=== PATIENT | male | born 1955 | race Caucasian/White ===

== ENCOUNTER → 2016-07-01 | Outpatient (CLI) | payer OTHER ==
[2016-07-01 17:43] LABS: BASO % 0.4 %; BASO ABS # 0.02 K/uL (0-0.2); COMPLETE YES; EOS % 0.9 %; HEMATOCRIT 44.4 % (42-52); IG% 0.2 %; LYMPH % 26.7 %; LYMPH ABS # 1.43 K/uL (1.2-3.4); MEAN CELL VOLUME 94.7 fL (80-100); MEAN CORPUSCULAR HEMOGLOBIN 32.4 pg (25-34); MEAN CORPUSCULAR HGB CONC 34.2 g/dl (32-36); MEAN PLATELET VOLUME 9.9 fL (7.4-10.4); MONO % 7.1 %; NEUT % 64.7 %; PLATELET COUNT 173 K/uL (130-400); RED BLOOD COUNT 4.69 M/uL (4.7-6.1); WHITE BLOOD COUNT 5.35 K/uL (4.8-10.8)
[2016-07-01 18:24] LABS: ALT/SGPT 20 U/L (12-78); AST/SGOT 12 U/L (15-37); BLOOD UREA NITROGEN 13 mg/dl (7-18); BUN/CREATININE RATIO 17.7 (10-20); CALCIUM 8.8 mg/dl (8.5-10.1); CARBON DIOXIDE 30 mmol/L (21-32); CHLORIDE 108 mmol/L (98-107); CHOLESTEROL 150 mg/dl (0-200); CREATININE 0.75 mg/dl (0.60-1.40); GLUCOSE 89 mg/dl (70-99); POTASSIUM 4.1 mmol/L (3.5-5.1); SODIUM 143 mmol/L (136-145)
[2016-07-01 18:36] LABS: ALB/GLOB RATIO 1.5 (0.9-2); ALKALINE PHOSPHATASE 110 U/L (45-117); CHOLESTEROL/HDL RATIO 3.2; HDL CHOLESTEROL 47 mg/dl; LDL CHOLESTEROL CALCULATED 87 mg/dl; TRIGLYCERIDES 82 mg/dl (0-150); VERY LOW DENSITY LIPOPROT CALC 16 mg/dl
[2016-07-02 06:13] LABS: ESTIMATED AVERAGE GLUCOSE 114 mg/dl; HA1C FLAG Normal (Normal)
== END | disposition home or self-care (01) ==
LOC: C.LABPVFM 11:18
PROVIDERS: ATTEND Neuromusculoskeletal Medicine & OMM
DX: Z00.00 Encounter for general adult medical examination without abnormal findings (principal); R53.83 Other fatigue

== ENCOUNTER → 2016-09-17 | Outpatient (CLI) | payer OTHER ==
[2016-09-17 12:44] LABS: BASO % 0.4 %; BASO ABS # 0.02 K/uL (0-0.2); COMPLETE YES; EOS % 1.9 %; HEMATOCRIT 42.6 % (42-52); IG% 0.2 %; LYMPH % 31.8 %; LYMPH ABS # 1.81 K/uL (1.2-3.4); MEAN CELL VOLUME 93.6 fL (80-100); MEAN CORPUSCULAR HEMOGLOBIN 32.5 pg (25-34); MEAN CORPUSCULAR HGB CONC 34.7 g/dl (32-36); MEAN PLATELET VOLUME 9.4 fL (7.4-10.4); NEUT % 59.7 %; PLATELET COUNT 189 K/uL (130-400); RED BLOOD COUNT 4.55 M/uL (4.7-6.1); WHITE BLOOD COUNT 5.69 K/uL (4.8-10.8)
[2016-09-17 13:10] LABS: BLOOD UREA NITROGEN 19 mg/dl (7-18); BUN/CREATININE RATIO 27.1 (10-20); CALCIUM 9.1 mg/dl (8.5-10.1); CARBON DIOXIDE 28 mmol/L (21-32); CHLORIDE 108 mmol/L (98-107); CREATININE 0.69 mg/dl (0.60-1.40); GLUCOSE 82 mg/dl (70-99); SODIUM 141 mmol/L (136-145)
== END | disposition home or self-care (01) ==
LOC: C.LAB 11:04
PROVIDERS: ATTEND Surgery
DX: Z01.812 Encounter for preprocedural laboratory examination (principal); K40.90 Unilateral inguinal hernia, without obstruction or gangrene, not specified as recurrent

== ENCOUNTER 2016-09-22 05:26 | Day surgery (SDC) | payer OTHER ==
[2016-09-19 14:42] VITALS: BMI 23.0
[~2016-09-22] VITALS: Ht 190.5 cm; Wt 84.1 kg
[2016-09-22 05:49] VITALS: BP 115/72; PULSE 65; TEMP 36.4; O2SAT 96; Ht 190.5 cm; Wt 84.1 kg
[2016-09-22] MEDS ORDERED: CEFAZOLIN 2000 MG/60 ML D5W IV SCH (06:00)
[2016-09-22] MEDS ORDERED: LACTATED RINGER'S 1000ML 1,000 ML IV SCH ×2 (06:00)
[2016-09-22] MEDS ORDERED: ROCURONIUM BROMIDE 10 MG/ML 5 ML VIAL ONE (06:16)
[2016-09-22] MEDS ORDERED: LIDOCAINE HCL 2% 2 ML VIAL (20MG/ML) ONE (06:16)
[2016-09-22] MEDS ORDERED: DEXAMETHASONE SOD INJ 4 MG/ML VIAL ONE (06:16)
[2016-09-22] MEDS ORDERED: MIDAZOLAM HCL 1 MG/ML 2ML VIAL ONE (06:16)
[2016-09-22] MEDS ORDERED: ONDANSETRON INJ 2 MG/ML 2 ML VIAL ONE (06:16)
[2016-09-22] MEDS ORDERED: PROPOFOL IV EMULSION 10 MG/ML 20 ML VIAL IV ONE ×2 (06:16→07:47)
[2016-09-22] MEDS ORDERED: FENTANYL CITRATE INJ 50 MCG/1 ML 2 ML VIAL ONE (06:17)
--- NOTE | 2016-09-22 07:02 | History & Physical Bridge Note ---
H&P Re-Evaluation Bridge Note: I have examined the patient, reviewed the History & Physical and in the interval since the performance of the History & Physical I have noted the following changes of clinical significance: No changes noted
[2016-09-22] MEDS ORDERED: SODIUM CHLORIDE 0.9% INJ 10 ML VIAL ONE (07:29)
[2016-09-22] MEDS ORDERED: EpHEDrine SULFATE INJ 50 MG/ML AMP ONE (07:29)
[2016-09-22] MEDS ORDERED: ATROPINE SULFATE 0.1 MG/ML 5ML SYR IV PRN (08:15)
[2016-09-22] MEDS ORDERED: FENTANYL CITRATE INJ 50 MCG/1 ML 2 ML VIAL IV PRN (08:15)
[2016-09-22] MEDS ORDERED: LABETALOL HCL IV 5 MG/ML 20ML IV PRN (08:15)
[2016-09-22] MEDS ORDERED: ONDANSETRON INJ 2 MG/ML 2 ML VIAL IV PRN ×2 (08:15→08:30)
[2016-09-22] MEDS ORDERED: KETOROLAC TROMETHAMINE 30 MG/ML VIAL IV. PRN (08:15)
[2016-09-22] MEDS: BUPIVACAINE/EPINEPHRINE 0.5% MPF 1:200,000 10 ML VIAL ONE (08:20)
[2016-09-22] MEDS ORDERED: HYDROCODONE/ACETAMOPHEN 5/325MG TAB PO PRN ×2 (08:30)
--- NOTE | 2016-09-22 08:34 | Discharge Instructions ---
Discharge Instructions Date of Service Sep 22, 2016. Admission Reason for Admission: Right Inguinal Hernia Discharge Discharge Diagnosis / Problem: Right Inguinal Hernia Discharge Goals Goal(s): Decrease discomfort, Improve function Activity Recommendations Activity Limitations: as noted below Lifting Limitations: no more than 10 pounds Exercise/Sports Limitations: until after follow-up appointment May Resume Sexual Activity: after follow-up appointment Shower/Bathe: tomorrow . Instructions / Follow-Up Instructions / Follow-Up Follow-up with Dr. Juares in the office in 1-2 weeks. Please call the office at [phone] to make an appointment if you do not have one already. Please call the office at [phone] with any questions or concerns. Current Hospital Diet Patient's current hospital diet: Discharge Diet Recommended Diet: Regular Diet Procedures Procedures Performed: Open right inguinal hernia repair with mesh Pending Studies Studies pending at discharge: no Laboratory Results Hemoglobin A1c Test 07/01/16 11:36 Range/Units Estimated Average Glucose 114 mg/dl Hemoglobin A1c 5.6 4.5-5.6 % Lipid Panel Test 07/01/16 11:36 Range/Units Triglycerides Level 82 0-150 mg/dl Cholesterol Level 150 0-200 mg/dl HDL Cholesterol 47 mg/dl Cholesterol/HDL Ratio 3.2 LDL Cholesterol, Calculated 87 mg/dl Medical Emergencies . Who to Call and When: Medical Emergencies: If at any time you feel your situation is an emergency, please call 911 immediately. . Non-Emergent Contact Non-Emergency issues call your: Primary Care Provider, Surgeon Call Non-Emergent contact if: temperature is above 101.5, your pain is not controlled, wound has increased drainage, wound has increased redness . "Provider Documentation" section prepared by Beth Khoury. . VTE Core Measure Inpt VTE Proph given/why not?: SCD's [place] Drug Monitoring Program Search Results: patient reviewed within database, no issues identified
--- NOTE | 2016-09-22 08:41 | [facility] Operative Report ---
Operative Report Operative Date Sep 22, 2016. Pre-Operative Diagnosis Right inguinal hernia Post-Operative Diagnosis direct and indirect inguinal hernias Procedure(s) Performed Open right inguinal hernia repair with mesh;ilioinguinal neurolysis Surgeon Dr. Juares Gunner'S Mate M Surgeon(s) Beth Khoury PA-C Estimated Blood Loss 10cc Findings direct and indirect inguinal hernia Anesthesia LMA Complication(s) None Disposition Recovery Room / PACU Description of Procedure After informed consent was obtained the patient taken to the operating suite placed in supine position. After successful placement of a laryngeal mask airway a Camacho catheter was placed and the lower abdomen was shaved and sterilely prepped and draped in usual fashion. We began with an inguinal incision with a 15 blade scalpel and carried down through the soft tissue using electrocautery. A Breezylander retractor was used to help with exposure. We skeletonized the external oblique aponeurosis and then made a small incision and it with a new blade. Metzenbaum scissors were used to extend this through the external ring as well as for several centimeters proximally. Once in the inguinal canal we were able to bluntly dissect the cord and cord structures away from surrounding tissue. I was able to gently elevate the cord off the pubic bone with blunt finger dissection and placed a Hilmar drain around it. As soon as we did this we noted that there was a moderate size direct hernia that was easily reducible. We examined the cord and cord structures and found a standard indirect hernia sac. We bluntly dissected this as well as small amounts electrocautery back to its neck. It then easily dunked back into the abdominal cavity leaving just the skeletonized cord and cord structures. We thoroughly irrigated the wound. We placed a keyhole polypropylene mesh as an onlay secured it distally to Samuel's ligament laterally along the shelving portion of Poupart's ligament and medially along the midline musculature. The "arms" wrapped around behind the cord and cord structures and secured underlying muscle. We used 0 Ethibond to perform all this. Final irrigation was performed. The mesh laid nice and tension-free without impinging the cord. We did use Marcaine around the edges of the mesh for postoperative analgesia. External oblique aponeurosis was closed using 2-0 Vicryl in a running fashion. Soft tissue was irrigated and closed using 3-0 Vicryl and skin was closed using 4-0 Monocryl. Some additional Marcaine was injected around the skin incision. Dermabond glue was used as a dressing. The patient was awaken extubated and transferred recovery in stable condition I attest to the content of the Intraoperative Record and any orders documented therein. Any exceptions are noted below.
[2016-09-22] MEDS ORDERED: SODIUM CHLORIDE 0.9% 1000ML 1,000 ML IV SCH (09:00)
--- NOTE | 2016-09-22 09:53 | Anesthesiology Progress Note ---
Anesthesia Post Op Note Date & Time Sep 22, 2016 at 09:53 Vital Signs Pain Intensity: 4 Vital Signs Past 12 Hours Date Time Temp Pulse Resp B/P (MAP) Pulse Ox O2 Delivery O2 Flow Rate FiO2 09/22/16 09:20 36.5 68 18 110/67 98 Room Air 09/22/16 09:15 67 21 103/54 96 Room Air 09/22/16 09:05 36.4 68 20 100/56 97 Room Air 09/22/16 08:55 65 12 99/59 100 Mask 10 09/22/16 08:45 72 15 108/70 98 Mask 10 09/22/16 08:35 85 16 132/81 99 Mask 10 09/22/16 08:28 36.3 85 13 119/78 99 Mask 10 09/22/16 05:49 36.4 65 22 115/72 (86) 96 Room Air Notes Mental Status: alert / awake / arousable, participated in evaluation Pt Amnestic to Procedure: Yes Nausea / Vomiting: adequately controlled Pain: adequately controlled Airway Patency, RR, SpO2: stable & adequate BP & HR: stable & adequate Hydration State: stable & adequate Anesthetic Complications: no major complications apparent
[2016-09-22 12:25] VITALS: BP 93/48; PULSE 63; TEMP 36.6; O2SAT 97
== END 2016-09-22 15:10 | disposition home or self-care (01) ==
LOC: C.OR 05:26
PROVIDERS: ATTEND Surgery
DX: K40.90 Unilateral inguinal hernia, without obstruction or gangrene, not specified as recurrent (principal); Z87.891 Personal history of nicotine dependence

== ENCOUNTER → 2016-10-21 | Outpatient (CLI) | payer OTHER ==
[~2016-10-21] VITALS: Ht 191.8 cm; Wt 84.0 kg
[2016-10-21 13:41] VITALS: BP 106/71; PULSE 77; Ht 191.8 cm; Wt 84.0 kg
== END | disposition home or self-care (01) ==
LOC: C.NEUR 13:33
PROVIDERS: ATTEND Physician Assistant Medical
DX: G47.33 Obstructive sleep apnea (adult) (pediatric) (principal); R53.83 Other fatigue

== ENCOUNTER → 2016-12-09 | Outpatient (CLI) | payer OTHER ==
[~2016-12-09] VITALS: Ht 191.8 cm; Wt 84.4 kg
[2016-12-09 15:51] VITALS: BP 118/76; PULSE 71; Ht 191.8 cm; Wt 84.4 kg
== END | disposition home or self-care (01) ==
LOC: C.NEUR 13:36
PROVIDERS: ATTEND Internal Medicine Pulmonary Disease
DX: G47.33 Obstructive sleep apnea (adult) (pediatric) (principal); R53.83 Other fatigue

== ENCOUNTER → 2017-03-10 | Outpatient (CLI) | payer OTHER ==
[~2017-03-10] VITALS: Ht 191.8 cm; Wt 89.0 kg
[2017-03-10 12:27] VITALS: BP 118/82; PULSE 71; Ht 191.8 cm; Wt 89.0 kg
== END | disposition home or self-care (01) ==
LOC: C.NEUR 12:00
PROVIDERS: ATTEND Physician Assistant Medical
DX: G47.33 Obstructive sleep apnea (adult) (pediatric) (principal); R53.83 Other fatigue

== ENCOUNTER → 2017-09-10 | Outpatient (CLI) | payer OTHER ==
[2017-09-10 12:48] LABS: BASO % 0.2 %; BASO ABS # 0.01 K/uL (0-0.2); EOS % 1.8 %; EOS ABS # 0.09 K/uL (0-0.5); HEMATOCRIT 44.4 % (42-52); HEMOGLOBIN 15.2 g/dL (14.0-18.0); IG# 0.01 K/uL (0.00-0.02); LYMPH % 31.8 %; LYMPH ABS # 1.62 K/uL (1.2-3.4); MEAN CELL VOLUME 94.3 fL (80-100); MEAN CORPUSCULAR HEMOGLOBIN 32.3 pg (25-34); MEAN CORPUSCULAR HGB CONC 34.2 g/dl (32-36); MEAN PLATELET VOLUME 9.9 fL (7.4-10.4); MONO % 6.9 %; MONO ABS # 0.35 K/uL (0.11-0.59); NEUT % 59.1 %; NEUT ABS # 3.02 K/uL (1.4-6.5); PLATELET COUNT 193 K/uL (130-400); RED CELL DISTRIBUTION WIDTH CV 13.3 % (11.5-14.5); RED CELL DISTRIBUTION WIDTH SD 45.8 fL (36.4-46.3)
[2017-09-10 13:12] LABS: ALBUMIN 3.9 gm/dl (3.4-5.0); ALKALINE PHOSPHATASE 95 U/L (45-117); ALT/SGPT 19 U/L (12-78); AST/SGOT 12 U/L (15-37); BLOOD UREA NITROGEN 17 mg/dl (7-18); CALCIUM 8.5 mg/dl (8.5-10.1); CARBON DIOXIDE 27 mmol/L (21-32); CHOLESTEROL 147 mg/dl (0-200); CREATININE 0.74 mg/dl (0.60-1.40); GLUCOSE 95 mg/dl (70-99); LDL CHOLESTEROL CALCULATED 89 mg/dl; SODIUM 142 mmol/L (136-145); TOTAL PROTEIN 6.5 gm/dl (6.4-8.2)
== END | disposition home or self-care (01) ==
LOC: C.LABPVFM 08:30
PROVIDERS: ATTEND Neuromusculoskeletal Medicine & OMM
DX: R53.83 Other fatigue (principal); Z13.220 Encounter for screening for lipoid disorders

== ENCOUNTER 2021-02-05 23:34 | Observation (INO) ==
[2021-02-05] MEDS ORDERED: SODIUM CHLORIDE 0.9% 1000ML 1,000 ML IV ONE ×2 (23:53)
[2021-02-05] MEDS ORDERED: ACETAMINOPHEN 500 MG TAB PO STA (23:54)
--- NOTE | 2021-02-05 23:59 | Emergency Department Note ---
Impression & Plan COVID-19, Acute hyponatremia, Hypoxia, Acute hypotension, Generalized weakness ED Provider Note Name: BONG CHAPMAN Age: 65 Sex: M Arrives Via: Walk-In Informant: Patient, ED Provider: You Vásquez MD Chief Complaint: Weakness Impression: As per impressions above Medical Decision Making: This is a 65-year-old gentleman with a history of obstructive sleep apnea, neuropathy, anxiety amongst other arrives for evaluation of significant worsening of weakness and exhaustion. Patient 13 days into Covid symptoms which initially been improving but over the last few days have been worsening. I will note patient states he is not vaccinated for Covid. On arrival patient is mildly hypotensive appears significantly dehydrated and is very tired appearing. He does not have any focal neurologic deficits nor any significant headache thus I do not feel neuroimaging warranted emergently. Chest x-ray obtained and reveals significant bilateral inflammation consistent with Covid. His oxygen was noted to drop to the upper 80s and he was placed on nasal cannula O2 with vast improvement in his symptoms. Labs returned significant hyponatremia which is new for patient. With an elevated D-dimer in the setting of Covid I did feel CTA was indicated which fortunately reveals no acute PE but does reveal significant lung inflammation. Patient did receive Decadron IV given his hypoxia in the setting of Covid despite he is almost 2 weeks into his symptoms. He does not have any clear evidence of a lobar pneumonia that would require antibiotics at this time. Patient does not have any evidence of coronary symptoms. Given the hypoxia, hyponatremia and his progressive worsening at home I do feel that hospitalization is indicated and hospitalist was consulted for further management. Prior Medical Record and Triage/Nursing Notes reviewed by Me Additional history obtained from chart Differentials:Reactive airway disease, pneumonia, pneumothorax, COPD, CHF, infections, cardiac ischemia, pulmonary embolism, musculoskeletal, gastrointestinal, as well as other pathologies. Vital Signs: reviewed and remarkable for hypoxia, hypotension Interventions: Normal saline bolus 2 L IV, Decadron 10 mg IV, nasal cannula O2 Labs:Reviewed and remarkable for elevated D-dimer Imagin view chest x-ray bilateral diffuse pulmonary infiltrates consistent with viral process Per stat rad read CT without PE does reveal significant bilateral pulmonary infiltrates consistent with viral process EKG:Per My Interpretation: Indication Weakness: NSR 70 bpm, qtc 436. No Ectopy. No Ischemia. Compared to EKG 1/19/21, no significant changes. Cardiac/Tele Monitoring: Cardiac Monitoring: An Order was placed for continuous cardiac monitoring. The monitor shows a rate of 70 with a normal sinus rhythm. Consults:Dr Dariusz SNYDER Hospitalist Plan: Disposition:Hospitalization. Condition: Good History of Present Illness:This is a 65-year-old gentleman who arrives for evaluation of weakness. Patient notes he developed Covid symptoms about 13 to 14 days ago and tested positive on 01/28/2021. He initially was starting to feel better until about 2 to 3 days ago. He has had rapidly worsening generalized weakness fatigue shortness of breath and exhaustion. He does note that he started having fevers again as well. He notes just walking around [place] makes him much weaker. Checking his oxygen at home he was noted to have pulse oximeter of 70% after ambulation. He states that rest seems to make symptoms better. He states he has lost all ability to eat and has only been able to drink a little bit over the last week or 2 due to his fatigue. He has no chest pain, back pain, abdominal pain, nausea, vomiting, rashes, urinary symptoms, black or bloody stools, leg swelling, rashes, headaches, neck pain, sore throat, runny nose nor other symptoms. He has been on no recent antibiotics. He uses Motrin for discomfort with mild improvement. He states he had some labs done this morning but is unsure of what the results are. Patient denies any recent falls, trauma, injuries, syncope. Patient denies any history of DVT/PE. Patient denies any calf pain or swelling. ROS: See above HPI for pertinent positives & negatives. A total of 10 systems reviewed and were otherwise negative. 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 EYES: No scleral icterus, unremarkable pupils. ENT: Mucous membranes dry, no nasal congestion. NECK: No masses appreciated, nomeningismus, trachea is midline. RESPIRATORY: Mild dyspnea, diffuse crackles. Equal bilaterally. No wheeze, no rhonchi. CARDIOVASCULAR: Regular rate and rhythm.No murmurs, rubs, gallops appreciated. GASTROINTESTINAL: Abdomen soft, non-tender, no peritonitis.Bowel sounds positive.No masses appreciated. BACK: No midline tenderness, no CVA tenderness EXTREMITIES: Normal motion all extremities, no cyanosis, no edema. NEUROLOGIC: Alert and oriented, no acute motor or sensory deficits, no focal weakness, cranial nerves grossly intact. SKIN: No rash, no jaundice, no diaphoresis. PSYCH: Appropriate GCS: 15 ED Course: Times/Reassessments: With IV fluids and nasal cannula O2 patient is feeling much better he is breathing comfortably and is in no distress. He is agreeable to hospitalist evaluation and hospitalization. You Vásquez MD Past Med/Surg History Medical History Arthritis Emphysema lung Hepatitis A History of cardiac murmur as a child Neuropathy Scoliosis Situational anxiety Sleep apnea Surgical History H/O left knee surgery H/O right inguinal hernia repair History of cataract surgery History of colonoscopy History of hernia surgery History of laparoscopy History of non-cataract eye surgery History of surgery History of tonsillectomy and adenoidectomy S/P ankle fusion S/P hernia repair S/P left knee arthroscopy Family History Sister Breast cancer Cancer Father Prostate cancer Family history of cardiac disorder Hypertension Cancer Mother Family history of cardiac disorder Diabetes Hypertension Cancer Other SIDS (sudden infant syndrome) Denies family history of Colon cancer Ovarian cancer Crohn's disease Myocardial infarction Ulcerative colitis Social History Smoking Status: Never smoker Tobacco Type: Cigarettes Age Started Using Tobacco: 12; Age Quit Using Tobacco: 22; packs per day: 0.5; Second Hand Exposure: No; Hx Alcohol Use: Yes Alcohol type: wine Alcohol Intake Frequency Comment: 2 glasses of wine a day Hx Substance Use: No Preferred Language: Slovak Communication Ability: Effective Visual Impairment: No Limitations Hearing Ability: Normal Business Segment Manager Required: No Beliefs That Will Affect Care: None marital status: / Current Living Situation: Other Current Living Situation Comment: lives with twin sons current occupational status: retired current occupation: used to work in [employer] Feels Safe at Home: Yes Childhood Exposure to Second-Hand Smoke: No Diet Comment: radha lawson Dental Care, Regularly: Yes Physical Activity Frequency: Daily Physical Activity Frequency Comment: gardening, housework, yardwork Seatbelt Use: always Sunscreen Use: No Assistive Devices: Glasses Allergies Allergies Allergy/AdvReac Type Severity Reaction Status Date / Time No Known Allergies Allergy Verified 02/05/21 23:48 Home Meds Home Medications Medication Instructions Recorded Confirmed No Known Home Medications 01/29/21 02/05/21 Results & Data (ED) Vital Signs Vital Signs - 24 hr 02/05/21 23:38 02/05/21 23:49 02/05/21 23:53 Temperature 38.3 C H Temperature Source Temporal Artery Scan Pulse Rate 82 Pulse Rate [Exercises] 79 Pulse Rate [Right Finger] 76 Respiratory Rate 16 17 Respiratory Rate [Exercises] 20 Respiratory Effort / Characteristics Non-Labored Spontaneous Respiratory Depth Normal Blood Pressure 111/61 Blood Pressure [Right Arm] 100/68 Blood Pressure Mean 77 Blood Pressure Mean [Right Arm] 78 Blood Pressure Position Sitting Pulse Oximetry 93 92 Pulse Oximetry [Exercises] 88 L Oxygen Delivery Method Room Air Room Air Room Air Oxygen Flow Rate Sepsis Recent Fever Within 48 Hours Yes Sepsis New/Unexplained Change in Mental Status N/A Sepsis Action Taken by Nursing No Action Required Oxygen Flow Rate - Titration Pulse Oximetry Post Tiitration 02/06/21 01:27 02/06/21 01:36 02/06/21 03:36 Temperature Temperature Source Pulse Rate Pulse Rate [Exercises] Pulse Rate [Right Finger] 80 81 Respiratory Rate 18 16 Respiratory Rate [Exercises] Respiratory Effort / Characteristics Respiratory Depth Blood Pressure Blood Pressure [Right Arm] 109/44 L 106/72 Blood Pressure Mean Blood Pressure Mean [Right Arm] 65 83 Blood Pressure Position Pulse Oximetry 90 94 94 Pulse Oximetry [Exercises] Oxygen Delivery Method Room Air Nasal Cannula Nasal Cannula Oxygen Flow Rate 2 2 Sepsis Recent Fever Within 48 Hours Sepsis New/Unexplained Change in Mental Status Sepsis Action Taken by Nursing Oxygen Flow Rate - Titration 2 Pulse Oximetry Post Tiitration 96 Laboratory Data Result diagrams: 02/06/21 00:00 02/06/21 00:00 Lab Results 02/06/21 02/06/21 02/06/21 Range/Units 00:00 00:00 00:00 WBC 3.62 L (4.8-10.8) K/uL RBC 4.21 L (4.7-6.1) M/uL Hgb 13.7 L (14.0-18.0) g/dL Hct 37.9 L (42-52) % MCV 90.0 (80-100) fL MCH 32.5 (25-34) pg MCHC 36.1 H (32-36) g/dL RDW Std Deviation 41.5 (36.4-46.3) fL RDW Coeff of Heather 12.6 (11.5-14.5) % Plt Count 187 (130-400) K/uL MPV 9.8 (7.4-10.4) fL Immature Gran % (Auto) 0.3 % Neut % (Auto) 82.9 % Lymph % (Auto) 11.0 % Brown % (Auto) 5.5 % Eos % (Auto) 0.0 % Baso % (Auto) 0.3 % Neut # (Auto) 3.00 (1.4-6.5) K/uL Lymph # (Auto) 0.40 L (1.2-3.4) K/uL Brown # (Auto) 0.20 (0.11-0.59) K/uL Eos # (Auto) 0.00 (0-0.5) K/uL Baso # (Auto) 0.01 (0-0.2) K/uL Immature Gran # (Auto) 0.01 (0.00-0.02) K/uL D-Dimer 1430 H* (0-500) ug/L FEU Sodium 125 L (136-145) mmol/L Potassium 3.5 (3.5-5.1) mmol/L Chloride 89 L (98-107) mmol/L Carbon Dioxide 28 (21-32) mmol/L Anion Gap 8.0 (3-11) BUN 12 (7-18) mg/dl Creatinine 0.64 (0.6-1.4) mg/dl Est Cr Clr Drug Dosing 129.4 ml/min Est GFR ( Amer) 117.4 ml/min Est GFR (Non-Af Amer) 101.3 ml/min BUN/Creatinine Ratio 18.6 (10-20) Glucose 113 H (70-99) mg/dl Osmolality (280-300) mOsm/kg Calcium 8.0 L (8.5-10.1) mg/dl Magnesium 2.4 (1.8-2.4) mg/dl Total Bilirubin 0.4 (0.2-1) mg/dl Direct Bilirubin 0.2 (0-0.2) mg/dl AST 46 H (15-37) U/L ALT 40 (12-78) Alkaline Phosphatase 93 (45-117) U/L Troponin I < 0.015 (0-0.045) ng/ml Total Protein 5.9 L (6.4-8.2) gm/dl Albumin 2.5 L (3.4-5.0) gm/dl Procalcitonin (0-0.5) ng/ml 02/06/21 02/06/21 Range/Units 00:00 00:00 WBC (4.8-10.8) K/uL RBC (4.7-6.1) M/uL Hgb (14.0-18.0) g/dL Hct (42-52) % MCV (80-100) fL MCH (25-34) pg MCHC (32-36) g/dL RDW Std Deviation (36.4-46.3) fL RDW Coeff of Heather (11.5-14.5) % Plt Count (130-400) K/uL MPV (7.4-10.4) fL Immature Gran % (Auto) % Neut % (Auto) % Lymph % (Auto) % Brown % (Auto) % Eos % (Auto) % Baso % (Auto) % Neut # (Auto) (1.4-6.5) K/uL Lymph # (Auto) (1.2-3.4) K/uL Brown # (Auto) (0.11-0.59) K/uL Eos # (Auto) (0-0.5) K/uL Baso # (Auto) (0-0.2) K/uL Immature Gran # (Auto) (0.00-0.02) K/uL D-Dimer (0-500) ug/L FEU Sodium (136-145) mmol/L Potassium (3.5-5.1) mmol/L Chloride (98-107) mmol/L Carbon Dioxide (21-32) mmol/L Anion Gap (3-11) BUN (7-18) mg/dl Creatinine (0.6-1.4) mg/dl Est Cr Clr Drug Dosing ml/min Est GFR ( Amer) ml/min Est GFR (Non-Af Amer) ml/min BUN/Creatinine Ratio (10-20) Glucose (70-99) mg/dl Osmolality 257 L (280-300) mOsm/kg Calcium (8.5-10.1) mg/dl Magnesium (1.8-2.4) mg/dl Total Bilirubin (0.2-1) mg/dl Direct Bilirubin (0-0.2) mg/dl AST (15-37) U/L ALT (12-78) Alkaline Phosphatase (45-117) U/L Troponin I (0-0.045) ng/ml Total Protein (6.4-8.2) gm/dl Albumin (3.4-5.0) gm/dl Procalcitonin 0.11 (0-0.5) ng/ml Administered Medications Discontinued Medications Acetaminophen (Acetaminophen 500 Mg Tab) 1,000 mg PO NOW STA Stop: 02/05/21 23:55 Last Admin: 02/06/21 00:14 Dose: 1,000 mg Documented by: [id number] Dexamethasone Sodium Phosphate (DexamethasonePf 10 Mg/Ml Vial) 10 mg IV NOW ONE Stop: 02/06/21 02:09 Last Admin: 02/06/21 02:49 Dose: 10 mg Documented by: [id number] Sodium Chloride (Nss 1000ml) 1,000 mls @ 999 mls/hr IV .Q1H1M ONE Stop: 02/06/21 00:53 Last Infusion: 02/06/21 01:47 Dose: 0 mls/hr Documented by: [id number] Admin: 02/06/21 00:11 Dose: 999 mls/hr Documented by: [id number] Sodium Chloride (Nss 1000ml) 1,000 mls @ 999 mls/hr IV .Q1H1M ONE Stop: 02/06/21 00:53 Last Infusion: 02/06/21 03:03 Dose: 0 mls/hr Documented by: [id number] Admin: 02/06/21 01:47 Dose: 999 mls/hr Documented by: [id number] Ioversol (Optiray 320 125ml) 120 ml IV ONCE ONE Stop: 02/06/21 01:50 Last Admin: 02/06/21 01:49 Dose: 120 ml Documented by: [id number] Discharge Plan Visit Data Chief Complaint: Illness Stated Complaint: CONFUSION,NO ENERGY - O2 LEVEL LOW ED Provider: You Vásquez Discharge Problem: COVID-19, Acute hyponatremia, Hypoxia, Acute hypotension, Generalized weakness Forms Stand Alone Forms: [facility] Move In History Prescriptions Prescriptions: No Action No Known Home Medications RF: 0 Referrals Referrals: Jd Chapman, [Primary Care Provider] -
[2021-02-06 00:27] LABS: Basophils # (auto) 0.01 K/uL (0-0.2); Basophils % (auto) 0.3 %; Hematocrit (blood only) 37.9 % (42-52); Hemoglobin 13.7 g/dL (14.0-18.0); Immature Granulocytes # (auto) 0.01 K/uL (0.00-0.02); Immature Granulocytes % (auto) 0.3 %; Mean Corpuscular Hemoglobin 32.5 pg (25-34); Mean Corpuscular Hgb Conc 36.1 g/dL (32-36); Mean Platelet Volume 9.8 fL (7.4-10.4); Monocytes % (auto) 5.5 %; Neutrophils % (auto) 82.9 %; Platelet Count 187 K/uL (130-400); RDW Coefficient of Variation 12.6 % (11.5-14.5); RDW Standard Deviation 41.5 fL (36.4-46.3); Red Blood Count 4.21 M/uL (4.7-6.1); White Blood Count 3.62 K/uL (4.8-10.8)
[2021-02-06 00:44] LABS: Alanine Aminotransferase 40 (12-78); Albumin Level 2.5 gm/dl (3.4-5.0); Aspartate Aminotransferase 46 U/L (15-37); BUN Creatinine Ratio 18.6 (10-20); Bilirubin Direct 0.2 mg/dl (0-0.2); Blood Urea Nitrogen 12 mg/dl (7-18); Carbon Dioxide 28 mmol/L (21-32); Chloride 89 mmol/L (98-107); Creatinine Clr Calc Pharmacy 129.4 ml/min; Est GFR (African American) 117.4 ml/min; Est GFR (Non-African American) 101.3 ml/min; Glucose 113 mg/dl (70-99); Magnesium 2.4 mg/dl (1.8-2.4); Potassium 3.5 mmol/L (3.5-5.1); Sodium 125 mmol/L (136-145)
[2021-02-06 00:49] LABS: Alkaline Phosphatase 93 U/L (45-117); Bilirubin,Total 0.4 mg/dl (0.2-1); Total Protein 5.9 gm/dl (6.4-8.2); Troponin I < 0.015 ng/ml (0-0.045)
[2021-02-06 01:26] LABS: D Dimer 1430 ug/L FEU (0-500)
[2021-02-06] MEDS ORDERED: OPTIRAY 320 125ml IV ONE (01:49)
[2021-02-06] MEDS ORDERED: dexAMETHasone**PF** 10 MG/ML VIAL IV ONE (02:08)
[2021-02-06] MEDS ORDERED: PIPERACILLIN/TAZOBACTAM 4.5 GM/120 ML BAG IV ONE (03:16)
[2021-02-06] MEDS ORDERED: PIPERACILL/TAZOBAC CONSULT ACTIVE PRN ×2 (03:16→04:41)
[2021-02-06] MEDS ORDERED: AZITHROMYCIN 500 MG in DEXTROSE 5% 250 ML IV ONE (03:30)
--- NOTE | 2021-02-06 03:32 | History & Physical Report ---
Date of Service February 06, 2021 Assessment & Plan (1) Pneumonia due to COVID-19 virus: Plan: COVID-19 pneumonia/secondary bacterial pneumonia- Patient's history of improving and then worsening symptoms over the past 3 days, suggestive of above. Dexamethasone 6 mg IV every morning Duonebs every 4 hours while awake and every 2 hours when necessary. Zosyn 4.5 g IV every 8 hours Azithromycin 500 mg IV daily Nasal cannula oxygen, titrate to O2 sat of 94% Guaifenesin extended release 1200 mg p.o. twice daily (2) Secondary bacterial pneumonia: Plan: See above (3) Hypoxia: Plan: See above (4) Acute hyponatremia: Plan: Sodium 125, serum osmolality 253, urine osmolality pending He did receive 2 L normal saline from the ED Repeat laboratories in a.m., and further management once return of urine osmolality findings (5) Mild obstructive sleep apnea: Plan: CPAP at bedtime as needed (6) CPAP (continuous positive airway pressure) dependence: Plan: See above History of Present Illness Chief Complaint: The patient presents to the emergency department with complaint of shortness of breath that began on 01/25, had a positive COVID-19 testing on 01/28, had been having continued improvement in symptoms, until 3 days ago, when he began having more significant productive cough and temperatures. Primary Care Provider: Jd Evans DO The patient is a 65-year-old male with a past medical history including eustachian tube dysfunction, somatic dysfunction of rib and lower extremities, sleep disturbances, peripheral neuropathy, mild BLAYNE, CPAP dependence, right inguinal hernia, and situational anxiety. He presents with symptoms as noted above. Significant laboratories: Hemoglobin 13.7, hematocrit 37.9, sodium 125, potassium 3.5, chloride 89, bicarb 28, AST 46, D-dimer 1430, albumin 2.5. Patient was COVID-19 positive on 01/28, but not repeated in the ED this evening. Pulse ox was 88% on room air Chest x-ray/CT angio PE protocol showed multifocal pneumonia, left significantly greater than right. Mild pericardial fluid was also noted. From the ED patient received dexamethasone 10 mg IV and 2 L normal saline Allergies Allergy/AdvReac Type Severity Reaction Status Date / Time No Known Allergies Allergy Verified 02/05/21 23:48 Home Medications Medication Instructions Recorded Confirmed Type No Known Home Medications 01/29/21 02/05/21 History Past Med/Surg History Medical History Arthritis Emphysema lung Hepatitis A History of cardiac murmur as a child Neuropathy Scoliosis Situational anxiety Sleep apnea Surgical History H/O left knee surgery H/O right inguinal hernia repair History of cataract surgery History of colonoscopy History of hernia surgery History of laparoscopy History of non-cataract eye surgery History of surgery History of tonsillectomy and adenoidectomy S/P ankle fusion S/P hernia repair S/P left knee arthroscopy Family History Sister Breast cancer Cancer Father Prostate cancer Family history of cardiac disorder Hypertension Cancer Mother Family history of cardiac disorder Diabetes Hypertension Cancer Other SIDS (sudden infant syndrome) Denies family history of Colon cancer Ovarian cancer Crohn's disease Myocardial infarction Ulcerative colitis Social History Smoking Status: Never smoker Tobacco Type: Cigarettes Age Started Using Tobacco: 12; Age Quit Using Tobacco: 22; packs per day: 0.5; Second Hand Exposure: No; Hx Alcohol Use: Yes Alcohol type: wine Alcohol Intake Frequency Comment: 2 glasses of wine a day Hx Substance Use: No Preferred Language: [place] Communication Ability: Effective Visual Impairment: No Limitations Hearing Ability: Normal Yeast Pumper Required: No Beliefs That Will Affect Care: None marital status: / Current Living Situation: Other Current Living Situation Comment: lives with twin sons current occupational status: retired current occupation: used to work in [employer] Feels Safe at Home: Yes Childhood Exposure to Second-Hand Smoke: No Diet Comment: radha lawosn Dental Care, Regularly: Yes Physical Activity Frequency: Daily Physical Activity Frequency Comment: gardening, housework, yardwork Seatbelt Use: always Sunscreen Use: No Assistive Devices: Glasses Review of Systems Review of Systems: The patient denies chest pain, palpitations, lower e xtremity swelling, sore throat, fevers, chills, sweats, nausea, vomiting, diarrhea , constipation, abdominal pain, pelvic pain, blood in urine or stool, dysuria, urinary frequency or urgency, lightheadedness, dizziness, headache, memory loss, loss of consciousness, rash, abnormal bruising or bleeding, imbalance, focal weakness, numbness or tingling in arms or legs, generalized arthralgias or myalgias, back or neck pain, or night sweats. The review of systems is otherwise negative other than for that already noted above, and at least 10 systems have been reviewed. Physical Exam Physical Exam: The patient is awake, alert and oriented 3, well developed and well nourished, normocephalic and atraumatic, lying in bed and in no acute distress. HEENT--PERRL, EOMI, mucous membranes and oropharynx normal. Neck--supple. No JVD. No bruits. Thyroid normal, trachea midline, no adenopathy. Heart--normal S1 and S2. No murmurs, rubs or gallops. Lungs--coarse breath sounds bilaterally, left greater than right. No respiratory distress, no accessory muscle use. Abdomen--normal bowel sounds and soft. Nontender. Nondistended. Extremities--no cyanosis or clubbing. No edema. Dermatologic--normal skin turgor, normal color, no abnormal lymph nodes, no rash. Neurologic--cranial nerves II through XII grossly intact. Rheumatologic--normal range of motion. Psychiatric--normal affect. Results & Data Results & Data ([facility]) Vital Signs (Past 12 Hours) Vital Signs Temp Pulse Pulse Pulse Resp Resp BP 02/06/21 01:27 02/05/21 23:53 79 20 02/05/21 23:49 76 17 02/05/21 23:38 38.3 C H 82 16 111/61 BP Pulse Ox Pulse Ox 02/06/21 01:27 90 02/05/21 23:53 88 L 02/05/21 23:49 100/68 92 02/05/21 23:38 93 Laboratory Results Laboratory Results WBC 3.62 K/uL (4.8-10.8) L 02/06/21 00:00 RBC 4.21 M/uL (4.7-6.1) L 02/06/21 00:00 Hgb 13.7 g/dL (14.0-18.0) L 02/06/21 00:00 Hct 37.9 % (42-52) L 02/06/21 00:00 MCV 90.0 fL (80-100) 02/06/21 00:00 MCH 32.5 pg (25-34) 02/06/21 00:00 MCHC 36.1 g/dL (32-36) H 02/06/21 00:00 RDW Std Deviation 41.5 fL (36.4-46.3) 02/06/21 00:00 RDW Coeff of Heather 12.6 % (11.5-14.5) 02/06/21 00:00 Plt Count 187 K/uL (130-400) 02/06/21 00:00 MPV 9.8 fL (7.4-10.4) 02/06/21 00:00 Immature Gran % (Auto) 0.3 % 02/06/21 00:00 Neut % (Auto) 82.9 % 02/06/21 00:00 Lymph % (Auto) 11.0 % 02/06/21 00:00 Hendricks % (Auto) 5.5 % 02/06/21 00:00 Eos % (Auto) 0.0 % 02/06/21 00:00 Baso % (Auto) 0.3 % 02/06/21 00:00 Neut # (Auto) 3.00 K/uL (1.4-6.5) 02/06/21 00:00 Lymph # (Auto) 0.40 K/uL (1.2-3.4) L 02/06/21 00:00 Hendricks # (Auto) 0.20 K/uL (0.11-0.59) 02/06/21 00:00 Eos # (Auto) 0.00 K/uL (0-0.5) 02/06/21 00:00 Baso # (Auto) 0.01 K/uL (0-0.2) 02/06/21 00:00 Immature Gran # (Auto) 0.01 K/uL (0.00-0.02) 02/06/21 00:00 D-Dimer 1430 ug/L FEU (0-500) H* 02/06/21 00:00 Sodium 125 mmol/L (136-145) L 02/06/21 00:00 Potassium 3.5 mmol/L (3.5-5.1) 02/06/21 00:00 Chloride 89 mmol/L (98-107) L 02/06/21 00:00 Carbon Dioxide 28 mmol/L (21-32) 02/06/21 00:00 Anion Gap 8.0 (3-11) 02/06/21 00:00 BUN 12 mg/dl (7-18) 02/06/21 00:00 Creatinine 0.64 mg/dl (0.6-1.4) 02/06/21 00:00 Est Cr Clr Drug Dosing 129.4 ml/min 02/06/21 00:00 Est GFR ( Amer) 117.4 ml/min 02/06/21 00:00 Est GFR (Non-Af Amer) 101.3 ml/min 02/06/21 00:00 BUN/Creatinine Ratio 18.6 (10-20) 02/06/21 00:00 Glucose 113 mg/dl (70-99) H 02/06/21 00:00 Osmolality 257 mOsm/kg (280-300) L 02/06/21 00:00 Calcium 8.0 mg/dl (8.5-10.1) L 02/06/21 00:00 Magnesium 2.4 mg/dl (1.8-2.4) 02/06/21 00:00 Total Bilirubin 0.4 mg/dl (0.2-1) 02/06/21 00:00 Direct Bilirubin 0.2 mg/dl (0-0.2) 02/06/21 00:00 AST 46 U/L (15-37) H 02/06/21 00:00 ALT 40 (12-78) 02/06/21 00:00 Alkaline Phosphatase 93 U/L (45-117) 02/06/21 00:00 Troponin I < 0.015 ng/ml (0-0.045) 02/06/21 00:00 Total Protein 5.9 gm/dl (6.4-8.2) L 02/06/21 00:00 Albumin 2.5 gm/dl (3.4-5.0) L 02/06/21 00:00 Procalcitonin 0.11 ng/ml (0-0.5) 02/06/21 00:00 Code Status & VTE Plan Code Status Full code VTE Prophylaxis Plan VTE Prophylaxis will be ordered: Yes PG Care Time/CCT Total # of Minutes Spent Total Time Spent with Patient: Total time spent is greater than 50% in coordination of care (as documented) at patient's floor/unit and/or counseling patient: Coding Level of Care Code 01595 Initial Inpt Care Lvl 3 Diagnoses Secondary bacterial pneumonia J15.9 Pneumonia due to COVID-19 virus U07.1; J12.82 Acute hyponatremia E87.1 Hypoxia R09.02 Mild obstructive sleep apnea G47.33 CPAP (continuous positive airway pressure) dependence Z99.89
[2021-02-06] MEDS ORDERED: ONDANSETRON INJ 2 MG/ML 2 ML VIAL IV PRN (04:41)
[2021-02-06] MEDS ORDERED: ACETAMINOPHEN 325 MG TAB PO PRN (04:41)
[2021-02-06 06:04] LABS: Appearance Urine Clear (Clear); Bilirubin Urine Negative (Negative); Blood Urine Negative (Negative); Color Urine Yellow; Glucose Urine UA Negative (Negative); Ketones Urine Negative (Negative); Leukocyte Esterase Urine Negative (Negative); Nitrite Urine Negative (Negative); Protein Urine Negative (Negative); Specific Gravity Urine 1.019 (1.000-1.030); Urobilinogen Urine Negative (Negative)
[2021-02-06] MEDS ORDERED: ALBUT/IPRATROP 3MG/0.5MG NEB 3 ML VIAL NEB SCH (07:00)
--- NOTE | 2021-02-06 07:00 | XRay Report ---
XR chest 1V portable CLINICAL HISTORY: weakness, sob. Positive Covid COMPARISON STUDY: 03/06/2020 TECHNIQUE: 1 view of the chest FINDINGS: Single frontal view of the chest demonstrates the heart size to be at the upper limits of normal to m ildly enlarged. Patchy interstitial and alveolar opacities are now present bilaterally. The findings are most characteristic of a viral type pneumonitis. Covid 19 pneumonia should be excluded. Additiona lly, there is hyperinflation of the lungs with attenuation of the pulmonary vasculature peripherally characteristic of underlying chronic obstructive pulmonary disease. There is no evidence for pleural effusion. There is no evidence for vascular congestion. There is no acute osseous pathology. IMPRESSION: Patchy interstitial and alveolar opacities are now present bilaterally characteristic of a viral type pneumonitis and probable early Covid 19 pneumonia. Evidence for underlying COPD. ACT 112: Negative or not required by law. Electronically signed by: Shaheen Frausto M.D. 02/06/2021 6:58 AM
--- NOTE | 2021-02-06 07:24 | CT Scan Report ---
CT angio chest PE protocol CLINICAL HISTORY: Shortness of breath. Elevated d-dimer. Evaluate for pulmonary embolus. COMPARISON STUDY: Portable chest from 02/06/2021 CT DOSE: 337.55 mGy.cm TECHNIQUE: CT Angio of the chest was performed.followed by image post processing with coronal, and s agittal MIP reformats. Contrast Volume: Optiray 320, 120 ml FINDINGS: Vasculature: There is homogeneous perfusion of the pulmonary vasculature bilaterally. No intraluminal filling defects or evidence for pulmonary embolus is seen. Airway: The airway is clear. No endobronchial lesion is identified. Lungs: Extensive groundglass opacities are present throughout both lungs characteristic of a viral ty pe pneumonitis and Covid 19 pneumonia. Additionally, there is bibasilar atelectasis. No confluent clarissa eolar opacities or bronchograms are seen. No significant emphysematous changes are seen as suggested radiographically. Pleura: There are very small bilateral pleural effusions. There is no evidence for pneumothorax. Mediastinum: There is no evidence for pathologic adenopathy. The heart size is mildly enlarged. The t horacic aorta is within normal limits. There is very minimal pericardial thickening. Upper abdomen:The adrenal glands are normal bilaterally. Incidental note is made of a left renal cyst . Osseous structures: There is no acute osseous pathology. Impression: 1. No CTA evidence for pulmonary embolus. 2. Extensive groundglass opacities are present throughout both lungs characteristic of a viral type p neumonitis and Covid 19 pneumonia. 3. There is also evidence for bibasilar atelectasis and very small bilateral pleural effusions. ACT 112: Negative or not required by law. Electronically signed by: Shaheen Frausto M.D. 02/06/2021 7:22 AM
[2021-02-06] MEDS: dexAMETHasone 6 MG in SYRINGE 0 ML IV SCH (08:33)
[2021-02-06] MEDS: guaiFENesin 600 MG TABCR PO SCH ×2 (08:34→21:27)
[2021-02-06] MEDS ORDERED: PIPERACILLIN/TAZOBACTAM 4.5 GM in DEXTROSE 5% 100 ML IV SCH (10:00)
[2021-02-06] MEDS: cefTRIAXone SODIUM 2,000 MG in DEXTROSE 5% 50 ML IV SCH (10:17)
[2021-02-06] MEDS ORDERED: ALBUT/IPRATROP 3MG/0.5MG NEB 3 ML VIAL NEB PRN (10:54)
[2021-02-06] MEDS: SODIUM CHLORIDE 1 GM TABLET PO SCH ×2 (15:48→21:27)
--- NOTE | 2021-02-06 19:46 | Hospitalist Progress Note ---
Date of Service February 06, 2021 Assessment & Plan (1) Pneumonia due to COVID-19 virus: Plan: Seems most likely this is all ongoing Covid/viral pneumonia/immune mediated inflammation, rather than secondary bacterial overgrowth, but really difficult to tell for sureand he is certainly far into the course of illness still with temperatures, and with radiographic findings consistent with infiltrate. His CRP is high enough to be either viral or a degree of bacterial, his pro-Sravan is somewhat reassuringwill continue to follow clinically, continue antibiotics in the form of Zithromax and Rocephin at this point time, serial exams/serial labslow threshold to stop antibiotics if it becomes clear this is all viral, but at this point its safer to continue to treat as though both are going on. -Dexamethasone given that he is probably into the phase of Covid where his immune system mediated inflammation is causing as much problems as the virus itself. Fortunately oxygen requirement seems to be improving -With oxygen requirement staying at the low end, and improving, does not appear to be a candidate (nor require) monoclonal antibodies such as baricitinib -Too far into the course of illness to benefit from spike protein monoclonal antibodies, or remdesivir -Continue supportive care -Suspect even more than the pneumonia portion of this, the malnutrition/hyponatremia is largely driving his symptoms (2) Secondary bacterial pneumonia: Plan: See above (3) Hypoxia: Plan: See above, fortunately seems to be mild and improving (4) Acute hyponatremia: Plan: Suspect all reflective of acute (what sounds to be fairly severe) malnutritionI suspect his acute malnutrition and acute hyponatremia are driving a lot of his symptoms of restlessness and feelings of doomgiven that from a breathing standpoint, and he is still suffering from Covid pneumonia, it is likely safer to keep him on the dry side of euvolemicrather than further saline, will replace sodium with salt tabs, and encourage p.o. intake. Dietitian assistance for p.o. intake/acute malnutrition as well. (5) Mild obstructive sleep apnea: Plan: CPAP at bedtime as needed (6) CPAP (continuous positive airway pressure) dependence: Plan: See above (7) DVT prophylaxis: Plan: Lovenox (8) Discharge planning issues: Plan: Stable for medical, definitely need to get his overall situation improved, particularly electrolytes and nutritional status, and ensure that his hypoxia/pneumonia are improvinghowever, he comes from home/lives independently, and I suspect he will be able to return to this. Admission and Anticipated Discharge Date Admission Date: February 06, 2021 Subjective Notes that he was generally feeling lousy for pretty much the whole time at home. Poor appetite, things not tasting rightbelieves he has lost about 8 pounds over the last 10 to 12 days. Notes that at home he was very restless, not comfortable anywhere, up and down all the time hot and cold all the time. Not a lot as far as shortness of breath. Review of Systems Review of Systems: All systems reviewed & are unremarkable except as noted in HPI & below Physical Exam Physical Exam: Awake and alert pleasant no distress. HEENT normocephalic atraumatic mucous membranes are moist. Lungs are clear to auscultation overall, no rales rhonchi or wheeze with good effort. Of note, while he had 2 L nasal cannula on his face during our discussion, the cannula was actually on his cheek and his O2 sats still were no lower than 91. Extremities without cyanosis or clubbing. No focal neuro deficits. Results & Data Results & Data ([facility]) Vital Signs (Past 12 Hours) Vital Signs Pulse Resp BP Pulse Ox 02/06/21 13:55 67 22 95/55 L 93 02/06/21 08:11 67 26 H 103/68 92 PG Care Time/CCT Total # of Minutes Spent Total Time Spent with Patient: Total time spent is greater than 50% in coordination of care (as documented) at patient's floor/unit and/or counseling patient: Coding Level of Care Code 59734 Subseq Hosp Care Lvl 3 Diagnoses Pneumonia due to COVID-19 virus U07.1; J12.82 Secondary bacterial pneumonia J15.9 Hypoxia R09.02 Acute hyponatremia E87.1 Mild obstructive sleep apnea G47.33 CPAP (continuous positive airway pressure) dependence Z99.89 DVT prophylaxis Z29.9 Discharge planning issues Z02.9
[2021-02-06] MEDS: ENOXAPARIN INJ 40 MG/0.4 ML SYR SQ SCH (20:50)
[2021-02-06] MEDS: MELATONIN 3 MG TAB PO PRN (21:26)
[2021-02-07] MEDS: AZITHROMYCIN 500 MG in DEXTROSE 5% 250 ML IV SCH (06:21)
[2021-02-07 06:26] LABS: Hemoglobin 13.5 g/dL (14.0-18.0); Immature Granulocytes # (auto) 0.06 K/uL (0.00-0.02); Immature Granulocytes % (auto) 1.5 %; Lymphocytes # (auto) 0.55 K/uL (1.2-3.4); Lymphocytes % (auto) 13.6 %; Mean Corpuscular Hemoglobin 31.7 pg (25-34); Mean Corpuscular Hgb Conc 34.6 g/dL (32-36); Mean Corpuscular Volume 91.5 fL (80-100); Mean Platelet Volume 9.9 fL (7.4-10.4); Monocytes # (auto) 0.46 K/uL (0.11-0.59); Monocytes % (auto) 11.4 %; Neutrophils # (auto) 2.97 K/uL (1.4-6.5); Neutrophils % (auto) 73.5 %; Platelet Count 228 K/uL (130-400); RDW Coefficient of Variation 12.9 % (11.5-14.5); RDW Standard Deviation 43.4 fL (36.4-46.3); Red Blood Count 4.26 M/uL (4.7-6.1); White Blood Count 4.04 K/uL (4.8-10.8)
[2021-02-07 07:12] LABS: BUN Creatinine Ratio 24.7 (10-20); C Reactive Protein 4.74 mg/dl (0-0.29); Calcium 8.2 mg/dl (8.5-10.1); Creatinine Clr Calc Pharmacy 153.4 ml/min; Est GFR (African American) 125.9 ml/min; Est GFR (Non-African American) 108.6 ml/min; Potassium 3.7 mmol/L (3.5-5.1)
[2021-02-07] MEDS: dexAMETHasone 6 MG in SYRINGE 0 ML IV SCH (09:10)
[2021-02-07] MEDS: cefTRIAXone SODIUM 2,000 MG in DEXTROSE 5% 50 ML IV SCH (09:10)
[2021-02-07] MEDS: guaiFENesin 600 MG TABCR PO SCH ×2 (09:11→21:07)
--- NOTE | 2021-02-07 10:12 | Electrocardiogram Report ---
Test Reason : Blood Pressure : / mmHG Vent. Rate : 070 BPM Atrial Rate : 070 BPM P-R Int : 162 ms QRS Dur : 094 ms QT Int : 404 ms P-R-T Axes : 081 082 083 degrees QTc Int : 436 ms Normal sinus rhythm Normal ECG When compared with ECG of 06-MAR-2020 10:11, T wave amplitude has decreased in Inferior leads Confirmed by Ivan Phillips ([id number]) on 02/07/2021 10:12:17 AM Referred By: REFERRED SELF Confirmed By:Ivan Phillips
[2021-02-07] MEDS: ENOXAPARIN INJ 40 MG/0.4 ML SYR SQ SCH (15:28)
[2021-02-07] MEDS ORDERED: POLYETHYLENE (MIRALAX) 17 GM PACK PO PRN (19:16)
--- NOTE | 2021-02-07 19:22 | Hospitalist Progress Note ---
Date of Service February 07, 2021 Assessment & Plan (1) Pneumonia due to COVID-19 virus: Plan: Seems most likely this is all ongoing Covid/viral pneumonia/immune mediated inflammation, but really hard to rule out secondary bacterial overgrowthboth based on the time he is into this illness, as well as his imaging/lab findings (particularly the rather reassuring and precipitous drop in CRP)continue antibiotics in the form of Zithromax and Rocephin -Dexamethasone given that he is probably into the phase of Covid where his immune system mediated inflammation is causing as much problems as the virus itself. Fortunately oxygen requirement is improving -With oxygen requirement staying at the low end, and improving, has not been a candidate (nor require) monoclonal antibodies such as baricitinib -Too far into the course of illness to benefit from spike protein monoclonal antibodies, or remdesivir -Continue supportive care -OMT as above (2) Secondary bacterial pneumonia: Plan: See above (3) Hypoxia: Plan: See above, fortunately improving (4) Acute hyponatremia: Plan: Suspect all reflective of acute (what sounds to be fairly severe) malnutritionI suspect his acute malnutrition and acute hyponatremia are driving a lot of his symptoms of restlessness and feelings of doomgiven that from a breathing standpoint, and he is still suffering from Covid pneumonia, it is likely safer to keep him on the dry side of euvolemicrather than further saline, have replaced sodium with salt tabs, and encourage p.o. intakesodium improved. Dietitian assistance for p.o. intake/acute malnutrition as well. (5) Mild obstructive sleep apnea: Plan: CPAP at bedtime as needed (6) CPAP (continuous positive airway pressure) dependence: Plan: See above (7) DVT prophylaxis: Plan: Lovenox (8) Discharge planning issues: Plan: With hypoxia improving, and electrolytes normalizing, he overall appears stable for discharge or close to it. He was very overwhelmed with this, noting that he just does not feel up to it yet, and also noting a few times that whenever he was first admitted he believes he was told he would be here a week. I tried to explain his overall stability, explained that unfortunately it would likely take a month or more for him to really feel good again, but that things appear safe for him to be home. Given that he was absolutely overwhelmed and anxious at the prospect of going home, we discussed looking at home in the near future rather than today, hopefully tomorrow. Increase activityCase management request PT/OT eval and treat. Admission and Anticipated Discharge Date Admission Date: February 06, 2021 Subjective Feels about the same. No significant shortness of breath, just very weak and malaise and no appetite. Discussed the possibility of going home, he was very overwhelmed with this thought. Noted "when they admitted me they told me I would probably be here a week. I am probably too weak to cook for myself, I do not really have food at home right now, I am just too weak." Review of Systems Review of Systems: All systems reviewed & are unremarkable except as noted in HPI & below Physical Exam Physical Exam: In general he is awake and alert pleasant no distress. HEENT normocephalic atraumatic mucous membranes moist. Breathing unlabored lungs show base right rales no accessory muscles no rhonchi no wheezes good effort. Right- sided thoracic paraspinals high tone, tender, decreased range of motioninhibitory pressure/direct myofascial with some improvement. Neuro shows cranial nerves II through XII be grossly intact gross motor and sensory are intact. Skin without rashes, pallor, icterus. Results & Data Results & Data ([facility]) Vital Signs (Past 12 Hours) Vital Signs Temp Pulse Pulse Resp BP Pulse Ox 02/07/21 15:59 97.9 F 57 L 18 116/73 93 02/07/21 15:00 59 L 02/07/21 11:55 98.4 F 63 18 116/80 90 02/07/21 07:57 63 02/07/21 07:30 98.6 F 66 18 101/61 92 PG Care Time/CCT Total # of Minutes Spent Total Time Spent with Patient: Total time spent is greater than 50% in coordination of care (as documented) at patient's floor/unit and/or counseling patient: Coding Level of Care Code 65492 Subseq Hosp Care Lvl 3 Diagnoses Pneumonia due to COVID-19 virus U07.1; J12.82 Secondary bacterial pneumonia J15.9 Hypoxia R09.02 Acute hyponatremia E87.1 Mild obstructive sleep apnea G47.33 CPAP (continuous positive airway pressure) dependence Z99.89 DVT prophylaxis Z29.9 Discharge planning issues Z02.9
[2021-02-07] MEDS: MELATONIN 3 MG TAB PO PRN (21:07)
[2021-02-08] MEDS: AZITHROMYCIN 500 MG in DEXTROSE 5% 250 ML IV SCH (05:52)
[2021-02-08 06:53] LABS: Basophils # (auto) 0.01 K/uL (0-0.2); Basophils % (auto) 0.2 %; Hematocrit (blood only) 38.3 % (42-52); Hemoglobin 13.2 g/dL (14.0-18.0); Immature Granulocytes # (auto) 0.05 K/uL (0.00-0.02); Lymphocytes # (auto) 0.72 K/uL (1.2-3.4); Lymphocytes % (auto) 13.8 %; Mean Corpuscular Hgb Conc 34.5 g/dL (32-36); Mean Platelet Volume 9.4 fL (7.4-10.4); Monocytes # (auto) 0.43 K/uL (0.11-0.59); Monocytes % (auto) 8.2 %; Neutrophils # (auto) 4.01 K/uL (1.4-6.5); Neutrophils % (auto) 76.8 %; Platelet Count 272 K/uL (130-400); RDW Standard Deviation 44.7 fL (36.4-46.3); Red Blood Count 4.12 M/uL (4.7-6.1); White Blood Count 5.22 K/uL (4.8-10.8)
[2021-02-08] MEDS: cefTRIAXone SODIUM 2,000 MG in DEXTROSE 5% 50 ML IV SCH (09:16)
[2021-02-08] MEDS: guaiFENesin SUGAR FREE 100 MG/5 ML UDC PO PRN ×2 (09:16→16:17)
[2021-02-08] MEDS: ENOXAPARIN INJ 40 MG/0.4 ML SYR SQ SCH (09:17)
[2021-02-08] MEDS: dexAMETHasone 6 MG in SYRINGE 0 ML IV SCH (09:17)
[2021-02-08] MEDS: guaiFENesin 600 MG TABCR PO SCH ×2 (09:18→21:08)
--- NOTE | 2021-02-08 18:57 | Hospitalist Progress Note ---
Date of Service February 08, 2021 Assessment & Plan (1) Pneumonia due to COVID-19 virus: Plan: cont dexamethasone, day #3 of such. also on IV abx - day #3 of rocephin/zithromax. stable in RA. 2-step ambulatory O2 test tomorrow. dimer was high at admission - cont lovenox DVT proph; would use xarelto 10mg daily x 30 days at discharge continue pulmonary toilet continue ambulation did well with PT/OT he is about 14 days into his illness - hopefully the worse is behind him due to where he is in his illness he was not Remdesivir candidate crp was elevated at admission (10) was coming down to <5 repeat am procal neg this admission (2) Secondary bacterial pneumonia: Plan: See above (3) Hypoxia: Plan: acute hypoxic resp failure 2nd to #1 - resolved stable in RA now (4) Acute hyponatremia: Plan: was in the low 120s now resolved 135 on 02/07/21 repeat BMP am (5) Mild obstructive sleep apnea: Plan: CPAP at bedtime as needed (6) DVT prophylaxis: Plan: Lovenox (7) Discharge planning issues: Plan: PT/OT evals done -clear for home updated pt's daughter by phone this evening Plan: hopefully home next 1-2 days Admission and Anticipated Discharge Date Admission Date: February 06, 2021 Subjective no issues except he is sleeping poorly even despite the melatonin feels anxious about being here, but also at the thought of going home, stating "I hate to take up a bed here as a security blanket" he continues to cough some sputum production has been in room air now for 36 hours eating fair weakness persists Review of Systems Review of Systems: gen - no fevers or chills; weakness cv - no chest pain pulm - cough, congestion, sputum, mild BOWEN but no dyspnea at rest GI - no abd pain or nausea Physical Exam Physical Exam: gen - thin, looks chronically unwell mouth - MMM neck - no JVD heart - RRR, s1 s2, no murmur lungs - b/l basilar rales, no wheeze abd - soft NT ND BS+ ext - no edema, pulses 2+ b/l Results & Data Results & Data ([facility]) Vital Signs (Past 12 Hours) Vital Signs Temp Pulse Pulse Resp BP Pulse Ox 02/08/21 17:07 60 02/08/21 14:49 36.4 C L 61 18 93/56 L 95 02/08/21 12:12 36.7 C 50 L 18 100/64 92 02/08/21 08:15 50 L 02/08/21 08:02 36.8 C 55 L 18 114/73 91 PG Care Time/CCT Total # of Minutes Spent Total Time Spent with Patient: Total time spent is greater than 50% in coordination of care (as documented) at patient's floor/unit and/or counseling patient: Coding Level of Care Code 64201 Subseq Hosp Care Lvl 3 Diagnoses Pneumonia due to COVID-19 virus U07.1; J12.82 Secondary bacterial pneumonia J15.9 Hypoxia R09.02 Acute hyponatremia E87.1 Mild obstructive sleep apnea G47.33 DVT prophylaxis Z29.9 Discharge planning issues Z02.9
[2021-02-08] MEDS ORDERED: ALPRAZolam 0.25 MG TABLET PO SCH (21:00)
[2021-02-09] MEDS: AZITHROMYCIN 500 MG in DEXTROSE 5% 250 ML IV SCH (05:59)
[2021-02-09] MEDS: ENOXAPARIN INJ 40 MG/0.4 ML SYR SQ SCH (08:16)
[2021-02-09] MEDS: dexAMETHasone 6 MG in SYRINGE 0 ML IV SCH (08:16)
[2021-02-09] MEDS: guaiFENesin 600 MG TABCR PO SCH (08:17)
[2021-02-09 09:20] LABS: BUN Creatinine Ratio 21.6 (10-20); C Reactive Protein 1.63 mg/dl (0-0.29); Calcium 8.2 mg/dl (8.5-10.1); Creatinine Clr Calc Pharmacy 135.2 ml/min; Est GFR (African American) 121.4 ml/min; Est GFR (Non-African American) 104.8 ml/min; Potassium 3.8 mmol/L (3.5-5.1)
[2021-02-09] MEDS: cefTRIAXone SODIUM 2,000 MG in DEXTROSE 5% 50 ML IV SCH (09:53)
--- NOTE | 2021-02-09 14:21 | Discharge Summary ---
Date of Service date of admission - February 06, 2021 date of discharge - February 09, 2021 Admission HPI Per Admitting Provider The patient is a 65-year-old male with a past medical history including eustachian tube dysfunction, somatic dysfunction of rib and lower extremities, sleep disturbances, peripheral neuropathy, mild BLAYNE, CPAP dependence, right inguinal hernia, and situational anxiety. He presents with symptoms as noted above. Significant laboratories: Hemoglobin 13.7, hematocrit 37.9, sodium 125, potassium 3.5, chloride 89, bicarb 28, AST 46, D-dimer 1430, albumin 2.5. Patient was COVID-19 positive on 01/28, but not repeated in the ED this evening. Pulse ox was 88% on room air Chest x-ray/CT angio PE protocol showed multifocal pneumonia, left significantly greater than right. From the ED patient received dexamethasone 10 mg IV and 2 L normal saline. Principal Diagnosis COVID-19 pneumonia Discharge Exam gen - thin, NAD mouth - MMM neck - no JVD heart - RRR, s1 s2, no murmur lungs - b/l basilar rales, no wheeze, no increased work of breathing abd - soft NT ND BS+ ext - no edema, pulses 2+ b/l psych - a/o x 3, anxious Discharge Data Allergies Allergy/AdvReac Type Severity Reaction Status Date / Time No Known Allergies Allergy Verified 02/12/21 11:15 Consultations PT, OT Procedures Performed 2-step ambulatory O2 test - no need for O2 at rest, requires 2 L NC O2 with activity Ordered Studies Chest X-Ray 02/05/21 23:54 XR chest 1V portable CLINICAL HISTORY: weakness, sob. Positive Covid COMPARISON STUDY: 03/06/2020 TECHNIQUE: 1 view of the chest FINDINGS: Single frontal view of the chest demonstrates the heart size to be at the upper limits of normal to mildly enlarged. Patchy interstitial and alveolar opacities are now present bilaterally. The findings are most characteristic of a viral type pneumonitis. Covid 19 pneumonia should be excluded. Additionally, there is hyperinflation of the lungs with attenuation of the pulmonary vasculature peripherally characteristic of underlying chronic obstructive pulmonary disease. There is no evidence for pleural effusion. There is no evidence for vascular congestion. There is no acute osseous pathology. IMPRESSION: Patchy interstitial and alveolar opacities are now present bilaterally characteristic of a viral type pneumonitis and probable early Covid 19 pneumonia. Evidence for underlying COPD. ACT 112: Negative or not required by law. Electronically signed by: Shaheen Frausto M.D. 02/06/2021 6:58 AM Chest CTA 02/06/21 01:27 CT angio chest PE protocol CLINICAL HISTORY: Shortness of breath. Elevated d-dimer. Evaluate for pulmonary embolus. COMPARISON STUDY: Portable chest from 02/06/2021 CT DOSE: 337.55 mGy.cm TECHNIQUE: CT Angio of the chest was performed.followed by image post processing with coronal, and sagittal MIP reformats. Contrast Volume: Optiray 320, 120 ml FINDINGS: Vasculature: There is homogeneous perfusion of the pulmonary vasculature bilaterally. No intraluminal filling defects or evidence for pulmonary embolus is seen. Airway: The airway is clear. No endobronchial lesion is identified. Lungs: Extensive groundglass opacities are present throughout both lungs characteristic of a viral type pneumonitis and Covid 19 pneumonia. Additionally, there is bibasilar atelectasis. No confluent alveolar opacities or bronchograms are seen. No significant emphysematous changes are seen as suggested radiographically. Pleura: There are very small bilateral pleural effusions. There is no evidence for pneumothorax. Mediastinum: There is no evidence for pathologic adenopathy. The heart size is mildly enlarged. The thoracic aorta is within normal limits. There is very minimal pericardial thickening. Upper abdomen:The adrenal glands are normal bilaterally. Incidental note is made of a left renal cyst. Osseous structures: There is no acute osseous pathology. Impression: 1. No CTA evidence for pulmonary embolus. 2. Extensive groundglass opacities are present throughout both lungs characteristic of a viral type pneumonitis and Covid 19 pneumonia. 3. There is also evidence for bibasilar atelectasis and very small bilateral pleural effusions. ACT 112: Negative or not required by law. Electronically signed by: Shaheen Frausto M.D. 02/06/2021 7:22 AM Hospital Course (1) Pneumonia due to COVID-19 virus: The patient had an uneventful hospital stay marked by clinical stability. He required NC O2 for about 24 hours following admission and then it was successfully weaned off. He remained stable in room air for 2+ days prior to discharge. He was treated with IV dexamethasone daily, having received 4 doses while here. He received 3 days of IV rocephin/zithromax both of which were discontinued - procal was negative, and clinical picture was most consistent with viral pneumonia from his COVID with low risk for bacterial superinfection. He was not a Remdesivir candidate as he presented at about the 10th day of his illness. 2-step ambulatory O2 test showed he needed 2 Liters of NC O2 with activity only. Portable O2 was provided to him on day of discharge. While hospitalized he received SC lovenox. I recommended low-dose Xarelto 10mg daily x 30 days post-discharge for VTE prophylaxis. CRP was elevated at admission 10.8, decreasing to 1.6 at discharge. He will complete 6 more days of oral dexamethasone post-discharge. On 02/09/21 the patient asked for discharge home. He was advised to f/u with his PCP within 5 days of discharge for recheck. (2) Secondary bacterial pneumonia: There was some concern for such early in his stay. However - given his clinical stability, normal procalcitonin, and response to steroids - I felt that a bacterial superinfection was unlikely. Antibiotics were discontinued after 3 days of IV therapy. (3) Hypoxia: acute hypoxic resp failure 2nd to #1 - resolved stable in RA following just 24 hours of requiring NC O2 see #1 above (4) Acute hyponatremia: Admission Na = 127. Discharge Na = 136. 2nd to volume depletion/dehydration in the setting of #1 above. (5) Mild obstructive sleep apnea: does not use CPAP (6) DVT prophylaxis: Lovenox during the stay, then Xarelto 10mg daily x 30 days after discharge. (7) Discharge planning issues: PT/OT evals completed prior to discharge - cleared for home (8) Abnormal chest CT: There was minimal thickening or fluid of the pericardium on CT chest at time of admission. During the stay he never had symptoms of acute pericarditis. EKG was normal. He had no rub on physical exam. He should have a f/u CT of the chest in about 3 months to ensure radiographic clearing of his lung infiltrates and the pericardial abnormality. Constipation - can use combination of OTC miralax and/or senna post- discharge for such. Total Time Total Time Spent Total Time Spent (In Minutes): 45 Discharge Plan Discharge Items Patient Disposition: Home - Self-Care Reason For Visit: COVID-19 Pneumonia Discharge Diagnosis: COVID-19 pneumonia - improving. Constipation. Activity: As commented below Activity Comment: gradually increase your activities over the next 1-2 weeks Bathing: No limitations Bathing Comment: as tolerated Sexual Activity: Wait until after follow-up appointment Exercise/Sports: Wait until after follow-up appointment Driving/Machine Use: Resume 3 days after discharge Non-emergency contact: Primary Care Provider Call non-emergency contact if: you have any medication questions, your symptoms worsen and you have a fever Follow-up/Referrals: [facility] [Provider Group] (we will set you up with a lung specialist through [facility] to check on your recovery - appointment will be in a few weeks ) Jd Evans, DO [Primary Care Provider] - (see within 1 week) Diet: Regular Addtl Attending Provider Instructions: Mr Evans, You were hospitalized for COVID-19 pneumonia. Your CAT scan at time of admission showed bilateral pneumonia from the COVID infection. You required oxygen for about 24 hours, then it was able to be weaned. You have been off oxygen for 2+ days while sitting/resting/sleeping. Your COVID pneumonia was treated with steroids and other supportive treatments. A walking oxygen test on day of discharge showed that you need 2 liters of oxygen with activity/ambulation. You do not need to use oxygen when sitting, resting, sleeping, etc. Be sure to take the oxygen with you when you leave your home. Recommendations - 1. Dexamethasone steroid - 6mg once daily with food for 6 more days. First dose tomorrow on 02/10/21. This is for your COVID pneumonia. 2. Xarelto low-dose blood thinner - for reasons not entirely understood COVID infection increases the risk of blood clots in your legs and lungs, especially during the recovery period. The Xarelto will be to prevent you from getting blood clots. Take 10mg once daily. Start tomorrow 02/10/21. You will take this for 30 days. We are giving you a coupon so that it will be free. Be sure to give this to the pharmacy at time of pick-up. 3. Pantoprazole - 40mg once daily for 30 days. This is an acid merchant patroller to help prevent stomach irritation from the steroids and Xarelto. 4. For cough - may use [id number] mucinex up to 1200mg twice daily as needed/desired for cough. 5. For constipation - may use [id number]-mln-ornjkzn miralax (glycolax) once or twice daily. Some people take miralax with senakot as well. Both are effective. Be sure to stay well-hydrated at home as this will help your constipation. 6. You are in the recovery phase of your illness. Recovery can take a week or sometimes several weeks. It is a slow process but each passing day you will gradually feel better, regain your strength, etc. It is very important to listen to your body - rest when needed, don't over do it (example - if we get a big snowstorm next week please ask someone else to shovel !), focus on good nutrition/hydration, etc. 7. Oxygen - 2 liters with activity/ambulation. Most folks can come off the oxygen over a few weeks. 8. Check your oxygen levels with a finger "pulse oximeter." You can purchase one at [employer], [employer], etc. Check your oxygen levels 2-3 times each day. If you are consistently over 90% your levels are adequate. If you are consistently less than 90% please seek medical attention. 9. Be sure to wear a mask any time you leave your home. 10. You are likely not contagious to others at this time. With that said I would recommend you spend the next 3-4 days at home resting and recovering before venturing back out into the community. 11. Continue your breathing exercises - use your incentive spirometry for another 1-2 weeks. Rest on your tummy (see "proning" handout) when able. 12. Obtain a flu shot in 3-4 weeks. Follow-up - see separate section Return to [facility] if - * you have fevers over 100 degrees * you have worsening shortness of breath * you have chest pains * you have bleeding from any location * your oxygen levels are less than 90% with your pulse oximeter device * any other concerns Happy holidays, and continue to feel better ! Dr Truong Addtl Processing Technician Provider Instructions: Blood thinner medication Instructions: We are prescribing XARELTO to you to take for 30 days. This is a low-dose blood thinner to help prevent blood clots in your legs and lungs during the recovery period.. * You should take the Xarelto medication exactly as directed (10mg once daily, start 02/10/21). * Never skip a dose. * Never take a double dose. If you miss a dose, take it as soon as you remember. Call your Primary Care doctor if you experience any of the following: * Swelling or Pain in your leg * Sudden, continuous pain deep in a muscle * Pain that worsens when you are active or when you stand still for a long time * Chest Pain * Sudden Shortness of Breath * Rapid or pounding heart beat * Fainting * Dizziness * Cough with blood or bloody sputum * Sweating more than normal * Bruises * Heavy or uncontrolled bleeding * Blood in your urine, stool or vomit * Black or tarry stools * Heavy nose bleeding Caring for Your Self at Home: * Avoid sitting, standing or lying down for long periods without moving your legs and feet * When traveling by car, stop to get out and move around at least once every 3 hours * On long airplane, train or bus rides, get up and move around when possible * If you can't get up, wiggle your toes and tighten your calves to keep your blood moving Pending Studies at Discharge: No Stand-Alone Forms: [facility], Smoking Cessation Medications and DC Order Prescriptions: New pantoprazole 40 mg tablet,delayed release (DR/EC) 40 mg PO QAM 30 Days Qty: 30 RF: 0 (DME) Oxygen Home Liters Per Minute See Rx Instructions .ROUTE .MEDSUPPLY Qty: 1 RF: 0 No Action dexamethasone 6 mg tablet 6 mg PO QAM RF: 0 Xarelto 10 mg tablet 10 mg PO QAM RF: 0 Discharge Orders: Discharge Order (Routine); Ordered 02/09/21 Ordered By: Jorge Yu/Other Patient Handouts: Caring for Someone Who Has COVID-19, Disinfecting Your Home of COVID-19, 2019-nCoV, COVID-19 Home Care, Proning COVID-19, COVID-19 and the Flu What's ... Admission Data Admit Date/Time: 02/06/21 03:31 Attending Provider: Jorge Truong Admit Provider: Forrest Arzola Primary Care Provider: Jd Evans Other Providers: Forrest Arzola Other Interventions: Discharge Summary Assessment (RN) Last Done: 02/09/21 14:07 Coding Level of Care Code D/C DAY MANAGEMENT >30 MINS Diagnoses Pneumonia due to COVID-19 virus U07.1; J12.82 Secondary bacterial pneumonia J15.9 Hypoxia R09.02 Acute hyponatremia E87.1 Mild obstructive sleep apnea G47.33 DVT prophylaxis Z29.9 Discharge planning issues Z02.[address] R93.89
== END 2021-02-09 16:02 | disposition home or self-care (01) ==
LOC: ED 23:34 → EDINP 02-06 03:31 → INTOOBSV 02-06 03:31 → SUATTDRO 02-06 03:31 → EDINP 02-06 04:52 → 2W 02-06 17:44

== ENCOUNTER 2021-02-12 09:43 | Observation (INO) ==
[2021-02-12] MEDS ORDERED: SODIUM CHLORIDE 0.9% 1000ML 500 ML IV ONE ×3 (10:02→13:37)
[2021-02-12 10:58] LABS: Basophils # (auto) 0.01 K/uL (0-0.2); Basophils % (auto) 0.1 %; Eosinophils # (auto) 0.02 K/uL (0-0.5); Eosinophils % (auto) 0.3 %; Hematocrit (blood only) 41.3 % (42-52); Hemoglobin 14.1 g/dL (14.0-18.0); Immature Granulocytes # (auto) 0.21 K/uL (0.00-0.02); Immature Granulocytes % (auto) 2.7 %; Lymphocytes # (auto) 0.48 K/uL (1.2-3.4); Lymphocytes % (auto) 6.2 %; Mean Corpuscular Hgb Conc 34.1 g/dL (32-36); Mean Corpuscular Volume 93.9 fL (80-100); Mean Platelet Volume 9.1 fL (7.4-10.4); Monocytes # (auto) 0.63 K/uL (0.11-0.59); Monocytes % (auto) 8.2 %; Neutrophils # (auto) 6.37 K/uL (1.4-6.5); Neutrophils % (auto) 82.5 %; Platelet Count 300 K/uL (130-400); RDW Coefficient of Variation 12.8 % (11.5-14.5); RDW Standard Deviation 44.3 fL (36.4-46.3); White Blood Count 7.72 K/uL (4.8-10.8)
--- NOTE | 2021-02-12 11:04 | XRay Report ---
XR chest 1V portable HISTORY: SEPSIS COMPARISON: Chest 02/06/2021. FINDINGS: Patchy multifocal bilateral airspace opacities within the mid to lower lung zones are again noted. These appear to have slightly improved. No pneumothorax. No pleural effusions. The heart az ins top normal in size. IMPRESSION: Slight improvement in the patchy multifocal airspace opacities consistent with a viral pneumonia. ACT 112: Negative or not required by law. Electronically signed by: Jose Soto M.D. 02/12/2021 11:03 AM
[2021-02-12] MEDS: SODIUM CHLORIDE 0.9% 1000ML 1,000 ML IV SCH ×2 (11:05→17:30)
[2021-02-12 11:08] LABS: INR 1.1 (0.9-1.1); Prothrombin Time 11.1 Seconds (9.0-12.0)
[2021-02-12 11:24] LABS: Albumin Level 2.5 gm/dl (3.4-5.0); BUN Creatinine Ratio 17.8 (10-20); Blood Urea Nitrogen 11 mg/dl (7-18); Calcium 8.5 mg/dl (8.5-10.1); Carbon Dioxide 29 mmol/L (21-32); Chloride 104 mmol/L (98-107); Creatinine Clr Calc Pharmacy 125.3 ml/min; Est GFR (African American) 117.4 ml/min; Est GFR (Non-African American) 101.3 ml/min; Glucose 104 mg/dl (70-99); Magnesium 2.4 mg/dl (1.8-2.4); Potassium 4.4 mmol/L (3.5-5.1); Sodium 136 mmol/L (136-145)
[2021-02-12 11:29] LABS: Alanine Aminotransferase 43 (12-78); Albumin Globulin Ratio 0.7 (0.9-2); Alkaline Phosphatase 80 U/L (45-117); Aspartate Aminotransferase 14 U/L (15-37); Bilirubin,Total 0.5 mg/dl (0.2-1); Globulin 3.4 gm/dl (2.5-4.0); Total Protein 5.9 gm/dl (6.4-8.2); Troponin I < 0.015 ng/ml (0-0.045)
[2021-02-12] MEDS ORDERED: ONDANSETRON INJ 2 MG/ML 2 ML VIAL IV STA (12:11)
--- NOTE | 2021-02-12 12:12 | Emergency Department Note ---
Impression & Plan Weakness, High serum lactate, Acute hypotension ED Provider Note INFORMANT: Patient ED PROVIDER(S): Hemant Baires MD CHIEF COMPLAINT: Weakness PLAN: Disposition: Admitted Condition: Good Outpatient prescription management: none Referral: None MEDICAL DECISION MAKING: Patient presented back to emergency department after admission for Covid pneumonia. He was doing well by his report yesterday and today felt very poorly. On presentation he was mildly hypotensive. When he initially was treated in the hospital he was noted to have some mild hypotension but that improved. He was started on fluids. He was reassessed. Patient had an unremarkable CBC and chemistry panel. Troponin was negative. ECG did not show anything acute. The patient's serum lactate was elevated. A additional fluid bolus was given. Procalcitonin was noted to be normal. The patient's chest x-ray did reveal fin dings consistent with pneumonia. Given his hypotension and lactate a CT scan of the chest was performed to rule out thromboembolic disease as well as other problems. This showed improvement of his Covid pneumonia. No thromboembolic disease was noted. On reassessment the patient was feeling somewhat better. He also received Zofran for his nausea. He did not have any abdominal pain at all today and had a benign abdominal examination. Additional fluids were given. Repeat lactate was still elevated. It was somewhat improved. Given his blood pressures ranging from 85-95 systolic further management in the hospital was felt to be appropriate for observation and hydration. I discussed this with the patient and family. Patient was very much in agreement and did not want to be discharged. [facility] Patient was evaluated in the ER for further management. Triage Nursing notes reviewed and agree them. Vital Signs: reviewed and remarkable for hypotension Differential diagnosis: Infection, dehydration, metabolic abnormality, hypo/hyperglycemia, electrolyte disturbance, anemia, hypoxia, cardiac sources, intracerebral event, toxicologic, neurologic, as well as other pathologies. Diagnostics interpreted by me: ECG: Twelve-lead ECG reveals normal sinus rhythm at 65 bpm. Poor R wave progression. No ST elevation or depression. No PACs or PVCs. Normal axis. Cardiac Monitoring: Cardiac monitoring ordered by me: The patient was placed on continuous cardiac monitoring and observed. It revealed a normal sinus rhythm at 66 beats per minute without ectopy or evidence of dysrhythmia. Imaging studies: Chest x-ray shows some mild infiltrate bilaterally. CT PE study negative for thromboembolic disease. Improving pneumonia present. I refer you to the EMR for further details. HPI: The patient is a 65 year old male who presents to the Emergency Room with complaints of weakness. This started over the last few days and is worsening today. The patient also notes the following associated symptoms, shortness of breath. The patient has found no relieving factors. Current pain is rated as 0/10. Patient also notes some nausea. Patient was recently admitted for COVID- 19 pneumonia. He was also treated for secondary bacterial pneumonia. Since discharge 2 days ago he has been feeling worse. Pt denies LOC, headache, fevers, chills, diaphoresis, visual changes, neck pain, chest pain, vomiting, abdominal pain, back pain, melena, hematochezia, urinary symptoms, numbness, lymphadenopathy, rash, or other complaints. ROS: See above HPI for pertinent positives & negatives. A total of 10 systems reviewed and were otherwise negative. PAST MEDICAL HISTORY:See Below , COVID-19, pneumonia PAST SURGICAL HISTORY:See Below, FAMILY HISTORY:See Below SOCIAL HISTORY:See Below, non-smoker HOME MEDICATIONS:See Below ALLERGIES:See Below VITALS:See Below PHYSICAL EXAMINATION: GENERAL: Awake, alert, uncomfortable-appearing, in no distress HENT: Normocephalic, atraumatic. EYES: Normal conjunctiva. Sclera non-icteric. PERRLA. EOMI NECK: Inspection normal. Non-tender. Supple. No nuchal rigidity. FROM. No masses. RESPIRATORY: Clear to auscultation. No wheezes. No rales. Normal respiratory effort. CARDIAC: Normal rate. Normal rhythm. No murmurs. No rubs. Extremities warm and well perfused. Pulses equal. No JVD. GI: Soft, non-distended. No tenderness to palpation. No rebound or guarding. No masses. RECTAL: Deferred. MUSCULOSKELETAL: Atraumatic. Chest examination reveals no tenderness. The back i s symmetrical on inspection without obvious abnormality. There is no CVA tenderness to palpation. No joint edema. LOWER EXTREMITIES: Calves are equal size bilaterally and non-tender. No edema. No discoloration. NEURO: Normal sensorium. Generally weak but no focal no sensory or motor deficits noted. SKIN: No rash or jaundice noted. Hemant Baires MD Past Med/Surg History Medical History Arthritis Emphysema lung suggested per 03/06/20 preop CXR Hepatitis A 1979 History of cardiac murmur as a child no recent echo/no murmur at PAT visit 03/06/20 Neuropathy Scoliosis Situational anxiety Sleep apnea unable to tolerate CPAP Surgical History H/O left knee surgery 2020 Dr. Landry, partial medial and lateral meniscectomy H/O right inguinal hernia repair Right Laparoscopic Recurrent Inguinal Hernia Repair with Mesh: 01/11/20: Grade view 2/3, MAC# 3.0, ETT 8.0 at [facility] History of cataract surgery History of colonoscopy History of hernia surgery Left inguinal (1987) History of laparoscopy of undescended testicle History of non-cataract eye surgery History of surgery Incision of external thrombosed hemorrhoid History of tonsillectomy and adenoidectomy S/P ankle fusion S/P hernia repair Open right inguinal hernia repair (09/2016) S/P left knee arthroscopy PHILLIP Santo (2004) Family History Sister Breast cancer Cancer Father Prostate cancer Family history of cardiac disorder Hypertension Cancer Mother Family history of cardiac disorder Diabetes Hypertension Cancer Other SIDS (sudden syndrome) Denies family history of Colon cancer Ovarian cancer Crohn's disease Myocardial infarction Ulcerative colitis Social History Smoking Status: Never smoker Tobacco Type: Cigarettes Age Started Using Tobacco: 12; Age Quit Using Tobacco: 22; packs per day: 0.5; Second Hand Exposure: No; Hx Alcohol Use: Yes Alcohol type: wine Alcohol Intake Frequency Comment: 2 glasses of wine a day Hx Substance Use: No Preferred Language: Vietnamese Communication Ability: Effective Visual Impairment: No Limitations Hearing Ability: Normal Exerciser Horse Required: No Beliefs That Will Affect Care: None marital status: / Current Living Situation: Family Current Living Situation Comment: lives with twin sons current occupational status: retired current occupation: used to work in carpentry How many Children do You have: 2 Feels Safe at Home: Yes Childhood Exposure to Second-Hand Smoke: No Diet Comment: radha lawson Dental Care, Regularly: Yes Physical Activity Frequency: Daily Physical Activity Frequency Comment: gardening, housework, yardwork Seatbelt Use: always Sunscreen Use: No Assistive Devices: None Allergies Allergies Allergy/AdvReac Type Severity Reaction Status Date / Time No Known Allergies Allergy Verified 02/12/21 11:15 Home Meds Home Medications Medication Instructions Recorded Confirmed dexamethasone 6 mg tablet 6 mg PO QAM 02/12/21 02/12/21 rivaroxaban 10 mg tablet (Xarelto) 10 mg PO QAM 02/12/21 02/12/21 Previous Rx's Medication Instructions Recorded Oxygen Home #1 ea 02/09/21 pantoprazole 40 mg tablet,delayed 40 mg PO QAM 30 Days #30 tab 02/09/21 release Results & Data (ED) Vital Signs Vital Signs - 24 hr 02/12/21 09:58 02/12/21 10:31 02/12/21 11:59 Temperature 36.6 C Temperature Source Temporal Artery Scan Pulse Rate 94 H 65 Pulse Rate [Apical] 60 Pulse Rhythm Regular Pulse Rhythm [Apical] Regular Respiratory Rate 19 14 16 Respiratory Effort / Characteristics Non-Labored Spontaneous Respiratory Depth Normal Respiratory Pattern Regular Blood Pressure 93/65 L Blood Pressure [Right Arm] 86/60 L Blood Pressure Mean 74 Blood Pressure Mean [Right Arm] 68 Blood Pressure Position [Right Arm] Lying Pulse Oximetry 96 92 97 Oxygen Delivery Method Room Air Room Air Room Air Sepsis Recent Fever Within 48 Hours No Sepsis New/Unexplained Change in Mental Status N/A Sepsis Action Taken by Nursing No Action Required 02/12/21 12:29 02/12/21 13:41 Temperature Temperature Source Pulse Rate Pulse Rate [Apical] 61 66 Pulse Rhythm Pulse Rhythm [Apical] Regular Regular Respiratory Rate 16 16 Respiratory Effort / Characteristics Non-Labored Spontaneous Respiratory Depth Normal Respiratory Pattern Regular Blood Pressure Blood Pressure [Right Arm] 96/59 L 102/67 Blood Pressure Mean Blood Pressure Mean [Right Arm] 71 78 Blood Pressure Position [Right Arm] Lying Pulse Oximetry 96 94 Oxygen Delivery Method Room Air Room Air Sepsis Recent Fever Within 48 Hours Sepsis New/Unexplained Change in Mental Status Sepsis Action Taken by Nursing Laboratory Data Result diagrams: 02/12/21 10:43 02/12/21 10:43 Lab Results 02/12/21 02/12/21 02/12/21 Range/Units 10:43 10:43 10:43 WBC 7.72 (4.8-10.8) K/uL RBC 4.40 L (4.7-6.1) M/uL Hgb 14.1 (14.0-18.0) g/dL Hct 41.3 L (42-52) % MCV 93.9 (80-100) fL MCH 32.0 (25-34) pg MCHC 34.1 (32-36) g/dL RDW Std Deviation 44.3 (36.4-46.3) fL RDW Coeff of Heather 12.8 (11.5-14.5) % Plt Count 300 (130-400) K/uL MPV 9.1 (7.4-10.4) fL Immature Gran % (Auto) 2.7 % Neut % (Auto) 82.5 % Lymph % (Auto) 6.2 % Williams % (Auto) 8.2 % Eos % (Auto) 0.3 % Baso % (Auto) 0.1 % Neut # (Auto) 6.37 (1.4-6.5) K/uL Lymph # (Auto) 0.48 L (1.2-3.4) K/uL Williams # (Auto) 0.63 H (0.11-0.59) K/uL Eos # (Auto) 0.02 (0-0.5) K/uL Baso # (Auto) 0.01 (0-0.2) K/uL Immature Gran # (Auto) 0.21 H (0.00-0.02) K/uL PT 11.1 (9.0-12.0) Seconds INR 1.1 (0.9-1.1) APTT 26.0 (21.0-31.0) Seconds PTT Ratio 1.0 Sodium 136 (136-145) mmol/L Potassium 4.4 (3.5-5.1) mmol/L Chloride 104 (98-107) mmol/L Carbon Dioxide 29 (21-32) mmol/L Anion Gap 3.0 (3-11) BUN 11 (7-18) mg/dl Creatinine 0.64 (0.6-1.4) mg/dl Est Cr Clr Drug Dosing 125.3 ml/min Est GFR ( Amer) 117.4 ml/min Est GFR (Non-Af Amer) 101.3 ml/min BUN/Creatinine Ratio 17.8 (10-20) Glucose 104 H (70-99) mg/dl Lactate (0.4-2.0) mmol/L Calcium 8.5 (8.5-10.1) mg/dl Magnesium 2.4 (1.8-2.4) mg/dl Total Bilirubin 0.5 (0.2-1) mg/dl AST 14 L (15-37) U/L ALT 43 (12-78) Alkaline Phosphatase 80 (45-117) U/L Troponin I < 0.015 (0-0.045) ng/ml Total Protein 5.9 L (6.4-8.2) gm/dl Albumin 2.5 L (3.4-5.0) gm/dl Globulin 3.4 (2.5-4.0) gm/dl Albumin/Globulin Ratio 0.7 L (0.9-2) Procalcitonin (0-0.5) ng/ml Urine Color Urine Appearance (Clear) Urine pH (4.5-7.5) Ur Specific Putnam (1.000-1.030) Urine Protein (Negative) Urine Glucose (UA) (Negative) Urine Ketones (Negative) Urine Blood (Negative) Urine Nitrite (Negative) Urine Bilirubin (Negative) Urine Urobilinogen (Negative) Ur Leukocyte Esterase (Negative) 02/12/21 02/12/21 02/12/21 Range/Units 10:43 10:44 12:25 WBC (4.8-10.8) K/uL RBC (4.7-6.1) M/uL Hgb (14.0-18.0) g/dL Hct (42-52) % MCV (80-100) fL MCH (25-34) pg MCHC (32-36) g/dL RDW Std Deviation (36.4-46.3) fL RDW Coeff of Heather (11.5-14.5) % Plt Count (130-400) K/uL MPV (7.4-10.4) fL Immature Gran % (Auto) % Neut % (Auto) % Lymph % (Auto) % Williams % (Auto) % Eos % (Auto) % Baso % (Auto) % Neut # (Auto) (1.4-6.5) K/uL Lymph # (Auto) (1.2-3.4) K/uL Williams # (Auto) (0.11-0.59) K/uL Eos # (Auto) (0-0.5) K/uL Baso # (Auto) (0-0.2) K/uL Immature Gran # (Auto) (0.00-0.02) K/uL PT (9.0-12.0) Seconds INR (0.9-1.1) APTT (21.0-31.0) Seconds PTT Ratio Sodium (136-145) mmol/L Potassium (3.5-5.1) mmol/L Chloride (98-107) mmol/L Carbon Dioxide (21-32) mmol/L Anion Gap (3-11) BUN (7-18) mg/dl Creatinine (0.6-1.4) mg/dl Est Cr Clr Drug Dosing ml/min Est GFR ( Amer) ml/min Est GFR (Non-Af Amer) ml/min BUN/Creatinine Ratio (10-20) Glucose (70-99) mg/dl Lactate 2.9 H* (0.4-2.0) mmol/L Calcium (8.5-10.1) mg/dl Magnesium (1.8-2.4) mg/dl Total Bilirubin (0.2-1) mg/dl AST (15-37) U/L ALT (12-78) Alkaline Phosphatase (45-117) U/L Troponin I (0-0.045) ng/ml Total Protein (6.4-8.2) gm/dl Albumin (3.4-5.0) gm/dl Globulin (2.5-4.0) gm/dl Albumin/Globulin Ratio (0.9-2) Procalcitonin < 0.05 (0-0.5) ng/ml Urine Color Yellow Urine Appearance Clear (Clear) Urine pH 7.5 (4.5-7.5) Ur Specific Putnam 1.004 (1.000-1.030) Urine Protein Negative (Negative) Urine Glucose (UA) Negative (Negative) Urine Ketones Negative (Negative) Urine Blood Negative (Negative) Urine Nitrite Negative (Negative) Urine Bilirubin Negative (Negative) Urine Urobilinogen Negative (Negative) Ur Leukocyte Esterase Negative (Negative) 02/12/21 Range/Units 12:34 WBC (4.8-10.8) K/uL RBC (4.7-6.1) M/uL Hgb (14.0-18.0) g/dL Hct (42-52) % MCV (80-100) fL MCH (25-34) pg MCHC (32-36) g/dL RDW Std Deviation (36.4-46.3) fL RDW Coeff of Heather (11.5-14.5) % Plt Count (130-400) K/uL MPV (7.4-10.4) fL Immature Gran % (Auto) % Neut % (Auto) % Lymph % (Auto) % Williams % (Auto) % Eos % (Auto) % Baso % (Auto) % Neut # (Auto) (1.4-6.5) K/uL Lymph # (Auto) (1.2-3.4) K/uL Williams # (Auto) (0.11-0.59) K/uL Eos # (Auto) (0-0.5) K/uL Baso # (Auto) (0-0.2) K/uL Immature Gran # (Auto) (0.00-0.02) K/uL PT (9.0-12.0) Seconds INR (0.9-1.1) APTT (21.0-31.0) Seconds PTT Ratio Sodium (136-145) mmol/L Potassium (3.5-5.1) mmol/L Chloride (98-107) mmol/L Carbon Dioxide (21-32) mmol/L Anion Gap (3-11) BUN (7-18) mg/dl Creatinine (0.6-1.4) mg/dl Est Cr Clr Drug Dosing ml/min Est GFR ( Amer) ml/min Est GFR (Non-Af Amer) ml/min BUN/Creatinine Ratio (10-20) Glucose (70-99) mg/dl Lactate 2.3 H* (0.4-2.0) mmol/L Calcium (8.5-10.1) mg/dl Magnesium (1.8-2.4) mg/dl Total Bilirubin (0.2-1) mg/dl AST (15-37) U/L ALT (12-78) Alkaline Phosphatase (45-117) U/L Troponin I (0-0.045) ng/ml Total Protein (6.4-8.2) gm/dl Albumin (3.4-5.0) gm/dl Globulin (2.5-4.0) gm/dl Albumin/Globulin Ratio (0.9-2) Procalcitonin (0-0.5) ng/ml Urine Color Urine Appearance (Clear) Urine pH (4.5-7.5) Ur Specific Putnam (1.000-1.030) Urine Protein (Negative) Urine Glucose (UA) (Negative) Urine Ketones (Negative) Urine Blood (Negative) Urine Nitrite (Negative) Urine Bilirubin (Negative) Urine Urobilinogen (Negative) Ur Leukocyte Esterase (Negative) Administered Medications Sodium Chloride (Nss 1000ml) 1,000 mls @ 150 mls/hr IV .Q6H40M WING Stop: 03/14/21 10:14 Last Admin: 02/12/21 11:05 Dose: 150 mls/hr Documented by: [id number] Discontinued Medications Sodium Chloride (Nss 1000ml) 500 mls @ 999 mls/hr IV .Q31M ONE Stop: 02/12/21 10:32 Last Infusion: 02/12/21 11:00 Dose: 0 mls/hr Documented by: [id number] Admin: 02/12/21 10:30 Dose: 999 mls/hr Documented by: [id number] Sodium Chloride (Nss 1000ml) 500 mls @ 999 mls/hr IV .Q31M ONE Stop: 02/12/21 12:38 Last Infusion: 02/12/21 13:09 Dose: 0 mls/hr Documented by: [id number] Admin: 02/12/21 12:26 Dose: 999 mls/hr Documented by: [id number] Sodium Chloride (Nss 1000ml) 500 mls @ 999 mls/hr IV .Q31M ONE Stop: 02/12/21 14:07 Last Infusion: 02/12/21 14:11 Dose: 0 mls/hr Documented by: [id number] Admin: 02/12/21 13:43 Dose: 999 mls/hr Documented by: [id number] Ioversol (Optiray 320 125ml) 117 ml IV ONCE ONE Stop: 02/12/21 12:43 Last Admin: 02/12/21 12:46 Dose: 117 ml Documented by: [id number] Ondansetron HCl (Ondansetron Inj 2 Mg/Ml 2 Ml Vial) 4 mg IV NOW STA Stop: 02/12/21 12:12 Last Admin: 02/12/21 12:26 Dose: 4 mg Documented by: [id number] Imaging Data Radiologist's Impression: Chest X-Ray 02/12/21 10:02 XR chest 1V portable HISTORY: SEPSIS COMPARISON: Chest 02/06/2021. FINDINGS: Patchy multifocal bilateral airspace opacities within the mid to lower lung zones are again noted. These appear to have slightly improved. No pneumothorax. No pleural effusions. The heart remains top normal in size. IMPRESSION: Slight improvement in the patchy multifocal airspace opacities consistent with a viral pneumonia. ACT 112: Negative or not required by law. Electronically signed by: Jose Soto M.D. 02/12/2021 11:03 AM Chest CTA 02/12/21 11:56 CT angio chest PE protocol CLINICAL HISTORY: Covid pneumonia with continued shortness of breath. Evaluate for pulmonary embolus COMPARISON STUDY: 02/06/2021 and portable chest radiograph from 02/12/2021 CT DOSE: 314.16 mGy.cm TECHNIQUE: CT Angio of the chest was performed.followed by image post processing with coronal, and sagittal MIP reformats. Contrast Volume: Optiray 320, 117 ml FINDINGS: Vasculature: There is homogeneous perfusion of the pulmonary vasculature bilaterally. No intraluminal filling defects or evidence for pulmonary embolus is seen. Airway: The airway is clear. No endobronchial lesion is identified. Lungs: Compared to the previous examination, there has been slight improvement of extensive groundglass opacities throughout both lungs. There is again bibasilar atelectasis. Pleura: There has been interval decrease in size and small bilateral pleural effusions. There is no evidence for pneumothorax. Mediastinum: There is no evidence for pathologic adenopathy. The heart size is within normal limits. The thoracic aorta is within normal limits. There is no evidence for pericardial effusion. Upper abdomen:The adrenal glands are normal bilaterally. Osseous structures: There is no acute osseous pathology. Impression: 1. No CTA evidence for pulmonary embolus. 2. Compared to the previous CT and as seen radiographically, there has been slight improvement in bilateral groundglass opacities again characteristic of a viral type pneumonitis and Covid pneumonia. 3. There is again mild bibasilar atelectasis. 4. There is interval decrease in small bilateral pleural effusions. ACT 112: Negative or not required by law. Electronically signed by: Shaheen Frausto M.D. 02/12/2021 12:57 PM Discharge Plan Visit Data Chief Complaint: Illness Stated Complaint: ILLNESS - DISCHARGED THURSDAY ED Provider: Hemant Baires Discharge Problem: Weakness, High serum lactate, Acute hypotension Forms Stand Alone Forms: My [facility] Prescriptions Prescriptions: No Action dexamethasone 6 mg tablet 6 mg PO QAM RF: 0 Xarelto 10 mg tablet 10 mg PO QAM RF: 0 pantoprazole 40 mg tablet,delayed release (DR/EC) 40 mg PO QAM 30 Days Qty: 30 RF: 0 (DME) Oxygen Home Liters Per Minute See Rx Instructions .ROUTE .MEDSUPPLY Qty: 1 RF: 0 Referrals Referrals: Jd Evans DO [Primary Care Provider] -
[2021-02-12] MEDS ORDERED: OPTIRAY 320 125ml IV ONE (12:42)
[2021-02-12 12:44] LABS: Appearance Urine Clear (Clear); Bilirubin Urine Negative (Negative); Blood Urine Negative (Negative); Color Urine Yellow; Glucose Urine UA Negative (Negative); Ketones Urine Negative (Negative); Leukocyte Esterase Urine Negative (Negative); Nitrite Urine Negative (Negative); Protein Urine Negative (Negative); Specific Gravity Urine 1.004 (1.000-1.030); Urobilinogen Urine Negative (Negative); pH Urine 7.5 (4.5-7.5)
--- NOTE | 2021-02-12 12:59 | CT Scan Report ---
CT angio chest PE protocol CLINICAL HISTORY: Covid pneumonia with continued shortness of breath. Evaluate for pulmonary embolus COMPARISON STUDY: 02/06/2021 and portable chest radiograph from 02/12/2021 CT DOSE: 314.16 mGy.cm TECHNIQUE: CT Angio of the chest was performed.followed by image post processing with coronal, and s agittal MIP reformats. Contrast Volume: Optiray 320, 117 ml FINDINGS: Vasculature: There is homogeneous perfusion of the pulmonary vasculature bilaterally. No intraluminal filling defects or evidence for pulmonary embolus is seen. Airway: The airway is clear. No endobronchial lesion is identified. Lungs: Compared to the previous examination, there has been slight improvement of extensive groundgla ss opacities throughout both lungs. There is again bibasilar atelectasis. Pleura: There has been interval decrease in size and small bilateral pleural effusions. There is no evidence for pneumothorax. Mediastinum: There is no evidence for pathologic adenopathy. The heart size is within normal limits. The thoracic aorta is within normal limits. There is no evidence for pericardial effusion. Upper abdomen:The adrenal glands are normal bilaterally. Osseous structures: There is no acute osseous pathology. Impression: 1. No CTA evidence for pulmonary embolus. 2. Compared to the previous CT and as seen radiographically, there has been slight improvement in nelly ateral groundglass opacities again characteristic of a viral type pneumonitis and Covid pneumonia. 3. There is again mild bibasilar atelectasis. 4. There is interval decrease in small bilateral pleural effusions. ACT 112: Negative or not required by law. Electronically signed by: Shaheen Frausto M.D. 02/12/2021 12:57 PM
--- NOTE | 2021-02-12 13:45 | History & Physical Report ---
Date of Service February 12, 2021 Assessment & Plan (1) Weakness: Plan: Blair is a 65-year-old male recently admitted for Covid pneumonia and discharged 02/09/2021 who presents with generalized weakness and fatigue worsening over the last 3 days. During his recent admission he was treated for COVID-19 pneumonia and treated for secondary bacterial pneumonia. On arrival to the ER he was noted to have an elevated lactate which minimally improved with NSS 500x2 bolus es. CTA obtained which showed no evidence of PE, improving bilateral groundglass opacities characteristic of viral pneumonitis/Covid, and an interval decrease in small bilateral pleural effusions. Weakness, fatigue 2/2 suspected volume depletion with elevated lactate Lactate elevated to 2.9, downtrending with NSS 500 cc x 2 bolus Hypotensive to 80s/60s on admission, improving to 102/67 with fluids above No abdominal pain, tolerating p.o. at time of bedside assessment, low suspicion for bowel ischemia CTA without evidence of PE, improving GGO consistent with improving Covid Patient feels 51% at his baseline, but that he is not able to ambulate well enough to be home alone and continues to feel wiped out BC pending, no urinary symptoms Patient does endorse that he had an episode of shortness of breath with chest pain which resolved for 5 minutes this morning, troponin negative, TTE pending and troponin trended x2 Procalcitonin negative No leukocytosis No gross electrolyte abnormalities Creatinine at baseline (2) COVID-19: Plan: Discharge from the hospital 02/09/2021 Initial Covid symptoms approximately 01/25-01/26 Was discharged to complete 6 additional days of oral dexamethasone, has 3 days remaining Given high CRP was recommended to complete 30 days of Xarelto 10 mg daily Continue Xarelto for DVT prophylaxis at this time Passed a two-step, currently on room air 94%. Titrate to greater than 90% Plan: DVT prophylaxis: DOAC as above Diet: Regular Disposition: Medical/surgical CODE STATUS: Full code History of Present Illness Chief Complaint: Fatigue, weakness Primary Care Provider: Jd Evans DO Blair is a 65-year-old male recently admitted for Covid pneumonia and discharged 02/09/2021 who presents with generalized weakness and fatigue worsening over the last 3 days. During his recent admission he was treated for COVID-19 pneumonia and treated for secondary bacterial pneumonia. On arrival to the ER he was noted to have an elevated lactate which minimally improved with NSS 500x2 boluses. CTA obtained which showed no evidence of PE, improving bilateral groundglass opacities characteristic of viral pneumonitis/Covid, and an interval decrease in small bilateral pleural effusions. Blair is seen in the ER. [place] yesterday was actually improving and doign well Today 'felt like crap and like I wasn't getting better all over again.' +lightheadedness, +dizziness, and 'some brain fog with fatigue.' Endorses no shortness of breath at bedside assessment, was short of breath this morning after waking up. Endorses some discomfort in his chest which lasted less than 5 minutes which co- occurred with his shortness of breath. Ritu was in the L mid chest. No pain into the neck or shoulder. Denies history of heart problems. Endorses heart disease ?[place] in his mother who passed at 76 from unrelated cancer, father at age 84 also with cancer complications. Not sure the age of his parents when the developed heart problems. Feels 51% of his normal and 'yucky' at time of bedside assessment, Denies belly pain, reports he has a good appetite this morning and is tolerating lunch well. Has been taking dexamethasone, took for a few days Medical History: Reviewed Medications: Reviewed. Took medications today. Surgical History: Reviewed Allergies: Reviewed Social History: No tobacco use. Rare alcohol use. No rec drug use. Code Status: Surrogate Era Flores. Full Code. Allergies Allergy/AdvReac Type Severity Reaction Status Date / Time No Known Allergies Allergy Verified 02/12/21 11:15 Home Medications Medication Instructions Recorded Confirmed Type Oxygen Home #1 ea 02/09/21 Rx pantoprazole 40 mg tablet,delayed 40 mg PO QAM 30 Days #30 tab 02/09/21 02/12/21 Rx release dexamethasone 6 mg tablet 6 mg PO QAM 02/12/21 02/12/21 History rivaroxaban 10 mg tablet (Xarelto) 10 mg PO QAM 02/12/21 02/12/21 History Past Med/Surg History Medical History Arthritis Emphysema lung suggested per 03/06/20 preop CXR Hepatitis A 1978 History of cardiac murmur as a child no recent echo/no murmur at PAT visit 03/06/20 Neuropathy Scoliosis Situational anxiety Sleep apnea unable to tolerate CPAP Surgical History H/O left knee surgery 2020 Dr. Landry, partial medial and lateral meniscectomy H/O right inguinal hernia repair Right Laparoscopic Recurrent Inguinal Hernia Repair with Mesh: 01/11/20: Gra de view 2/3, MAC# 3.0, ETT 8.[address] [facility] History of cataract surgery History of colonoscopy History of hernia surgery Left inguinal (1987) History of laparoscopy of undescended testicle History of non-cataract eye surgery History of surgery Incision of external thrombosed hemorrhoid History of tonsillectomy and adenoidectomy S/P ankle fusion S/P hernia repair Open right inguinal hernia repair (09/2016) S/P left knee arthroscopy PHILLIP Santo (2004) Family History Sister Breast cancer Cancer Father Prostate cancer Family history of cardiac disorder Hypertension Cancer Mother Family history of cardiac disorder Diabetes Hypertension Cancer Other SIDS (sudden infant syndrome) Denies family history of Colon cancer Ovarian cancer Crohn's disease Myocardial infarction Ulcerative colitis Social History Smoking Status: Never smoker Tobacco Type: Cigarettes Age Started Using Tobacco: 12; Age Quit Using Tobacco: 22; packs per day: 0.5; Second Hand Exposure: No; Hx Alcohol Use: Yes Alcohol type: wine Alcohol Intake Frequency Comment: 2 gl asses of wine a day Hx Substance Use: No Preferred Language: Syriac Communication Ability: Effective Visual Impairment: No Limitations Hearing Ability: Normal Member [employer] Required: No Beliefs That Will Affect Care: None marital status: / Current Living Situation: Family Current Living Situation Comment: lives with twin sons current occupational status: retired current occupation: used to work in carpentry How many Children do You have: 2 Feels Safe at Home: Yes Childhood Exposure to Second-Hand Smoke: No Diet Comment: radha lawson Dental Care, Regularly: Yes Physical Activity Frequency: Daily Physical Activity Frequency Comment: gardening, housework, yardwork Seatbelt Use: always Sunscreen Use: No Assistive Devices: None Review of Systems Review of Systems: All systems reviewed & are unremarkable except as noted in HPI & below Physical Exam Physical Exam: General: A&Ox3. NAD. Cooperative. HEENT: Atraumatic, normocephalic. Visual acuity/hearing intact. PERLAA. MM tacky. Pulm: CTAB A&P. -wheezes, -rales, -rhonchi. Symmetrical chest rise. No increase work of breathing. No respiratory distress. Cardiac: RRR, -mrg. Radial pulses intact and symmetrical. JVD not present. Abdominal: Nontender, nondistended, soft. BS present. Ext: Moving all extremities equally. Sensation intact to soft touch in hands and feet. NO pedal/LE edema. Results & Data Results & Data ([facility]) Vital Signs (Past 12 Hours) Vital Signs Temp Pulse Pulse Resp BP BP Pulse Ox 02/12/21 12:29 61 16 96/59 L 96 02/12/21 11:59 60 16 86/60 L 97 02/12/21 10:31 65 14 92 02/12/21 09:58 36.6 C 94 H 19 93/65 L 96 PG Care Time/CCT Total # of Minutes Spent Total Time Spent with Patient: Total time spent is greater than 50% in coordination of care (as documented) at patient's floor/unit and/or counseling patient: Coding Level of Care Code INT OBSERVATION CARE 50M LVL 2 Diagnoses Weakness R53.1 COVID-19 U07.1
[2021-02-12] MEDS ORDERED: ACETAMINOPHEN 325 MG TAB PO PRN (16:29)
--- NOTE | 2021-02-12 17:54 | Electrocardiogram Report ---
Test Reason : Blood Pressure : / mmHG Vent. Rate : 065 BPM Atrial Rate : 065 BPM P-R Int : 158 ms QRS Dur : 090 ms QT Int : 432 ms P-R-T Axes : 077 067 079 degrees QTc Int : 449 ms Normal sinus rhythm When compared with ECG of 06-FEB-2021 00:19, No significant change was found Confirmed by Calixto Billings ([id number]) on 02/12/2021 5:53:31 PM Referred By: Confirmed By:Joe Billings
[2021-02-13] MEDS ORDERED: MELATONIN 3 MG TAB PO PRN (02:13)
[2021-02-13 04:37] LABS: Basophils # (auto) 0.01 K/uL (0-0.2); Basophils % (auto) 0.2 %; Eosinophils # (auto) 0.03 K/uL (0-0.5); Eosinophils % (auto) 0.6 %; Hematocrit (blood only) 38.9 % (42-52); Hemoglobin 13.4 g/dL (14.0-18.0); Immature Granulocytes % (auto) 1.9 %; Lymphocytes # (auto) 0.83 K/uL (1.2-3.4); Lymphocytes % (auto) 15.9 %; Mean Corpuscular Hemoglobin 32.5 pg (25-34); Mean Corpuscular Hgb Conc 34.4 g/dL (32-36); Mean Corpuscular Volume 94.4 fL (80-100); Monocytes % (auto) 11.5 %; Neutrophils # (auto) 3.66 K/uL (1.4-6.5); Neutrophils % (auto) 69.9 %; Platelet Count 292 K/uL (130-400); RDW Standard Deviation 44.9 fL (36.4-46.3); Red Blood Count 4.12 M/uL (4.7-6.1); White Blood Count 5.23 K/uL (4.8-10.8)
[2021-02-13 04:54] LABS: BUN Creatinine Ratio 23.2 (10-20); Calcium 8.3 mg/dl (8.5-10.1); Creatinine Clr Calc Pharmacy 143.2 ml/min; Est GFR (African American) 124.1 ml/min; Potassium 4.2 mmol/L (3.5-5.1)
[2021-02-13] MEDS ORDERED: TEMAZEPAM 15 MG CAPSULE PO PRN (04:57)
[2021-02-13] MEDS ORDERED: dexAMETHasone 4 MG TAB PO SCH (09:00)
[2021-02-13] MEDS ORDERED: PANTOprazole 40 MG TAB PO SCH (09:00)
[2021-02-13] MEDS ORDERED: RIVAROXABAN 10 MG TABLET PO SCH (09:00)
--- NOTE | 2021-02-13 11:07 | XCELERA ---
[id number]
[2021-02-13] MEDS ORDERED: busPIRone 5 MG TAB PO PRN (11:30)
--- NOTE | 2021-02-13 19:24 | Discharge Summary ---
Date of Service February 13, 2021 Admission HPI Per Admitting Provider Blair is a 65-year-old male recently admitted for Covid pneumonia and discharged 02/09/2021 who presents with generalized weakness and fatigue worsening over the last 3 days. During his recent admission he was treated for COVID-19 pneumonia and treated for secondary bacterial pneumonia. On arrival to the ER he was noted to have an elevated lactate which minimally improved with NSS 500x2 boluses. CTA obtained which showed no evidence of PE, improving bilateral groundglass opacities characteristic of viral pneumonitis/Covid, and an interval decrease in small bilateral pleural effusions. Blair is seen in the ER. [place] yesterday was actually improving and doign well Today 'felt like crap and like I wasn't getting better all over again.' +lightheadedness, +dizziness, and 'some brain fog with fatigue.' Endorses no shortness of breath at bedside assessment, was short of breath this morning after waking up. Endorses some discomfort in his chest which lasted less than 5 minutes which co- occurred with his shortness of breath. Ritu was in the L mid chest. No pain into the neck or shoulder. Denies history of heart problems. Endorses heart disease ?[place] in his mother who passed at 76 from unrelated cancer, father at age 84 also with cancer complications. Not sure the age of his parents when the developed heart problems. Feels 51% of his normal and 'yucky' at time of bedside assessment, Denies belly pain, reports he has a good appetite this morning and is tolerating lunch well. Has been taking dexamethasone, took for a few days Medical History: Reviewed Medications: Reviewed. Took medications today. Surgical History: Reviewed Allergies: Reviewed Social History: No tobacco use. Rare alcohol use. No rec drug use. Code Status: Surrogate Era Flores. Full Code. Principal Diagnosis weakness, recovering from covid Discharge Exam aaox3 pleasant nad heent nc at [facility]mm. cardio reg lungs cta b/l no r/r/w good effort skin no rashes no pallor or icterus. neuro cn2-12 grossly intact gross motor and sensory intact gait steady and stable. mental status intact although mildly anxious. Discharge Data Allergies Allergy/AdvReac Type Severity Reaction Status Date / Time No Known Allergies Allergy Verified 02/12/21 11:15 Consultations 02/12/21 13:37 ED Decision to Admit Stat Ordered Studies 02/12/21 11:56 CT angio chest PE protocol Stat Hospital Course (1) Weakness: probably was dehydrated -- poor PO intake/nausea - all of which have resolved. notes appetite is really good now and eating well. walking around well. suspect residual weakness will slowly improve - just will take time. CT improved echo reassuring labs reassuring appetite better safe/stable for home suspect some of his situation revolves around anxiety with having had covid (he readily admits this - notes that 2 people he knows who got sick at the same time have , also notes that he's generally well and not used to feeling sick which probably compounds anxiety about situation) -->miralax, zofran prn for GI symptoms (hopefully miralax will be short lived, wouldn't be surprised if he doesn't need zofran at all) -->buspar TID prn anxiety (again suspect will be short lived) -->restoril prn insomnia (short term - max 14 days to avoid physical dependency) --offered reassurance, extensive explanations of his course with covid, when/how people usually decompensate, why the other two would likely have and he has done well. he was quite appreciative of this (2) COVID-19: -see above. doing well. he wondered about the medications -- given how well he is doing, how well inflammatory markers trended down, how much improved he is, and that feeling "less like a patient" may help with his anxiety and help him acclimate better for home - ok to stop xarelto as long as staying very mobile safe for home, PCP f/u Total Time Total Time Spent Total Time Spent (In Minutes): >30 Discharge Plan Discharge Items Patient Disposition: Home - Self-Care Reason For Visit: WEAKNESS, SHORTNESS OF BREATH, ?CHEST PAIN/SOB Discharge Diagnosis: recovering from covid Activity: Resume your previous activity Non-emergency contact: Primary Care Provider Call non-emergency contact if: you have any medication questions and your symptoms worsen Follow-up/Referrals: Jd Evans, DO [Primary Care Provider] - Diet: Regular Addtl Attending Provider Instructions: Recovering from Covid -As we discussed, everything really appears to be improving. -Your vital signs look better, your oxygen numbers look essentially at the low end of normal (and I expect them to continue to improve from there) and even your low blood pressure yesterday was more "slightly below normal" than seriously low (and was probably from being a bit dehydrated) -Your CT scan shows improvement in the viral pneumonia from Cov[place] we discussed it often takes a month or more for pneumonias to go away on imaging -Your echocardiogram was for all intents and purposes normal (the only abnormalities at all were mild dilation of the aortic rootbut to clarify there is no aneurysm seen on CT, and generally CT would be more accurate at looking at this), and there was a tiny bit of fluid around the heart which is commonly seen in lots of viral situations. What is important though, is that your heart function is normal, the valves are normal, and there is nothing worrisome at all -Your blood counts are essentially at the low end of normal (nothing that would be symptomatic at all, would just have your family doc recheck in about a month) and your electrolytes were normal. During your last admission your inflammatory markers came down very nicely -All of this is to say that it looks like you are recovering quite nicely. The problem is just that when you are used to feeling well, recovering from something like Covid (that can take a month or so) can feel like you are never going to get better. Rest assured that you are showing nice improvement, it will just take a little while until you feel totally normal again. -As we discussed, at this point the "contagion of fear" is probably a bigger threat to your wellbeing then "the contagion of Covid"to that end take reassurance and the fact that you are a very young, healthy 65, and that once we start to see people improve from things like Covid you are far enough removed from the first day of illness that any sort of backsliding or sudden worsening would almost be unheard of. If you were to get sick again, it would almost certainly be something separate and unrelated. -You can use the MiraLAX (polyethylene glycol) daily to up to twice a day to keep your bowels moving, and then back off as you need it less -Zofran (ondansetron) is a tablet you can dissolve under your tongue up to every 6 hours as needed for nausea -The BuSpar (buspirone) can be used up to 3 times a day as needed to help calm some of the sensation of anxietyhowever, I am thinking he will probably not need this for very long -The temazepam (Restoril) can be taken at bedtime to assist with sleep. Like we discussed, it is a medicine that is fairly safe to use for the short-term, but after a few weeks to a month your body can start to get used to it and create a physical dependencyto that and we will have a maximum of 2 weeks of use. If you are still needing anything to assist with sleep after that, I would suggest melatonin, or diphenhydramine -Since he did have some pretty significant nausea prior to this admission, I would have you stick with the Protonix (pantoprazole) for another week or 2, and then probably be able to stop it -Given how well you are doing, I think it is pretty reasonable to stop the blood thinner (Xarelto) as long as you are getting up and around, and moving a good bit throughout the day. Pending Studies at Discharge: No Stand-Alone Forms: My [facility] [address], Smoking Cessation Medications and DC Order Prescriptions: New polyethylene glycol 3350 [Miralax] 17 gram/dose powder 17 g PO DAILY Qty: 119 RF: 0 temazepam [Restoril] 15 mg capsule 15 mg PO HS PRN (Reason: sleep) Qty: 14 RF: 0 ondansetron 4 mg tablet,disintegrating 4 mg PO Q6H PRN (Reason: nausea and vomiting) Qty: 30 RF: 0 buspirone 5 mg tablet 5 mg PO TID PRN (Reason: anxiety) Qty: 30 RF: 0 Continued dexamethasone 6 mg tablet 6 mg PO QAM RF: 0 pantoprazole 40 mg tablet,delayed release (DR/EC) 40 mg PO QAM 30 Days Qty: 30 RF: 0 (DME) Oxygen Home Liters Per Minute See Rx Instructions .ROUTE .MEDSUPPLY Qty: 1 RF: 0 Discontinued Xarelto 10 mg tablet 10 mg PO QAM RF: 0 Discharge Orders: Discharge Order (Routine); Ordered 02/13/21 Ordered By: Nasim Cervantes Admission Data Admit Date/Time: 02/12/21 14:11 Attending Provider: Nasim Cervantes Admit Provider: Cali Leon Primary Care Provider: Jd Evans Other Providers: Cali Leon Other Interventions: Discharge Summary Assessment (RN) Last Done: 02/13/21 16:59 Coding Level of Care Code 21724 OBS Care - Discharge Diagnoses Weakness R53.1 COVID-19 U07.1
== END 2021-02-13 19:42 | disposition home or self-care (01) ==
LOC: EDINP 09:43 → ED 09:43 → SUATTDRO 14:11 → EDINP 02-13 16:37

== ENCOUNTER 2023-02-02 12:33 | Observation (INO) ==
--- NOTE | 2023-01-28 08:12 | Anesthesiology Consultation ---
Date of Service January 28, 2023 History Surgery Operation Date: 02/02/23 13:30 Proposed Procedures p Colonoscopy Dr. Toussaint - Roberto Toussaint MD Height/Weight Height: 6 ft 4 in Weight: 88.451 kg Allergies Allergy/AdvReac Type Severity Reaction Status Date / Time No Known Allergies Allergy Verified 02/02/23 13:23 Medications Home Medications Medication Instructions Recorded Confirmed Last Taken Wheeled Walker #1 ea 01/05/23 01/12/23 Unknown Cataplex B Vitamin 1 dose PO QAM 01/26/23 02/02/23 Unknown Drenamin 1 dose PO QAM 01/26/23 02/02/23 01/31/23 [place] Powder 1 dose PO QAM 01/26/23 02/02/23 01/30/23 buspirone 5 mg tablet 5 mg PO UD PRN anxiety 01/26/23 02/02/23 Unknown peg 3350-electrolytes 236 240 ml PO ONCE #4,000 mL 01/30/23 02/02/23 02/02/23 gram-22.74 gram-6.74 gram-5.86 gram solution (Golytely) glucosamine sulfate 500 mg tablet 500 mg PO QAM 02/02/23 02/02/23 01/31/23 (Glucosamine) Past Medical History Medical History (Updated 02/02/23 @ 13:36 by Roberto Toussaint MD) Situational anxiety hx Low energy experiences since having covid and pneumonia in 2020. Ongoing. No change in baseline. Family history of colonic polyps History of colon polyps Chronic cough noticed a frequent cough, ongoing since having covid in 2020./no change in baseline. History of COVID-03 Feb 2021, Pneumonia followed. Sleep apnea hx device/made sleep worse/no current device. Osteoarthritis of left knee Pneumonia due to COVID-19 virus hx Emphysema lung suggested per 03/06/20 preop CXR pt not sure if dx. Hepatitis A 1978 Scoliosis Neuropathy History of cardiac murmur as a child no recent echo/no murmur at PAT visit 03/06/20 Arthritis Past Family History Family History Sister Breast cancer Cancer Father Prostate cancer Family history of cardiac disorder Hypertension Cancer Mother Family history of cardiac disorder Diabetes Hypertension Cancer Other SIDS (sudden infant syndrome) Denies family history of Colon cancer Ovarian cancer Crohn's disease Myocardial infarction Ulcerative colitis Past Surgical History Surgical History History of arthroscopy of right knee 2004 H/O left knee surgery 2020 Dr. Landry, partial medial and lateral meniscectomy H/O right inguinal hernia repair Right Laparoscopic Recurrent Inguinal Hernia Repair with Mesh: 01/11/20: Grade view 2/3, MAC# 3.0, ETT 8.0 at [facility] History of non-cataract eye surgery hx retina detachment both eyes. History of colonoscopy History of hernia surgery Left inguinal (1987) History of tonsillectomy and adenoidectomy History of laparoscopy of undescended testicle History of surgery Incision of external thrombosed hemorrhoid History of cataract surgery both eyes. S/P ankle fusion 1971, left , hardware and since removed. S/P hernia repair Open right inguinal hernia repair (09/2016) Social History Smoking Status: Former smoker tobacco type: cigarettes Do You Dip or Chew Tobacco: No Smoking End Date: 50 yr ago. Hx Alcohol Use: Yes Alcohol type: wine alcohol intake frequency: a few times a week Hx Substance Use: No substance use type: does not use Physical Exam Vital Signs Last Vital Signs Temp 36.8 C 02/02/23 13:40 Pulse 71 02/02/23 13:40 Resp 16 02/02/23 13:40 BP 123/77 02/02/23 13:40 Pulse Ox 96 02/02/23 13:40 O2 Del Method Room Air 02/02/23 13:40 Testing Electrocardiogram Date: 02/12/21 Findings: + NSR @ (65) Chest X-Ray Date: 04/17/22 hyperinflation without acute process
[2023-02-02] MEDS ORDERED: PROPOFOL IV EMULSION 10 MG/ML 20 ML VIAL IV ONE (13:34)
[2023-02-02] MEDS ORDERED: fentaNYL citrate PF 100 MCG/2 ML VIAL ONE (13:34)
[2023-02-02] MEDS ORDERED: MIDAZOLAM HCL 1 MG/ML 2ML VIAL ONE (13:34)
--- NOTE | 2023-02-02 13:36 | History & Physical Report ---
Date of Service February 02, 2023 Assessment & Plan (1) History of colon polyps: Plan proceed with colonoscopy. risks/benefits and procedure discussed with patient, who agrees to proceed History of Present Illness Primary Care Provider: Marcelo Deras DO 67 yo male here for colonoscopy. Allergies Allergy/AdvReac Type Severity Reaction Status Date / Time No Known Allergies Allergy Verified 02/02/23 13:23 Home Medications Medication Instructions Recorded Confirmed Type Wheeled Walker #1 ea 01/05/23 01/12/23 Rx Cataplex B Vitamin 1 dose PO QAM 01/26/23 02/02/23 History Drenamin 1 dose PO QAM 01/26/23 02/02/23 History Moringa Wilber Powder 1 dose PO QAM 01/26/23 02/02/23 History buspirone 5 mg tablet 5 mg PO UD PRN anxiety 01/26/23 02/02/23 History peg 3350-electrolytes 236 240 ml PO ONCE #4,000 mL 01/30/23 02/02/23 Rx gram-22.74 gram-6.74 gram-5.86 gram solution (Golytely) glucosamine sulfate 500 mg tablet 500 mg PO QAM 02/02/23 02/02/23 History (Glucosamine) Past Med/Surg History Medical History (Updated 02/02/23 @ 13:36 by Roberto Toussaint MD) Situational anxiety hx Low energy experiences since having covid and pneumonia in 2020. Ongoing. No change in baseline. Family history of colonic polyps History of colon polyps Chronic cough noticed a frequent cough, ongoing since having covid in 2020./no change in baseline. History of COVID-03 Feb 2021, Pneumonia followed. Sleep apnea hx device/made sleep worse/no current device. Osteoarthritis of left knee Pneumonia due to COVID-19 virus hx Emphysema lung suggested per 03/06/20 preop CXR pt not sure if dx. Hepatitis A 1978 Scoliosis Neuropathy History of cardiac murmur as a child no recent echo/no murmur at PAT visit 03/06/20 Arthritis Surgical History History of arthroscopy of right knee 2004 H/O left knee surgery 2020 Dr. Landry, partial medial and lateral meniscectomy H/O right inguinal hernia repair Right Laparoscopic Recurrent Inguinal Hernia Repair with Mesh: 01/11/20: Grade view 2/3, MAC# 3.0, ETT 8.0 at [facility] History of non-cataract eye surgery hx retina detachment both eyes. History of colonoscopy History of hernia surgery Left inguinal (1987) History of tonsillectomy and adenoidectomy History of laparoscopy of undescended testicle History of surgery Incision of external thrombosed hemorrhoid History of cataract surgery both eyes. S/P ankle fusion 1971, left , hardware and since removed. S/P hernia repair Open right inguinal hernia repair (09/2016) Family History Sister Breast cancer Cancer Father Prostate cancer Family history of cardiac disorder Hypertension Cancer Mother Family history of cardiac disorder Diabetes Hypertension Cancer Other SIDS (sudden infant syndrome) Denies family history of Colon cancer Ovarian cancer Crohn's disease Myocardial infarction Ulcerative colitis Social History Smoking Status: Former smoker Tobacco Type: Cigarettes Age Started Using Tobacco: 12; Age Quit Using Tobacco: 22; packs per day: 0.5; Smoking End Date: 50 yr ago.; Second Hand Exposure: No; Do You Dip or Chew Tobacco: No; Hx Alcohol Use: Yes Alcohol type: wine Alcohol Intake Frequency Comment: 2 glasses of wine a day Hx Substance Use: No Preferred Language: Venezuelan Communication Ability: Effective Visual Impairment: No Limitations Hearing Ability: Normal Transit Department Clerk Required: No Beliefs That Will Affect Care: None marital status: / Current Living Situation: Family Current Living Situation Comment: my twin sons current occupational status: retired current occupation: used to work in [employer] How many Children do You have: 2 Feels Safe at Home: Yes Childhood Exposure to Second-Hand Smoke: No Diet: other Diet Comment: radha lawson Dental Care, Regularly: Yes Physical Activity Frequency: Daily Physical Activity Frequency Comment: gardening, housework, yardwork Seatbelt Use: always Sunscreen Use: No Assistive Devices: Glasses Physical Exam Constitutional: WD/WN, vitals as above Respiratory: normal respiratory effort, lungs clear to auscultation Cardiovascular: RRR, no murmur, no edema Gastrointestinal (Abdomen): normal bowel sounds, soft, nontender, no hepatosplenomegaly Musculoskeletal: Head/Neck/Chest: normocephalic and head atraumatic Psychiatric: Orientation: alert and cooperative Affect: euthymic affect Coding Level of Care Code None Diagnoses History of colon polyps Z86.010
[2023-02-02] MEDS ORDERED: SODIUM CHLORIDE 0.9% 1,000 ML IV SCH (13:45)
--- NOTE | 2023-02-02 14:56 | GI REPORT ---
Patient Name: Blair Evans Procedure Date: 02/02/2023 2:15 PM Date of : 1955 Admit Type: Outpatient Age: 67 Gender: Male Attending MD: Roberto Toussaint MD, Procedure: Colonoscopy Providers: Roberto Toussaint MD Referring MD: Marcelo Deras Do Indications: Clinically significant diarrhea of unexplained origin, Constipation Medicines: Monitored Anesthesia Care Complications: Perforation Estimated Blood Loss: Estimated blood loss: none. Procedure: Pre-Anesthesia Assessment: - Prior Anticoagulants: The patient has taken no anticoagulant or antiplatelet agents. - ASA Grade Assessment: III - A patient with severe systemic disease. After I obtained informed consent, the scope was passed under direct vision. Throughout the procedure, the patient's blood pressure, pulse, and oxygen saturations were monitored continuously. The Colonoscope was introduced through the anus and advanced to the cecum, identified by appendiceal orifice and ileocecal valve. The colonoscopy was performed without difficulty. The patient tolerated the procedure well. The quality of the bowel preparation was poor. Findings: A 10 mm polyp was found in the ascending colon. The polyp was sessile. The polyp was removed with a piecemeal technique using a hot snare. Resection and retrieval were complete. Estimated blood loss: none. Multiple small and large-mouthed diverticula were found in the sigmoid colon and descending colon. A non-bleeding perforation was found in the sigmoid colon. This defect was medium-sized. To repair the defect, the tissue edges were approximated and one padlock [id number]-bysmb clip was successfully placed. Closure of the defect was successful. Clip web development manager: Vacatia. There was no bleeding at the end of the procedure. Non-bleeding internal hemorrhoids were found. The hemorrhoids were small. Impression: - Preparation of the colon was poor. - One 10 mm polyp in the ascending colon, removed piecemeal using a hot snare. Resected and retrieved. - Moderate diverticulosis in the sigmoid colon and in the descending colon. - A non-bleeding perforation was found in the sigmoid colon. Clip was placed. Clip web development manager: Vacatia. - Non-bleeding internal hemorrhoids. Recommendation: - Admit the patient to hospital [facility] for observation. - NPO today. - Await pathology results. - Repeat colonoscopy in 6 months for surveillance after piecemeal polypectomy. -IV antibiotics -supportive care, IVFs Roberto Toussaint MD 02/02/2023 2:56:29 PM This report has been signed electronically. Note Initiated On: 02/02/2023 2:15 PM Number of Addenda: 0 I attest to the content of the Intraoperative Record and orders documented therein, exceptions below {[id number]}
--- NOTE | 2023-02-02 15:07 | Anesthesiology Progress Note ---
Date of Service February 02, 2023 Anesthesia Post Procedure Vital Signs Vital Signs: Temp Pulse Resp BP Pulse Ox O2 Del Method 02/02/23 13:40 36.8 C 71 16 123/77 96 Room Air Transfer of Care Handoff Completed per policy Notes Mental Status: alert / awake / arousable Patient Amnestic to Procedure: Yes Nausea / Vomiting: adequately controlled Pain: adequately controlled Airway Patency, RR, SpO2: stable & adequate BP & HR: stable & adequate Hydration State: stable & adequate Anesthetic Complications: no major complications apparent and Pt Satisfied with anesthetic care
--- NOTE | 2023-02-02 15:43 | History & Physical Report ---
Date of Service February 02, 2023 Assessment & Plan (1) Perforated sigmoid colon: Plan: Colonoscopy with Dr. Toussaint on 02/02 A nonbleeding, medium-sized perforation of the sigmoid colon was noted during the procedure and repaired using a padlock [id number]-hhath clip Postop, patient denies any pain PT/INR ordered, pending Lactate ordered, pending Keep n.p.o. for now Zosyn 4.5 g IV q8h Continue IV fluid resuscitation with LR 100mL/hr x 1 Acetaminophen 1000 mg IV q8h as needed for pain/fever Continuous telemetry monitoring Per GI, no additional imaging needed Gastroenterology consulted A.m. CBC, BMP (2) Sleep apnea: Plan: Patient denies at home oxygen or CPAP usage Plan Disposition: Admit to [facility] telemetry Full code Keep n.p.o. for now; will reassess on 02/03 and advance diet per GI recommendations VTE PPx: SCDs (hold chemical DVT prophylaxis for now) History of Present Illness Chief Complaint: Perforated sigmoid colon Primary Care Provider: Marcelo Deras DO Blair is a pleasant 67-year-old male with PMH of arthritis, sleep disturbances, and sleep apnea. He presented for a routine colonoscopy on 02/[address] Toussaint, and during the procedure, a nonbleeding, medium-sized perforation was found was found in the sigmoid colon. The perforation was repaired via a padlock over the scope clip. The patient denies any pain postop. No at home oxygen use; denies using CPAP. He does not take medications on daily basis. He has no complaints at time of admission other than being hungry; he last ate the evening of Wednesday 01/31. Vital stable at time of admission. ROS: Patient endorses alternating diarrhea and constipation (which has been ongoing). Patient denies fever, chills, TOUSSAINT, chest pain, SOB, pleuritic CP, abdominal pain, N/V, urinary s/s, blood in the stool, or numbness or tingling going down the legs. He denies a PMH of [place], DVT/PE, CVA, cancer, diabetes, IBS, IBD, or diverticulitis. Allergies Allergy/AdvReac Type Severity Reaction Status Date / Time No Known Allergies Allergy Verified 02/02/23 13:23 Home Medications Medication Instructions Recorded Confirmed Type Wheeled Walker #1 ea 01/05/23 01/12/23 Rx Cataplex B Vitamin 1 dose PO QAM 01/26/23 02/02/23 History Drenamin 1 dose PO QAM 01/26/23 02/02/23 History Moringa Fulton Powder 1 dose PO QAM 01/26/23 02/02/23 History buspirone 5 mg tablet 5 mg PO UD PRN anxiety 01/26/23 02/02/23 History peg 3350-electrolytes 236 240 ml PO ONCE #4,000 mL 01/30/23 02/02/23 Rx gram-22.74 gram-6.74 gram-5.86 gram solution (Golytely) glucosamine sulfate 500 mg tablet 500 mg PO QAM 02/02/23 02/02/23 History (Glucosamine) Past Med/Surg History Medical History (Updated 02/02/23 @ 16:16 by Jose Garcia PA-C) Situational anxiety hx Low energy experiences since having covid and pneumonia in 2020. Ongoing. No change in baseline. Family history of colonic polyps History of colon polyps Chronic cough noticed a frequent cough, ongoing since having covid in 2020./no change in baseline. History of COVID-03 Feb 2021, Pneumonia followed. Sleep apnea hx device/made sleep worse/no current device. Osteoarthritis of left knee Pneumonia due to COVID-19 virus hx Emphysema lung suggested per 03/06/20 preop CXR pt not sure if dx. Hepatitis A 1978 Scoliosis Neuropathy History of cardiac murmur as a child no recent echo/no murmur at PAT visit 03/06/20 Arthritis Surgical History History of arthroscopy of right knee 2004 H/O left knee surgery 2020 Dr. Landry, partial medial and lateral meniscectomy H/O right inguinal hernia repair Right Laparoscopic Recurrent Inguinal Hernia Repair with Mesh: 01/11/20: Grade view 2/3, MAC# 3.0, ETT 8.0 at [facility] History of non-cataract eye surgery hx retina detachment both eyes. History of colonoscopy History of hernia surgery Left inguinal (1987) History of tonsillectomy and adenoidectomy History of laparoscopy of undescended testicle History of surgery Incision of external thrombosed hemorrhoid History of cataract surgery both eyes. S/P ankle fusion 1971, left , hardware and since removed. S/P hernia repair Open right inguinal hernia repair (09/2016) Family History Sister Breast cancer Cancer Father Prostate cancer Family history of cardiac disorder Hypertension Cancer Mother Family history of cardiac disorder Diabetes Hypertension Cancer Other SIDS (sudden syndrome) Denies family history of Colon cancer Ovarian cancer Crohn's disease Myocardial infarction Ulcerative colitis Social History Smoking Status: Former smoker Tobacco Type: Cigarettes Age Started Using Tobacco: 12; Age Quit Using Tobacco: 22; packs per day: 0.5; Smoking End Date: 50 yr ago.; Second Hand Exposure: No; Do You Dip or Chew Tobacco: No; Hx Alcohol Use: Yes Alcohol type: wine Alcohol Intake Frequency Comment: 2 glasses of wine a day Hx Substance Use: No Preferred Language: Malay Communication Ability: Effective Visual Impairment: No Limitations Hearing Ability: Normal Loss Prevention Leader Required: No Beliefs That Will Affect Care: None marital status: / Current Living Situation: Family Current Living Situation Comment: my twin sons current occupational status: retired current occupation: used to work in [employer] How many Children do You have: 2 Other Information That Helps Us Care for You: No Feels Safe at Home: Yes Safety Concerns: Feels Safe At This Time Childhood Exposure to Second-Hand Smoke: No Diet: other Diet Comment: radha lawson Dental Care, Regularly: Yes Physical Activity Frequency: Daily Physical Activity Frequency Comment: gardening, housework, yardwork Seatbelt Use: always Sunscreen Use: No Assistive Devices: None Review of Systems Review of Systems: See HPI above Physical Exam Physical Exam: General: no acute distress; pleasant affect; non-toxic appearing; well- nourished; cooperative HEENT: normocephalic, atraumatic; no scleral icterus; PERRLA w/ EOMs intact; moist mucus membrane; vision and hearing grossly intact Neck: supple; trachea midline Skin: warm, dry without signs of tenting; no cyanosis; no rashes, bruising, lesions, or erythema noted CV: chest wall NTP; RRR; S1/S2 normal; no murmurs/rubs/gallops; pulses intact and symmetric at radial, DP, and PT Lungs: no acute respiratory distress; symmetrical chest wall expansion; clear breath sounds across all lung mcneil w/o adventitious sounds; no wheezing ABD: Soft, NTP; BS present; no rebound/guarding; no ascites; no distention; LLQ NTP; no signs of bruising or bleeding on the abdomen or back Back: Scoliosis; negative CVA tenderness MSK: no tics or fasciculations; no edema noted in the LEs b/l; patient demonstrates ability to wiggle toes B/L Neuro: A&Ox3; normal mood and affect; fluent speech; no focal deficits; sensation grossly intact Results & Data Results & Data Vital Signs (Past 12 Hours) Vital Signs Temp Pulse Resp BP BP Pulse Ox O2 Del Method 02/02/23 15:38 59 L 18 109/76 99 Room Air 02/02/23 15:23 58 L 18 111/71 96 Room Air 02/02/23 15:16 61 18 122/71 97 Room Air 02/02/23 15:11 63 18 110/71 97 Room Air 02/02/23 15:06 67 17 107/71 95 Room Air 02/02/23 15:01 66 16 109/76 95 Room Air 02/02/23 14:56 70 16 119/82 95 Room Air 02/02/23 14:51 36.4 C 74 16 95/58 L 97 Room Air 02/02/23 13:40 36.8 C 71 16 123/77 96 Room Air Code Status & VTE Plan Code Status Full code VTE Prophylaxis Plan VTE Prophylaxis will be ordered: Yes Supervising Physician Co-Signing Physician Notes I personally saw and examined the patient. I independently reviewed the labs, problem list, medication list, past medical history and family history. I verified all mejia points and agree with Jose Garcia PA-C with the following exceptions and/or additions: 67-year-old male admitted colonoscopy with perforation. He is not having any abdominal pain at this time. No nausea or vomiting. O/E HS RRR, no murmurs, Chest CTAB, Abdo SNT A/P Sigmoid perforation - NPO, IV fluids, IV Zosyn. Consult gastroenterology. No need for surgical consult at this time. PG Care Time/CCT Total # of Minutes Spent Total Time Spent with Patient: Total time spent is greater than 50% in coordination of care (as documented) at patient's floor/unit and/or counseling patient: [place] [address] INT INP/OBS CARE MIN Patient Type Established Medical Decision Making Low Complexity Diagnoses Perforated sigmoid colon K63.1 Sleep apnea G47.30
[2023-02-02] MEDS ORDERED: PIPER/TAZO 4.5g in D5W MINI-B 100 ML IV ONE (17:00)
[2023-02-02] MEDS ORDERED: ACETAMINOPHEN 1,000 MG/100 ML VIAL IV PRN (17:07)
[2023-02-02 17:51] LABS: Basophils # (auto) 0.03 K/uL (0.00-0.20); Basophils % (auto) 0.6 %; Eosinophils # (auto) 0.07 K/uL (0.00-0.50); Eosinophils % (auto) 1.5 %; Hematocrit (blood only) 40.9 % (42.0-52.0); Hemoglobin 14.1 g/dl (14.0-18.0); Immature Granulocytes # (auto) 0.01 K/uL (0.01-0.20); Immature Granulocytes % (auto) 0.2 %; Lymphocytes # (auto) 1.04 K/uL (1.20-3.40); Lymphocytes % (auto) 22.2 %; Mean Corpuscular Hemoglobin 32.6 pg (25.0-34.0); Mean Corpuscular Hgb Conc 34.5 g/dL (32.0-36.0); Mean Corpuscular Volume 94.7 fL (80.0-100.0); Mean Platelet Volume 9.5 fL (9.4-12.4); Monocytes # (auto) 0.29 K/uL (0.11-0.59); Monocytes % (auto) 6.2 %; Neutrophils # (auto) 3.25 K/uL (1.40-6.50); Neutrophils % (auto) 69.3 %; Platelet Count 161 K/uL (130-400); RDW Coefficient of Variation 12.6 % (11.5-14.5); RDW Standard Deviation 44.2 fL (36.4-46.3); Red Blood Count 4.32 M/uL (4.70-6.10); White Blood Count 4.69 K/ul (4.8-10.8)
[2023-02-02] MEDS ORDERED: LACTATED RINGER'S 1,000 ML IV SCH (18:00)
[2023-02-02 18:07] LABS: Albumin Globulin Ratio 2.5 (0.9-2); Bilirubin,Total 0.9 mg/dl (0.2-1.0); Calcium 8.4 mg/dl (8.6-10.3); Creatinine Clr Calc Pharmacy 122.3 ml/min; Est GFR (African American) 111.6 ml/min; Est GFR (Non-African American) 96.3 ml/min; Globulin 1.6 gm/dl (2.5-4.0); Potassium 3.9 mmol/L (3.5-5.1); Total Protein 5.6 gm/dl (6.0-8.3)
[2023-02-02 18:16] LABS: INR 1.1 (0.9-1.1); Partial Thromboplastin Time 29 Seconds (21-31); Prothrombin Time 11.9 Seconds (9.0-12.0)
[2023-02-02] MEDS: PIPERACILLIN/TAZOBACTAM 4.5 GM in DEXTROSE 5% MINI-B 100 ML IV SCH (20:53)
[2023-02-03] MEDS: PIPERACILLIN/TAZOBACTAM 4.5 GM in DEXTROSE 5% MINI-B 100 ML IV SCH ×3 (05:54→21:16)
[2023-02-03 06:25] LABS: Basophils # (auto) 0.02 K/uL (0.00-0.20); Basophils % (auto) 0.3 %; Eosinophils # (auto) 0.06 K/uL (0.00-0.50); Hematocrit (blood only) 35.5 % (42.0-52.0); Hemoglobin 12.2 g/dl (14.0-18.0); Immature Granulocytes # (auto) 0.02 K/uL (0.01-0.20); Immature Granulocytes % (auto) 0.3 %; Lymphocytes # (auto) 0.79 K/uL (1.20-3.40); Lymphocytes % (auto) 13.2 %; Mean Corpuscular Hemoglobin 32.8 pg (25.0-34.0); Mean Corpuscular Hgb Conc 34.4 g/dL (32.0-36.0); Mean Corpuscular Volume 95.4 fL (80.0-100.0); Mean Platelet Volume 9.7 fL (9.4-12.4); Monocytes # (auto) 0.41 K/uL (0.11-0.59); Monocytes % (auto) 6.8 %; Neutrophils % (auto) 78.4 %; Platelet Count 146 K/uL (130-400); RDW Coefficient of Variation 12.5 % (11.5-14.5); RDW Standard Deviation 44.1 fL (36.4-46.3); Red Blood Count 3.72 M/uL (4.70-6.10)
[2023-02-03 06:43] LABS: BUN Creatinine Ratio 19.4 (10-20); Calcium 7.8 mg/dl (8.6-10.3); Creatinine Clr Calc Pharmacy 127.8 ml/min; Est GFR (African American) 113.6 ml/min; Potassium 3.6 mmol/L (3.5-5.1)
[2023-02-03] MEDS ORDERED: D5W AND LACTATED RINGERS 1,000 ML IV SCH (09:15)
--- NOTE | 2023-02-03 10:02 | Gastrointestinal Consultation ---
Date of Consultation February 03, 2023 Assessment & Plan (1) Perforated sigmoid colon: Patient appears to be stable at this time. I reviewed the case with Dr. Toussaint who advised on plan. - Continue with IV zosyn 4.5 g IV every 8 hours at this time. - Can advance his diet to clears and see how he does with this. Supervising Physician Co-Signing Physician Notes I saw the patient and agree with the findings as documented by SHANDA Beauchamp doing well today, tolerated clears, can advance diet as tolerated, continue abx. History of Present Illness Reason for Consultation: Sigmoid Perforation Requesting Physician: Jose Garcia PA-C Attending Physician: Mariela Winter MD History of Present Illness Patient is a 67 year old male with a past medical history of arthritis, sleep disturbances, and sleep apnea who underwent a routine colonoscopy on 02/[address] Toussaint. Colonoscopy revealed a 10mm colon polyp in ascending colon, diverticulosis, and during the procedure, a nonbleeding, perforation was found was found in the sigmoid colon. The perforation was repaired via a padlock over the scope clip. Afterwards he was admitted and started on Zosyn. He tells me that since this time he has not had any nausea, vomiting, or abdominal pain. No bowel movements since procedure. He tells me that other than having some difficulty sleeping last evening that he feels okay. He is questioning advancing diet and questions when he can go home. no other GI concerns at this time. lactate normal. no leukocytosis. Allergies Allergy/AdvReac Type Severity Reaction Status Date / Time No Known Allergies Allergy Verified 02/02/23 13:23 Home Medications Medication Instructions Recorded Confirmed Type Wheeled Walker #1 ea 01/05/23 01/12/23 Rx Cataplex B Vitamin 1 dose PO QAM 01/26/23 02/02/23 History Drenamin 1 dose PO QAM 01/26/23 02/02/23 History Moringa Strandquist Powder 1 dose PO QAM 01/26/23 02/02/23 History buspirone 5 mg tablet 5 mg PO UD PRN anxiety 01/26/23 02/02/23 History peg 3350-electrolytes 236 240 ml PO ONCE #4,000 mL 01/30/23 02/02/23 Rx gram-22.74 gram-6.74 gram-5.86 gram solution (Golytely) glucosamine sulfate 500 mg tablet 500 mg PO QAM 02/02/23 02/02/23 History (Glucosamine) Patient History Medical History (Updated 02/02/23 @ 16:16 by Jose Garcia PA-C) Situational anxiety hx Low energy experiences since having covid and pneumonia in 2020. Ongoing. No change in baseline. Family history of colonic polyps History of colon polyps Chronic cough noticed a frequent cough, ongoing since having covid in 2020./no change in baseline. History of COVID-03 Feb 2021, Pneumonia followed. Sleep apnea hx device/made sleep worse/no current device. Osteoarthritis of left knee Pneumonia due to COVID-19 virus hx Emphysema lung suggested per 03/06/20 preop CXR pt not sure if dx. Hepatitis A 1979 Scoliosis Neuropathy History of cardiac murmur as a child no recent echo/no murmur at PAT visit 03/06/20 Arthritis Surgical History History of arthroscopy of right knee 2004 H/O left knee surgery 2020 Dr. Landry, partial medial and lateral meniscectomy H/O right inguinal hernia repair Right Laparoscopic Recurrent Inguinal Hernia Repair with Mesh: 01/11/20: Grade view 2/3, MAC# 3.0, ETT 8.0 at [facility] History of non-cataract eye surgery hx retina detachment both eyes. History of colonoscopy History of hernia surgery Left inguinal (1987) History of tonsillectomy and adenoidectomy History of laparoscopy of undescended testicle History of surgery Incision of external thrombosed hemorrhoid History of cataract surgery both eyes. S/P ankle fusion 1971, left , hardware and since removed. S/P hernia repair Open right inguinal hernia repair (09/2016) Family History Sister Breast cancer Cancer Father Prostate cancer Family history of cardiac disorder Hypertension Cancer Mother Family history of cardiac disorder Diabetes Hypertension Cancer Other SIDS (sudden infant syndrome) Denies family history of Colon cancer Ovarian cancer Crohn's disease Myocardial infarction Ulcerative colitis Social History Smoking Status: Former smoker Tobacco Type: Cigarettes Age Started Using Tobacco: 12; Age Quit Using Tobacco: 22; packs per day: 0.5; Smoking End Date: 50 yr ago.; Second Hand Exposure: No; Do You Dip or Chew Tobacco: No; Hx Alcohol Use: Yes Alcohol type: wine Alcohol Intake Frequency Comment: 2 glasses of wine a day Hx Substance Use: No Preferred Language: Tanzanian Communication Ability: Effective Visual Impairment: No Limitations Hearing Ability: Normal Office Clinician Required: No Beliefs That Will Affect Care: None marital status: / Current Living Situation: Family Current Living Situation Comment: my twin sons current occupational status: retired current occupation: used to work in [employer] How many Children do You have: 2 Other Information That Helps Us Care for You: No Feels Safe at Home: Yes Safety Concerns: Feels Safe At This Time Childhood Exposure to Second-Hand Smoke: No Diet: other Diet Comment: radha lawson Dental Care, Regularly: Yes Physical Activity Frequency: Daily Physical Activity Frequency Comment: gardening, housework, yardwork Seatbelt Use: always Sunscreen Use: No Assistive Devices: None Physical Exam Constitutional: WD/WN, vitals as above Respiratory: normal respiratory effort, lungs clear to auscultation Cardiovascular: RRR, no murmur, no edema Gastrointestinal (Abdomen): hypoactive bowel sounds, nontender, soft, no guarding. Skin: no rashes, warm and dry Psychiatric: Orientation: alert and oriented x 3 Results & Data Vital Signs (Past 12 Hours) Vital Signs Temp Pulse Pulse Resp BP Pulse Ox O2 Del Method 02/03/23 07:53 97.9 F 68 18 112/72 94 Room Air 02/03/23 05:55 70 02/03/23 03:11 97.7 F 69 18 109/65 96 Room Air 02/02/23 23:58 97.9 F 87 18 122/79 95 Room Air 02/02/23 22:04 Room Air PG Care Time/CCT Total # of Minutes Spent Total Time Spent with Patient: Total time spent is greater than 50% in coordination of care (as documented) at patient's floor/unit and/or counseling patient: Coding Level of Care Code 90919 INT INP/OBS CARE 1/40MIN Diagnoses Perforated sigmoid colon K63.1 Time Spent (min) 40
--- NOTE | 2023-02-03 12:06 | Hospitalist Progress Note ---
Date of Service February 03, 2023 Assessment & Plan (1) Perforated sigmoid colon: Plan: Colonoscopy with Dr. Toussaint on 02/02 --> A nonbleeding, medium-sized perforation of the sigmoid colon was noted during the procedure and repaired using a padlock [id number] clip -PT/INR and lactate WNL -LR switched to D5LR this morning after hypoglycemia -GI consulted - advance diet to clear liquids - continue Zosyn 4.5 g IV every 8 hours - no further imagining needed - Tylenol as needed for pain (2) Sleep apnea: Plan: Patient denies at home oxygen or CPAP usage Plan Disposition: continued inpatient stay VTE PPx: SCDs (hold chemical DVT prophylaxis for now) Admission and Anticipated Discharge Date Admission Date: February 02, 2023 Supervising Physician Co-Signing Physician Notes PA Supervision Note: I did not personally see or examine the patient today, but I verified all mejia points of PHILLIP Mcgowan's assessment and plan with the following exceptions/additions: None Subjective Patient seen sitting up in bed. overall frustrated with situation, states that he was supposed to be home getting things ready for the holidays and his upcoming knee surgery. States that he is still very active although retired. Also frustrated as he was not able to get a sleep aid right last night. Patient is understanding that accidents have been and possible complications from the perforation. overall feeling well, has not had a bowel movement or passing gas. Denies any abdominal pain, was just advanced to clear liquids by GI and has not drank anything yet. Urinating without issue. No chest pain or shortness of breath Review of Systems Review of Systems: All systems reviewed & are unremarkable except as noted in Subjective Physical Exam Physical Exam: General: WN/WD, NAD, VS as above Resp: normal respiratory effort, lungs clear to auscultation CV: RRR, no murmur, Abd: bowel sounds x4 quadrants, non tender, no hepatosplenomegaly Extremities: Moves all extremities, no edema Neuro: A&O x3, Skin: intact, no lesions noted Results & Data Results & Data Vital Signs (Past 12 Hours) Vital Signs Temp Pulse Pulse Resp BP Pulse Ox O2 Del Method 02/03/23 11:39 36.5 C 70 20 104/67 96 Room Air 02/03/23 07:53 36.6 C 68 18 112/72 94 Room Air 02/03/23 05:55 70 02/03/23 03:11 36.5 C 69 18 109/65 96 Room Air 02/02/23 23:58 36.6 C 87 18 122/79 95 Room Air Laboratory Results CBC and chemistry reviewed PG Care Time/CCT Total # of Minutes Spent Total Time Spent with Patient: Total time spent is greater than 50% in coordination of care (as documented) at patient's floor/unit and/or counseling patient: Coding Level of Care Code 89568 SUB INP/OBS CARE 2/35MIN Diagnoses Perforated sigmoid colon K63.1 Sleep apnea G47.30
[2023-02-03] MEDS: ACETAMINOPHEN 500 MG TAB PO PRN (14:32)
[2023-02-03] MEDS ORDERED: MELATONIN 3 MG TAB PO SCH (21:00)
[2023-02-04] MEDS ORDERED: diphenhydrAMINE Capsule 25 MG CAP PO ONE (00:53)
[2023-02-04 04:57] LABS: Hematocrit (blood only) 40.1 % (42.0-52.0); Mean Corpuscular Hemoglobin 33.1 pg (25.0-34.0); Mean Corpuscular Hgb Conc 34.9 g/dL (32.0-36.0); Mean Corpuscular Volume 94.8 fL (80.0-100.0); Mean Platelet Volume 9.5 fL (9.4-12.4); Platelet Count 170 K/uL (130-400); RDW Coefficient of Variation 12.5 % (11.5-14.5); RDW Standard Deviation 43.6 fL (36.4-46.3); Red Blood Count 4.23 M/uL (4.70-6.10); White Blood Count 5.02 K/ul (4.8-10.8)
[2023-02-04 05:15] LABS: Albumin Level 3.6 gm/dl (3.4-5.0); BUN Creatinine Ratio 13.3 (10-20); Bilirubin,Total 0.5 mg/dl (0.2-1.0); Calcium 8.6 mg/dl (8.6-10.3); Creatinine Clr Calc Pharmacy 114.1 ml/min; Est GFR (African American) 108.5 ml/min; Est GFR (Non-African American) 93.6 ml/min; Globulin 1.8 gm/dl (2.5-4.0); Potassium 4.1 mmol/L (3.5-5.1); Total Protein 5.4 gm/dl (6.0-8.3)
[2023-02-04] MEDS: PIPERACILLIN/TAZOBACTAM 4.5 GM in DEXTROSE 5% MINI-B 100 ML IV SCH (05:28)
[2023-02-04] MEDS: ACETAMINOPHEN 500 MG TAB PO PRN (06:17)
--- NOTE | 2023-02-04 09:41 | Communication Note ---
Date of Service: February 04, 2023 Patient feeling well. no nausea, vomiting, abdominal pain. He tells me he did move his bowels since yesterday. dark and somewhat loose. he is tolerating a regular diet. He is anxious to be discharged to home. Discussed case with Dr. Toussaint who advised on plan. - recommend soft diet. - recommended no strenuous activity. - okay to discharge from a GI standpoint. Will plan to follow up in our office next week, 02/11/23 at 2 pm.
--- NOTE | 2023-02-04 11:35 | Discharge Summary ---
Discharge Summary Date of Service February 04, 2023 Notes For Next Care Provider -Bowel perforation during colonoscopy, repaired. No peritoneal signs or signs on infection during stay. Medication Changes From Visit -Cipro 500mg BID x3 days -Flagyl 500mg TID x3 days Admission HPI Per Admitting Provider Blair is a pleasant 67-year-old male with PMH of arthritis, sleep disturbances, and sleep apnea. He presented for a routine colonoscopy on 02/[address] Toussaint, and during the procedure, a nonbleeding, medium-sized perforation was found was found in the sigmoid colon. The perforation was repaired via a padlock over the scope clip. The patient denies any pain postop. No at home oxygen use; denies using CPAP. He does not take medications on daily basis. He has no complaints at time of admission other than being hungry; he last ate the evening of Wednesday 01/31. Vital stable at time of admission. ROS: Patient endorses alternating diarrhea and constipation (which has been ongoing). Patient denies fever, chills, TOUSSAINT, chest pain, SOB, pleuritic CP, abdominal pain, N/V, urinary s/s, blood in the stool, or numbness or tingling going down the legs. He denies a PMH of [place], DVT/PE, CVA, cancer, diabetes, IBS, IBD, or diverticulitis. Principal Dx & Hospital Course #1 = Principal Diagnosis (1) Perforated sigmoid colon: Colonoscopy with Dr. Toussaint on 02/02 --> A nonbleeding, medium-sized perforation of the sigmoid colon was noted during the procedure and repaired using a padlock [id number] clip -PT/INR and lactate WNL -GI consulted - advance diet to full diet - low fiber - Received zosyn q8 inpatient - Discharged with Cipro 500mg BID and Flagyl 500 mg TID x 3 days - no further imagining needed - Tylenol as needed for pain (2) Sleep apnea: Patient denies at home oxygen or CPAP usage Plan Discharge to home Discharge Exam General: WN/WD, NAD, VS as above Resp: normal respiratory effort, lungs clear to auscultation CV: RRR, no murmur, Abd: bowel sounds x4 quadrants, non tender, no hepatosplenomegaly Extremities: Moves all extremities, no edema Neuro: A&O x3, Skin: intact, no lesions noted Updated Medication List Medication Instructions Recorded Confirmed Type Wheeled Walker #1 ea 01/05/23 01/12/23 Rx Cataplex B Vitamin 1 dose PO QAM 01/26/23 02/02/23 History Drenamin 1 dose PO QAM 01/26/23 02/02/23 History [place] Powder 1 dose PO QAM 01/26/23 02/02/23 History buspirone 5 mg tablet 5 mg PO UD PRN anxiety 01/26/23 02/02/23 History peg 3350-electrolytes 236 240 ml PO ONCE #4,000 mL 01/30/23 02/02/23 Rx gram-22.74 gram-6.74 gram-5.86 gram solution (Golytely) glucosamine sulfate 500 mg tablet 500 mg PO QAM 02/02/23 02/02/23 History (Glucosamine) acetaminophen 500 mg tablet 500 mg PO Q4H PRN Pain 30 days #10 02/04/23 Rx (Tylenol Extra Strength) tabs ciprofloxacin HCl 500 mg tablet 500 mg PO BID 3 days #6 tabs 02/04/23 Rx melatonin 3 mg tablet 3 mg PO HS 10 days #10 tabs 02/04/23 Rx metronidazole 500 mg tablet 500 mg PO TID 3 days #9 tabs 02/04/23 Rx Hospital Stay Data Consultations 02/02/23 15:41 Consult Gastroenterology Routine Procedures Performed Operation Date: 02/02/23 13:30 Actual Procedures p Colonoscopy Polypectomy - Roberto Toussaint MD Pending Results Patient Have Any Pending Studies at Discharge: No Discharge Instructions Given to Patient (Per Discharging Provider) Mr. Evans You were hospitalized after having a bowel perforation during your colonscopy. The perforation was repaired during the operation and you were kept inpatient to monitor for any signs of infection or reopening. During your stay you white blood count which is a marker for infection remained normal and you did not have any abdominal pain which are all good signs. We treated you with IV antibiotics and you will continue two antibiotics for 3 days to prevent infection. These will be Ciprofloxacin and Flagyl. Be sure to take these with food. Start these evening of 02/04 You should continue with a low fiber diet to avoid constipation. If you have any abdominal pain, fevers or constipation issues contact GI or PCP, or you can return to the ER. It was our pleasure taking care of you, Jessica Mcgowan PA-C Total Time Total Time Spent Total Time Spent (In Minutes): 40 Supervising Physician Co-Signing Physician Notes PA Supervision Note: I personally saw and examined the patient. I verified all mejia points and agree with PHILLIP Mcgowan with the following exceptions and/or additions: S-Pt doing well, moving bowels small amounts of liquid, no blood. No abd pain or nausea, no fevers. He is quite hesitant to ever have another colonoscopy. Reviewed path that this is a sessile serrated adenoma and is precancerous. GI recommending 6 month repeat colonoscopy. If he is not willing to do colonoscopy again, at least advised Cologuard which was discussed with patient O- Vitals reviewed Gen: [AAOx3, NAD] HEENT: [anicteric sclerae, EOMI] CV: [RRR no mgr nl S1S2] Pulm: [CTAB no wcr] Abd: [+BS soft NT ND no masses or hernias] Ext: [no edema, 2+ DP pulses] Skin: [no rashes, warm/dry] Neuro: [full strength throughout] A/P-67 yo male here with perforated colon s/p colonoscopy, clipped. Doing well, suzi po, no signs of peritonitis dc to home on 3 more days of empiric antibiotics Coding Level of Care Code 12306 INP/OBS DISCH >30 MIN Diagnoses Perforated sigmoid colon K63.1 Sleep apnea G47.30
== END 2023-02-04 14:30 | disposition home or self-care (01) | DRG 908 ==
LOC: ENDO 12:33 → 2W 15:10 → INTOOBSV 15:10 → SUATTDRO 15:10

== ENCOUNTER 2025-02-11 17:15 | Observation (INO) ==
--- NOTE | 2025-02-11 17:35 | Emergency Department Note ---
Impression & Plan Abdominal pain, Ileus ED Provider Note NAME: BONG CHAPMAN AGE: 69 SEX: M : 1955 ARRIVES VIA: Walk-In INFORMANT: The patient himself. ED PROVIDER(S): Sary Grissom PA-C, [Tripp Honeycutt] CHIEF COMPLAINT: Gas, abdominal pain, bloating, constipation HISTORY OF PRESENTING ILLNESS: The patient is a 69-year-old male with a H anxiety, sleep disturbances, peripheral neuropathy, B12 deficiency, sleep apnea, chronic venous stasis bilateral lower extremities who presents to the emergency department reporting abdominal bloating, discomfort, and gas all of today. He had a bowel movement today but reports it being a small and that he feels constipated. He also reports feeling nauseous. Denies vomiting. His son encouraged that he checked his pulse ox at home and when he used it he reports his oxygen reading 88% and his heart rate was 47. He denies chest pain, shortness of breath, lightheadedness, palpitations, fever, or any other concerns. He is not sure if it was broken or if this is correct. He denies blood in his stool, recent travel, sick contacts, eating anything out of the ordinary, diarrhea, or recent antibiotic use. REVIEW OF SYSTEMS: See HPI for pertinent positives and pertinent negatives. ALLERGIES: NKDA MEDICATIONS: See below PAST MEDICAL HISTORY: See below PHYSICAL EXAM: VITALS: Vitals are noted on the nurses note and reviewed by myself. Vital signs stable. GENERAL: 69-year-old male, in no acute distress, nondiaphoretic, well-developed well-nourished. SKIN: Capillary refill less than 2 seconds. HEENT: Normocephalic. PERRLA. EOMI. Nares patent. Mucous membranes moist. Neck is supple without nuchal rigidity. HEART: Regular rate and rhythm without murmurs gallops or rubs. LUNGS: CTA BL without wheezes, rales or rhonchi. No retractions or accessory muscle use. ABDOMEN: Positive BS x 4. Soft, diffuse tenderness, without masses or organomegaly. No guarding or rebound tenderness. MUSCULOSKELETAL: No gross musculoskeletal defects. NEURO: Patient was alert and oriented to person place and time. No focal neurological deficits. DIFFERENTIAL DIAGNOSIS: Differential diagnosis includes appendicitis, diverticulitis, bowel obstruction, inflammatory bowel disease, renal colic, PUD, biliary pathology, pancreatitis, mesenteric ischemia, aortic pathology, infection, genitourinary, UTI, perforated viscus, among others. ED COURSE AND MEDICAL DECISION MAKING: MEDICATIONS GIVEN: 1 L normal saline, Zofran 4 mg IV, Tylenol 1000 mg IV MONITOR: Continuous monitoring and evaluation advisor: Order was placed for continuous monitoring and evaluation advisor. Patient was placed on the monitoring and evaluation advisor and continuous pulse ox. Patient was noted to be in normal sinus rhythm at an initial rate of 90 bpm per my interpretation. EKG: EKG was interpreted by myself as normal sinus rhythm. No obvious arrhythmia. No ST or T wave abnormality. ID interval 164 ms. QTc 435 ms. When compared to previous EKG from a 02/09/2024 no significant change seen. INTERPRETATION OF LABS: I interpreted the labs with full lab results as below in the lab section of this note. Pertinent lab results discussed in the MDM section below. INTERPRETATION OF IMAGING: I informally interpreted the patient's CT abdomen and pelvis which does not show any obvious small bowel obstruction however does show significant constipation and ileus. I reviewed the formal report below. ESCALATION OF CARE CONSIDERED: Escalation of care considered as the patient presents with abdominal pain and bloating that began this morning. CT obtained showing ileus. Patient has persistent abdominal pain. The patient was admitted to medicine. CONSULTATIONS: On-call [facility] hospitalist. MDM SUMMARY: I evaluated the 69-year-old male who presents to the ER due to abdominal bloating, gas, and abdominal pain that began this morning. See HPI and PE above. Patient's vitals are stable. 1 L normal saline, Zofran, and Tylenol given for symptom management. EKG obtained initial rate 90 bpm normal sinus rhythm. No acute changes. Labs show no leukocytosis. Hemodynamically stable. No electrolyte abnormality. No INEZ. Normal LFTs. Troponin 2.8. Lipase 14. Urinalysis shows trace ketones and trace leukocyte esterase. No hematuria. COVID/flu/RSV swab negative. Patient's vitals remained stable and he was monitored. Patient is still experiencing abdominal discomfort. CT chest shows no PE. Discussed chronic fibrosis findings and COPD findings. CT abdomen and pelvis shows fluid-filled distention of the stomach and small bowel. Suggesting diffuse ileus pattern. Otherwise unremarkable. Again on reevaluation of the patient he is lying uncomfortably in bed in discomfort. He has not had any episodes of vomiting or bowel movements in the ER. I reviewed this case with my attending who is concerned that this may lead to a small bowel obstruction due to the significant ileus seen on CT imaging. I did discuss with the patient that I believe he would benefit from admission to the hospital for further management of his symptoms. He is agreeable and all questions answered. I did consult with the [facility] hospitalist who agreed to evaluate the patient for admission. The patient was admitted in stable condition. DIAGNOSIS: Abdominal pain, ileus The chart was completed utilizing [employer] Speech voice recognition software. Grammatical errors, random word insertions, pronoun errors, and incomplete sentences are an occasional consequence of this system due to software limitations, ambient noise, and hardware issues. Any formal questions or concerns about the content, text, or information contained within the body of this dictation should be directly addressed to the provider for clarification. TREATMENT PLAN/DISCHARGE INSTRUCTIONS: The patient was admitted to medicine. See that note for further management of the patient. Attending Attestation: I Tripp Honeycutt MD I have reviewed the advanced practitioner's documentation and agree with the plan of care. I accept the responsibility for the associated risk of managing the patient. I performed a substantive portion of the visit including involvement in all aspects of medical decision making. Past Med/Surg History Problem List (Updated 02/12/25 @ 12:14 by Sary Grissom PA-C) Ileus (Acute) Abdominal pain (Acute) Elevated alkaline phosphatase level Ileus Abdominal pain Anxiety Seborrheic keratoses Chronic venous stasis dermatitis of both lower extremities Rash Blister of foot, left Sleep apnea hx device/made sleep worse/no current device. 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 Right cheek biopsied 05/25/23 with negative margins Second degree burn Right wrist pain Right inguinal hernia Recurrent right inguinal hernia Right hip pain Eustachian tube dysfunction Hamstring strain High serum lactate Knee effusion Lip numbness Left wrist pain Left knee injury Left elbow pain COVID-19 Chest pain Acute hypotension Abnormal liver enzymes Scratch of right hand Hx of hepatitis (1978) Hep A Hx of hypotension 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 Right cheek biopsied 05/25/23 with negative margins Hx of colonic polyps Somatic dysfunction of lower extremities Somatic dysfunction of rib Perforated sigmoid colon (02/02/23) Hx- Admitted to [facility] 02/02/23-02/04/23- repaired using padlock over the scope clip ; treated with Zosyn- discharged on Cipro and Flagyl Osteoarthritis History of COVID-19 (01/2021) Jan 2021, Pneumonia followed- admitted- no current issues Emphysema lung suggested per 03/06/20 preop CXR pt denies Scoliosis Neuropathy feet History of cardiac murmur as a child - no murmur at PAT visit 02/05/23 - ECHO 2020 showed only mild TR Surgical History Status post arthroscopy of knee 2020 Frantz partial medial and lateral meniscectomy S/P left knee arthroscopy PHILLIP Santo (2004) Hx of colonoscopy with polypectomy History of arthroscopy of right knee (2020) left- 2004 and 2020 Frantz partial medial and lateral meniscectomy H/O left knee surgery (2020) 2020 Dr. Landry, partial medial and lateral meniscectomy left knee arthroscopy - leticia 2004 H/O right inguinal hernia repair (2019) Right Laparoscopic Recurrent Inguinal Hernia Repair with Mesh: 01/11/20: Grade view 2/3, MAC# 3.0, ETT 8.0 at [facility] History of non-cataract eye surgery hx retina detachment both eyes. History of hernia surgery (1987) Left inguinal (1987) History of tonsillectomy and adenoidectomy History of laparoscopy of undescended testicle History of surgery Incision of external thrombosed hemorrhoid History of cataract surgery both eyes. S/P ankle fusion (1971) 1972, left , hardware and since removed. S/P hernia repair (09/2016) Open right inguinal hernia repair (09/2016) Family History Sister Breast cancer Cancer Father Prostate cancer Family history of cardiac disorder Hypertension Cancer Mother Family history of cardiac disorder Diabetes Hypertension Cancer Other SIDS (sudden infant syndrome) Denies family history of Colon cancer Ovarian cancer Crohn's disease Myocardial infarction Ulcerative colitis Social History Smoking Status: Former smoker Tobacco Type: Cigarettes Age Started Using Tobacco: 12; Age Quit Using Tobacco: 22; packs per day: 0.5; Second Hand Exposure: No; Do You Dip or Chew Tobacco: No; Hx Alcohol Use: Yes Alcohol type: wine Alcohol Intake Frequency: 4 or More x per/Week Alcohol Intake Frequency Comment: 2 glasses of wine a day Hx Substance Use: No Preferred Language: Welsh Communication Ability: Effective Visual Impairment: Limited Hearing Ability: Normal Specialty Person Required: No Beliefs That Will Affect Care: None marital status: / Current Living Situation: Family Current Living Situation Comment: twin sons current occupational status: retired current occupation: used to work in [employer] How many Children do You have: 2 Feels Safe at Home: Yes Safety Concerns: Feels Safe At This Time Childhood Exposure to Second-Hand Smoke: No Diet: other Diet Comment: kosher diet caffeine: Yes during the past year weight has: remained stable Dental Care, Regularly: Yes Physical Activity Frequency: Daily Physical Activity Frequency Comment: gardening, housework, yardwork Seatbelt Use: always Sunscreen Use: No Do you think of yourself as: straight/heterosexual Sexual Activity: has been sexually active, but not for at least 12 months Gender Identity: Male Assistive Devices: Glasses Allergies Allergies Allergy/AdvReac Type Severity Reaction Status Date / Time No Known Allergies Allergy Verified 02/11/25 19:39 Home Meds Home Medications Medication Instructions Recorded Confirmed Moringa Sundance Powder 1 dose PO QAM 01/26/23 02/11/25 [id number] C-Mn 500 1 cap PO DAILY 02/08/24 02/11/25 mg-400 mg capsule Food Base Multivitamin 1 dose PO DAILY 02/11/25 02/11/25 Results & Data (ED) Vital Signs Vital Signs - 24 hr 02/11/25 17:17 02/11/25 17:55 02/11/25 19:30 Temperature 36.5 C Temperature Source Temporal Artery Scan Pulse Rate 105 H 85 Pulse Rate [Right Finger] 87 Pulse Rhythm [Right Finger] Regular Respiratory Rate 18 16 Respiratory Effort / Characteristics Non-Labored Respiratory Depth Normal Blood Pressure 116/83 Blood Pressure [Right Arm] 126/84 Blood Pressure Mean 94 Blood Pressure Mean [Right Arm] 98 Pulse Oximetry 97 95 Oxygen Delivery Method Room Air Room Air Sepsis Recent Fever Within 48 Hours No Sepsis New/Unexplained Change in Mental Status N/A Sepsis Action Taken by Nursing No Action Required 02/11/25 21:26 Temperature Temperature Source Pulse Rate Pulse Rate [Right Finger] 87 Pulse Rhythm [Right Finger] Regular Respiratory Rate 16 Respiratory Effort / Characteristics Non-Labored Respiratory Depth Normal Blood Pressure Blood Pressure [Right Arm] 100/62 Blood Pressure Mean Blood Pressure Mean [Right Arm] 74 Pulse Oximetry 94 Oxygen Delivery Method Room Air Sepsis Recent Fever Within 48 Hours Sepsis New/Unexplained Change in Mental Status Sepsis Action Taken by Nursing Laboratory Data 02/11/25 17:33 02/12/25 05:15 Lab Results 02/11/25 02/11/25 02/11/25 Range/Units 17:33 18:00 18:32 WBC 8.89 (4.8-10.8) K/ul RBC 4.90 (4.70-6.10) M/uL Hgb 16.4 (14.0-18.0) g/dL Hct 46.1 (42.0-52.0) % MCV 94.1 (80.0-100.0) fL MCH 33.5 (25.0-34.0) pg MCHC 35.6 (32.0-36.0) g/dL RDW Std Deviation 45.0 (36.4-46.3) fL RDW Coeff of Heather 13.2 (11.5-14.5) % Plt Count 205 (130-400) K/uL MPV 9.7 (9.4-12.4) fL Immature Gran % (Auto) 0.6 % Neut % (Auto) 91.4 % Lymph % (Auto) 3.7 % Latimer % (Auto) 3.5 % Eos % (Auto) 0.7 % Baso % (Auto) 0.1 % Neut # (Auto) 8.13 H (1.40-6.50) K/uL Lymph # (Auto) 0.33 L (1.20-3.40) K/uL Latimer # (Auto) 0.31 (0.11-0.59) K/uL Eos # (Auto) 0.06 (0.00-0.50) K/uL Baso # (Auto) 0.01 (0.00-0.20) K/uL Immature Gran # (Auto) 0.05 (0.01-0.20) K/uL Sodium 141 (136-145) mmol/L Potassium 3.6 (3.5-5.1) mmol/L Chloride 104 (98-107) mmol/L Carbon Dioxide 29 (21-32) mmol/L Anion Gap 8 (3-11) BUN 11 (6-23) mg/dl Creatinine 0.72 (0.6-1.4) mg/dl Est Cr Clr Drug Dosing 115.5 ml/min eGFR 97.68 BUN/Creatinine Ratio 15.3 (10-20) Glucose 143 H (70-99(Fasting)) mg/dl Calcium 9.1 (8.6-10.3) mg/dl Total Bilirubin 0.8 (0.2-1.0) mg/dl AST 18 (13-39) U/L ALT 19 (7-52) U/L Alkaline Phosphatase 112 H (34-104) U/L Troponin I High Sens 2.8 (0-20) pg/ml Total Protein 6.9 (6.0-8.3) gm/dl Albumin 4.4 (3.4-5.0) gm/dl Globulin 2.5 (2.5-4.0) gm/dl Albumin/Globulin Ratio 1.8 (0.9-2) Lipase 14 (11-82) U/L Urine Color Dark Yellow Urine Appearance Clear (Clear) Urine pH 8.5 H (4.5-7.5) Ur Specific Mears 1.019 (1.000-1.030) Urine Protein Negative (Negative) Urine Glucose (UA) Negative (Negative) Urine Ketones Trace H (Negative) Urine Blood Negative (Negative) Urine Nitrite Negative (Negative) Urine Bilirubin Negative (Negative) Urine Urobilinogen Negative (Negative) Ur Leukocyte Esterase Trace H (Negative) Urine WBC (Auto) 0-5 (0-5) /hpf Urine RBC (Auto) 0-2 (0-2) /hpf U Hyaline Cast (Auto) 0-2 (0-2) /lpf U Epithel Cells (Auto) 0-2 (0-2) /hpf Urine Bacteria (Auto) None Seen (None Seen) Urine Comment SARS-CoV-2 (PCR) NEGATIVE (Negative) Influenza Type A (PCR) Negative (Neg) Influenza Type B (PCR) Negative (Neg) RSV (RT-PCR) Negative (Neg) Administered Medications Acetaminophen (Acetaminophen 325 Mg Tab) 650 mg PO Q4H PRN PRN Reason: pain/fever Stop: 03/13/25 23:47 Last Admin: 02/12/25 08:21 Dose: 650 mg Documented By: CEF Hydroxyzine HCl (Hydroxyzine Hcl 25 Mg Tab) 25 mg PO Q8H PRN PRN Reason: Anxiety Stop: 03/14/25 08:49 Last Admin: 02/12/25 09:21 Dose: 25 mg Documented By: CEF Dextrose/Lactated Ringer's (D5w And Lactated Ringers) 1,000 mls @ 80 mls/hr IV .[id number] WING Stop: 02/15/25 08:59 Last Admin: 02/12/25 09:24 Dose: 80 mls/hr Documented By: CEF Melatonin (Melatonin 3 Mg Tab) 3 mg PO HS PRN PRN Reason: Insomnia Stop: 03/13/25 23:47 Last Admin: 02/12/25 01:51 Dose: 3 mg Documented By: Discontinued Medications Sodium Chloride (Nss) 1,000 mls @ 999 mls/hr IV .Q1H1M ONE Stop: 02/11/25 20:38 Last Infusion: 02/11/25 21:18 Dose: Infused Documented By: julita Admin: 02/11/25 19:55 Dose: 999 mls/hr Documented By: julita Acetaminophen (Ofirmev) 1,000 mg in 100 mls @ 400 mls/hr IV NOW STA Stop: 02/11/25 21:56 Last Infusion: 02/11/25 22:47 Dose: Infused Documented By: [email or web address] Admin: 02/11/25 22:19 Dose: 400 mls/hr Documented By: julita Lactated Ringer's (Lr) 1,000 mls @ 125 mls/hr IV .Q8H WING Stop: 02/12/25 06:29 Last Infusion: 02/12/25 09:24 Dose: Infused Documented By: Admin: 02/12/25 01:51 Dose: 125 mls/hr Documented By: Ioversol (Optiray 320 125ml) 119 ml IV ONCE ONE Stop: 02/11/25 19:14 Last Admin: 02/11/25 19:14 Dose: 119 ml Documented By: BETH Ketorolac Tromethamine (Ketorolac Tromethamine 15 Mg/Ml Vial) 15 mg IV NOW ONE Stop: 02/11/25 22:20 Last Admin: 02/11/25 22:47 Dose: 15 mg Documented By: julita Ondansetron HCl (Ondansetron Inj 2 Mg/Ml 2 Ml Vial) 4 mg IV NOW STA Stop: 02/11/25 21:43 Last Admin: 02/11/25 22:19 Dose: 4 mg Documented By: julita Potassium Chloride (Potassium Chloride Crtab 20 Meq Tabcr) 40 meq PO NOW STA Stop: 02/12/25 08:52 Last Admin: 02/12/25 09:21 Dose: 40 meq Documented By: CEF Discharge Plan Visit Data Chief Complaint: Abdominal Pain Stated Complaint: GAS, BAD STOMACH PRESSURE, BLOATING HR UP, OX UP ED Provider: Tripp Honeycutt ED Midlevel Provider: Sary Grissom Discharge Problem: Abdominal pain, Ileus Patient Disposition: Admitted As Inpatient Condition: Good Discharge Instructions Interventions: ED Discharge Assessment Last Done: 02/11/25 23:49 Discharge Problem: Abdominal pain Qualifiers: Abdominal location: generalized Qualified Code(s): R10.84 - Generalized abdominal pain
[2025-02-11 18:18] LABS: Hematocrit (blood only) 46.1 % (42.0-52.0); Hemoglobin 16.4 g/dL (14.0-18.0); Mean Corpuscular Hemoglobin 33.5 pg (25.0-34.0); Mean Corpuscular Volume 94.1 fL (80.0-100.0); Platelet Count 205 K/uL (130-400); RDW Standard Deviation 45.0 fL (36.4-46.3); Red Blood Count 4.90 M/uL (4.70-6.10); White Blood Count 8.89 K/ul (4.8-10.8)
[2025-02-11 18:27] LABS: Alanine Aminotransferase 19.0 U/L (7-52); Albumin Globulin Ratio 1.8 (0.9-2); Albumin Level 4.4 gm/dl (3.4-5.0); Alkaline Phosphatase 112.0 U/L (34-104); Anion Gap 8.0 (3-11); Bilirubin,Total 0.8 mg/dl (0.2-1.0); Blood Urea Nitrogen 11.0 mg/dl (6-23); Calcium 9.1 mg/dl (8.6-10.3); Carbon Dioxide 29.0 mmol/L (21-32); Chloride 104.0 mmol/L (98-107); Creatinine Clr Calc Pharmacy 115.5 ml/min; Globulin 2.5 gm/dl (2.5-4.0); Glucose 143.0 mg/dl (70-99(Fasting)); Lipase 14.0 U/L (11-82); Potassium 3.6 mmol/L (3.5-5.1); Sodium 141.0 mmol/L (136-145); Total Protein 6.9 gm/dl (6.0-8.3)
[2025-02-11 18:39] LABS: Immature Granulocytes # (auto) 0.05 K/uL (0.01-0.20); Immature Granulocytes % (auto) 0.6 %
[2025-02-11 18:53] LABS: Appearance Urine Clear (Clear); Bacteria Urine Automated None Seen (None Seen); Cast Urine Automated 0-2 /lpf (0-2); Epithelial Cell Urine Auto 0-2 /hpf (0-2); Glucose Urine UA Negative (Negative); RBC Urine Automated 0-2 /hpf (0-2); WBC Urine Automated 0-5 /hpf (0-5)
[2025-02-11 19:04] LABS: Influenza A virus by PCR Negative (Neg); Influenza B virus by PCR Negative (Neg); SARS CoV2 RNA(COVID-19) Ceph NEGATIVE (Negative)
[2025-02-11] MEDS: OPTIRAY 320 125ml IV ONE (19:14)
[2025-02-11] MEDS: SODIUM CHLORIDE 0.9% 1,000 ML IV ONE (19:55)
--- NOTE | 2025-02-11 21:03 | CT Scan Report ---
Exam: CT angiogram chest with pulmonary embolus protocol. Reason for exam: Hypoxia. Pain and bloating. Previous studies: Chest radiograph 02/09/2024; CT angiogram chest 02/12/2021. FINDINGS: There is good opacification of the pulmonary arteries. At this time no persistent filling defect to indicate embolus is seen on either side. Pulmonary arteries appears within normal limit size and no evidence of right ventricular strain is identified. Suboptimally opacified however no gross evidence of aneurysm is seen. Dissection cannot be evaluated. No significant coronary artery calcification noted. The lungs show moderate areas of reticular atelectasis and fibrosis in both lower lobes similar to the previous study. Diffuse hyperinflation suggesting emphysematous COPD remains present. Chronic pleural thickening is seen bilaterally. No significant abnormal hilar or mediastinal mass or adenopathy is noted. Fluid-filled distention of the stomach is noted. IMPRESSION: 1. Negative for pulmonary embolus. 2. Moderate diffuse reticular opacities in also present on the previous study of 02/12/2021 suggesting chronic fibrosis without superimposed atelectasis. 3. Chronic pleural thickening. 4. 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 5. Moderate fluid-filled distention of the stomach. Electronically signed by Richy Fernandez 02-11-2025 9:02 PM
--- NOTE | 2025-02-11 21:09 | CT Scan Report ---
Exam: CT abdomen/pelvis with IV contrast. Reason for exam: Hypoxia with gas and bloating. Previous studies: Ultrasound of the abdomen 01/26/2023. FINDINGS: Moderate fluid-filled distention of the stomach is present. Moderate fluid-filled small bowel distention is seen as well suggesting a generalized ileus pattern. There is also some gas in the entire colon to the level of the rectum. Extensive diverticulosis is seen in the ascending and sigmoid colons. The adrenal glands are unremarkable. Renal cysts seen without solid renal lesion or hydronephrosis. No free air is seen. Prostate is somewhat enlarged and inhomogeneous. Small hiatal hernia noted. Bilateral inguinal hernias noted without bowel loop entrapment at this time. No acute or active bony process seen. IMPRESSION: 1. Moderate fluid-filled distention of the stomach and small bowel suggesting possible diffuse ileus pattern. 2. Extensive diverticulosis of the descending and sigmoid colon without specific evidence of active diverticulitis. 3. Otherwise negative for acute abnormalities. Electronically signed by Richy Fernandez 02-11-2025 9:08 PM
--- NOTE | 2025-02-11 21:54 | History & Physical Report ---
Date of Service February 11, 2025 Assessment & Plan (1) Abdominal pain: (2) Ileus: (3) Diarrhea: (4) Elevated alkaline phosphatase level: Plan 69-year-old male PMHx anxiety, sleep disturbances, peripheral neuropathy, B12 deficiency, OA, chronic venous stasis of both legs, keratoses presenting for abdominal pain with bloating and increased gas starting day of arrival. Labs are gross unremarkable with exception of alkaline phosphatase elevated at 112 and glucose slightly elevated at 143. His imaging of the abdomen does reveal findings suggestive of a possible diffuse ileus, chest imaging does not reveal any acute findings with exception of some fluid-filled distention of the stomach. Admission for abdominal pain and probable ileus. #Abdominal pain/Ileus/Diarrhea Abdominal distention, pain, and increased gas starting day of arrival. Having di arrhea, > 10 episodes per day; pending stool studies. Ileus at this time, may be infectious related. No opioids, last abx ~ 2 weeks [employer] for PNA. Admission for IVF, pain management, further bowel management. - CBC WNL; CMP grossly unremarkable with exception of alkaline 112; troponin WNL, lipase WNL - BMP am - UA without infection - CTAP suggestive of ileus - Chest CTA no PE, moderate fluid fluid distention of stomach - Stool studies pending - Clear liquids - IVF LR @ 125 mL/hr - Zofran prn N/V - Acetaminophen prn fever/pain, ketorolac prn moderate-severe pain - Maalox prn - Avoid slowing GI motility with opioids, will add on only if absolutely necessary - Consider GI consult as necessary - none at time of admission #Elevated alkaline phosphatase With abdominal pain, no additional LFT abnormalities. Does have history of OA. - Alkaline phosphatase 112, remaining LFTs WNL - Trend as appropriate #Sleep disturbances/BLAYNE- Cannot tolerate CPAP; Melatonin prn #H/o SCC- Follows with dermatology Dispo: Admit, med/sx VTE Prophylaxis: SCDs This document was dictated utilizing [employer]. Please excuse any grammatical errors that may be secondary to use of this software. Admission and Anticipated Discharge Date Admission Date: 02/11/2025 History of Present Illness Chief Complaint: Abdominal discomfort Primary Care Provider: Marcelo Deras, 69-year-old male PMHx anxiety, sleep disturbances, peripheral neuropathy, B12 deficiency, OA, chronic venous stasis of both legs, keratoses presenting for abdominal pain with bloating and increased gas starting day of arrival. Reports that he has had ~ > 10 episodes of diarrhea starting the day of arrival, accompanied by abdominal discomfort and bloating. Denies N/V. He did have blood in his stool with one episode of diarrhea towards the end of the bout and feels that it was 2/2 irritation to his bottom. His usually BM regimen is every morning, ~ 2x. His last normal BM was the morning [employer]. He was on abx ~ 2 weeks [employer] for PNA, prescribed by outside facility. Also reports eating at a [employer] the week [employer]. He feels weak at baseline, feels that he is "run down." No one around him is with similar symptoms. Reports that he is always "somewhat" SOB, not worse than usual at present. Denies CP, palpitations, N/V, numbness/tingling, F/C, URI symptoms, LUTS, syncope, or falls. 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 Please see Dr. Adams's attestation for adjustments/additions to treatment plan. Allergies Allergy/AdvReac Type Severity Reaction Status Date / Time No Known Allergies Allergy Verified 02/11/25 19:39 Home Medications Medication Instructions Recorded Confirmed Type Moringa [place] Powder 1 dose PO QAM 01/26/23 02/11/25 History [id number] C-Mn 500 1 cap PO DAILY 02/08/24 02/11/25 History mg-400 mg capsule Food Base Multivitamin 1 dose PO DAILY 02/11/25 02/11/25 History Past Med/Surg History Problem List Elevated alkaline phosphatase level Ileus Abdominal pain Anxiety Seborrheic keratoses Chronic venous stasis dermatitis of both lower extremities Rash Blister of foot, left Sleep apnea hx device/made sleep worse/no current device. 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 Right cheek biopsied 05/25/23 with negative margins Second degree burn Right wrist pain Right inguinal hernia Recurrent right inguinal hernia Right hip pain Eustachian tube dysfunction Hamstring strain High serum lactate Knee effusion Lip numbness Left wrist pain Left knee injury Left elbow pain COVID-19 Chest pain Acute hypotension Abnormal liver enzymes Scratch of right hand Hx of hepatitis (1978) Hep A Hx of hypotension 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 Right cheek biopsied 05/25/23 with negative margins Hx of colonic polyps Somatic dysfunction of lower extremities Somatic dysfunction of rib Perforated sigmoid colon (02/02/23) Hx- Admitted to [facility] 02/02/23-02/04/23- repaired using padlock over the scope clip ; treated with Zosyn- discharged on Cipro and Flagyl Osteoarthritis History of COVID-19 (01/2021) Jan 2021, Pneumonia followed- admitted- no current issues Emphysema lung suggested per 03/06/20 preop CXR pt denies Scoliosis Neuropathy feet History of cardiac murmur as a child - no murmur at PAT visit 02/05/23 - ECHO 2020 showed only mild TR Surgical History Status post arthroscopy of knee 2020 Frantz partial medial and lateral meniscectomy S/P left knee arthroscopy PHILLIP Santo (2004) Hx of colonoscopy with polypectomy History of arthroscopy of right knee (2020) left- 2004 and 2020 Frantz partial medial and lateral meniscectomy H/O left knee surgery (2020) 2020 Dr. Frantz, partial medial and lateral meniscectomy left knee arthroscopy - [place] 2004 H/O right inguinal hernia repair (2019) Right Laparoscopic Recurrent Inguinal Hernia Repair with Mesh: 01/11/20: Grade view 2/3, MAC# 3.0, ETT 8.0 at [facility] History of non-cataract eye surgery hx retina detachment both eyes. History of hernia surgery (1987) Left inguinal (1987) History of tonsillectomy and adenoidectomy History of laparoscopy of undescended testicle History of surgery Incision of external thrombosed hemorrhoid History of cataract surgery both eyes. S/P ankle fusion (1971) 1971, left , hardware and since removed. S/P hernia repair (09/2016) Open right inguinal hernia repair (09/2016) Family History Sister Breast cancer Cancer Father Prostate cancer Family history of cardiac disorder Hypertension Cancer Mother Family history of cardiac disorder Diabetes Hypertension Cancer Other SIDS (sudden infant syndrome) Denies family history of Colon cancer Ovarian cancer Crohn's disease Myocardial infarction Ulcerative colitis Social History Smoking Status: Former smoker Tobacco Type: Cigarettes Age Started Using Tobacco: 12; Age Quit Using Tobacco: 22; packs per day: 0.5; Second Hand Exposure: No; Do You Dip or Chew Tobacco: No; Hx Alcohol Use: Yes Alcohol type: beer Alcohol Intake Frequency: 4 or More x per/Week Alcohol Intake Frequency Comment: 2 glasses of wine a day Hx Substance Use: No Preferred Language: Irish Communication Ability: Effective Visual Impairment: Limited Hearing Ability: Normal Speech Pathology Assistant Required: No Beliefs That Will Affect Care: None marital status: / Current Living Situation: Family Current Living Situation Comment: twin sons current occupational status: retired current occupation: used to work in carpentry How many Children do You have: 2 Feels Safe at Home: Yes Childhood Exposure to Second-Hand Smoke: No Diet: other Diet Comment: kosher diet caffeine: Yes during the past year weight has: remained stable Dental Care, Regularly: Yes Physical Activity Frequency: Daily Physical Activity Frequency Comment: gardening, housework, yardwork Seatbelt Use: always Sunscreen Use: No Do you think of yourself as: straight/heterosexual Sexual Activity: has been sexually active, but not for at least 12 months Gender Identity: Male Assistive Devices: Glasses Review of Systems Review of Systems: All systems reviewed & are unremarkable except as noted in Subjective Physical Exam Physical Exam: General: No acute distress Skin: Warm and dry Head: Normocephalic, atraumatic Eyes: PERRL, conjunctivae clear, sclera non-icteric; wearing glasses ENT: External ear and ear canal without swelling; nose atraumatic; fair dentition, tongue normal appearance, pharynx normal Neck: Supple, no LAD Cardio: RRR, no M/G/R, S1 and S2 normal Resp: No respiratory distress, Lungs CTA in all lobes bilaterally, no wheezes, rales, or rhonchi Abdomen: Soft, symmetric, generalized mild tenderness throughout ; No masses or hepatosplenomegaly; Bowel sounds normoactive MSK: No deformities; pulses palpable and equal; no edema. Neuro: Awake, alert; Sensation intact bilaterally; CN grossly intact Psych: Appropriate mood and affect; good judgement and insight. 2 family members present in room at time of visit. Results & Data Results & Data Vital Signs (Past 12 Hours) Vital Signs Temp Pulse Pulse Resp BP BP Pulse Ox 02/11/25 21:26 87 16 100/62 94 02/11/25 19:30 87 16 126/84 95 02/11/25 17:55 85 02/11/25 17:17 36.5 C 105 H 18 116/83 97 O2 Del Method 02/11/25 21:26 Room Air 02/11/25 19:30 Room Air 02/11/25 17:55 02/11/25 17:17 Room Air Laboratory Results 02/11/25 02/11/25 02/11/25 18:32 18:00 17:33 WBC 8.89 RBC 4.90 Hgb 16.4 Hct 46.1 MCV 94.1 MCH 33.5 MCHC 35.6 RDW Std Deviation 45.0 RDW Coeff of Heather 13.2 Plt Count 205 MPV 9.7 Immature Gran % (Auto) 0.6 Neut % (Auto) 91.4 Lymph % (Auto) 3.7 [place] % (Auto) 3.5 Eos % (Auto) 0.7 Baso % (Auto) 0.1 Neut # (Auto) 8.13 H Lymph # (Auto) 0.33 L [place] # (Auto) 0.31 Eos # (Auto) 0.06 Baso # (Auto) 0.01 Immature Gran # (Auto) 0.05 Sodium 141 Potassium 3.6 Chloride 104 Carbon Dioxide 29 Anion Gap 8 BUN 11 Creatinine 0.72 Est Cr Clr Drug Dosing 115.5 eGFR 97.68 BUN/Creatinine Ratio 15.3 Glucose 143 H Calcium 9.1 Total Bilirubin 0.8 AST 18 ALT 19 Alkaline Phosphatase 112 H Troponin I High Sens 2.8 Total Protein 6.9 Albumin 4.4 Globulin 2.5 Albumin/Globulin Ratio 1.8 Lipase 14 Urine Color Dark Yellow Urine Appearance Clear Urine pH 8.5 H Ur Specific [place] 1.019 Urine Protein Negative Urine Glucose (UA) Negative Urine Ketones Trace H Urine Blood Negative Urine Nitrite Negative Urine Bilirubin Negative Urine Urobilinogen Negative Ur Leukocyte Esterase Trace H Urine WBC (Auto) 0-5 Urine RBC (Auto) 0-2 U Hyaline Cast (Auto) 0-2 U Epithel Cells (Auto) 0-2 Urine Bacteria (Auto) None Seen Urine Comment SARS-CoV-2 (PCR) NEGATIVE Influenza Type A (PCR) Negative Influenza Type B (PCR) Negative RSV (RT-PCR) Negative Diagnostic Findings Abdomen/Pelvis CT 02/11/25 17:57 Exam: CT abdomen/pelvis with IV contrast. Reason for exam: Hypoxia with gas and bloating. Previous studies: Ultrasound of the abdomen 01/26/2023. FINDINGS: Moderate fluid-filled distention of the stomach is present. Moderate fluid-filled small bowel distention is seen as well suggesting a generalized ileus pattern. There is also some gas in the entire colon to the level of the rectum. Extensive diverticulosis is seen in the ascending and sigmoid colons. The adrenal glands are unremarkable. Renal cysts seen without solid renal lesion or hydronephrosis. No free air is seen. Prostate is somewhat enlarged and inhomogeneous. Small hiatal hernia noted. Bilateral inguinal hernias noted without bowel loop entrapment at this time. No acute or active bony process seen. IMPRESSION: 1. Moderate fluid-filled distention of the stomach and small bowel suggesting possible diffuse ileus pattern. 2. Extensive diverticulosis of the descending and sigmoid colon without specific evidence of active diverticulitis. 3. Otherwise negative for acute abnormalities. Electronically signed by Richy Fernandez 02-11-2025 9:08 PM Chest CTA 02/11/25 17:57 Exam: CT angiogram chest with pulmonary embolus protocol. Reason for exam: Hypoxia. Pain and bloating. Previous studies: Chest radiograph 02/09/2024; CT angiogram chest 02/12/2021. FINDINGS: There is good opacification of the pulmonary arteries. At this time no persistent filling defect to indicate embolus is seen on either side. Pulmonary arteries appears within normal limit size and no evidence of right ventricular strain is identified. Suboptimally opacified however no gross evidence of aneurysm is seen. Dissection cannot be evaluated. No significant coronary artery calcification noted. The lungs show moderate areas of reticular atelectasis and fibrosis in both lower lobes similar to the previous study. Diffuse hyperinflation suggesting emphysematous COPD remains present. Chronic pleural thickening is seen bilaterally. No significant abnormal hilar or mediastinal mass or adenopathy is noted. Fluid-filled distention of the stomach is noted. IMPRESSION: 1. Negative for pulmonary embolus. 2. Moderate diffuse reticular opacities in also present on the previous study of 02/12/2021 suggesting chronic fibrosis without superimposed atelectasis. 3. Chronic pleural thickening. 4. 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 5. Moderate fluid-filled distention of the stomach. Electronically signed by Richy Fernandez 02-11-2025 9:02 PM Medications Administered 1L NSS Zofran 4 mg IV Acetaminophen 1 g IV Code Status & VTE Plan Code Status Full Supervising Physician Co-Signing Physician Notes Patient seen and examined, chart reviewed, case discussed with JEFFY Patel and I agree with the assessment and plan as above. Patient with diarrhea over the last several days - reports copious amounts of watery diarrhea. No sick contacts. He was on antibiotics 2 weeks ago. Is on well water - nobody else in the home with symptoms. Did eat at a [employer] buffet 2-3 days before his diarrhea started. Now with ileus noted on imaging. Likely post-infectious Patient with minimal nausea, no vomiting Abdominal pain improved after Tylenol On exam patient is resting comfortably, NAD Skin - no rash HEENT - dry MM, neck supple Heart - +S1/S2, regular, no m/r/g Lungs - CTA Abd - soft, mildly tender diffusely with no rebound or guarding Ext - no edema Labs and images reviewed Assessment/Plan -Check stool PCR and C. diff -Clear liquid diet, advance as tolerated -LR at 125mL/hr -Tylenol PRN -Remainder as above PG Care Time/CCT Total # of Minutes Spent Total Time Spent with Patient: Total time spent is greater than 50% in coordination of care (as documented) at patient's floor/unit and/or counseling patient: Coding Level of Care Code 78588 INT INP/OBS CARE 3/75MIN Diagnoses Abdominal pain R10.9 Ileus K56.7 Diarrhea R19.7 Elevated alkaline phosphatase level R74.8
[2025-02-11] MEDS: ACETAMINOPHEN 1,000 MG/100 ML VIAL IV STA (22:19)
[2025-02-11] MEDS: ONDANSETRON INJ 2 MG/ML 2 ML VIAL IV STA (22:19)
[2025-02-11] MEDS ORDERED: LORazepam Inj 0.25 MG in SYRINGE 0.125 ML IV PRN (22:19)
[2025-02-11] MEDS: KETOROLAC TROMETHAMINE 15 MG/ML VIAL IV ONE (22:47)
[2025-02-11] MEDS ORDERED: ALUMINUM/MAGNESIUM SUSP 30 ML UDC PO PRN (23:48)
[2025-02-11] MEDS ORDERED: MAGNESIUM HYDROXIDE SUSP 30 ML UDC PO PRN (23:48)
[2025-02-11] MEDS ORDERED: ONDANSETRON INJ 2 MG/ML 2 ML VIAL IV PRN (23:48)
[2025-02-11] MEDS ORDERED: POLYETHYLENE (MIRALAX) 17 GM PACK PO PRN (23:48)
[2025-02-11] MEDS ORDERED: ACETAMINOPHEN 1,000 MG/100 ML VIAL IV PRN (23:48)
[2025-02-11] MEDS ORDERED: KETOROLAC TROMETHAMINE 15 MG/ML VIAL IV PRN (23:48)
[2025-02-12 01:04] LABS: Cdiff Toxin B Gene (2yr or >) Negative Cdiff Gene (Neg)
[2025-02-12 01:34] LABS: Campylobacter PCR Not Detected (NotDetected)
[2025-02-12 01:35] LABS: Adenovirus F 40/41 PCR Not Detected (NotDetected); Enteroaggregative E.coli(EAEC) Not Detected (NotDetected); Shiga-like Toxin E.coli (STEC) Not Detected (NotDetected); Vibrio species PCR Not Detected (NotDetected)
[2025-02-12] MEDS: MELATONIN 3 MG TAB PO PRN (01:51)
[2025-02-12] MEDS: LACTATED RINGER'S 1,000 ML IV SCH (01:51)
[2025-02-12 06:06] LABS: Anion Gap 4.0 (3-11); Blood Urea Nitrogen 10.0 mg/dl (6-23); Calcium 7.8 mg/dl (8.6-10.3); Carbon Dioxide 28.0 mmol/L (21-32); Chloride 108.0 mmol/L (98-107); Creatinine Clr Calc Pharmacy 126.0 ml/min; Glucose 103.0 mg/dl (70-99(Fasting)); Potassium 3.4 mmol/L (3.5-5.1); Sodium 140.0 mmol/L (136-145)
[2025-02-12] MEDS: ACETAMINOPHEN 325 MG TAB PO PRN (08:21)
[2025-02-12] MEDS: POTASSIUM CHLORIDE CRTAB 20 MEQ TABCR PO STA (09:21)
[2025-02-12] MEDS: D5W AND LACTATED RINGERS 1,000 ML IV SCH (09:24)
--- NOTE | 2025-02-12 10:32 | Gastrointestinal Consultation ---
Date of Consultation February 12, 2025 Assessment & Plan (1) Ileus: Pleasant man with abrupt onset of abdominal pain, bloating and diarrhea. I think all of his symptoms are related to his norovirus infection and he seems to be better now. No further evaluation needed from my standpoint at this time. S hould be okay to go home when you are ready to discharge him. I suggested he have a follow up colonoscopy because of his history of polyps but he doesn't seem interested and no emergent evaluation needed now. History of Present Illness Reason for Consultation: ileus Attending Physician: Grady Cunningham MD History of Present Illness 69 year old man who had abrupt onset of bloating and abdominal pain yesterday. Coinciding with that he had profuse diarrhea. This continued through the day until he came to ED. The pain finally went away after IV tylenol and an anxiety medication. He feels fine now. Stool has returned positive for norovirus. Patient states he does not usually have issues with his bowels except for occasional constipation which resolves with "red wine". He does not take any prescription meds at home. He did have a colonoscopy by Dr. Toussaint two years ago and had a sigmoid perforation that was closed with padlock device, thus he says he will never have another colonoscopy. He does admit to eating at a [employer]et in [place] on Thursday prior to this occurring. 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 Right cheek biopsied 05/25/23 with negative margins Second degree burn Right wrist pain Right inguinal hernia Recurrent right inguinal hernia Right hip pain Eustachian tube dysfunction Hamstring strain High serum lactate Knee effusion Lip numbness Left wrist pain Left knee injury Left elbow pain COVID-19 Chest pain Acute hypotension Abnormal liver enzymes Scratch of right hand Hx of hepatitis (1978) Hep A Hx of hypotension 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 02/02/23-02/04/23- repaired using padlock over the scope clip ; treated with Zosyn- discharged on Cipro and Flagyl Osteoarthritis History of COVID-19 (01/2021) Jan 2021, Pneumonia followed- admitted- no current issues Emphysema lung suggested per 03/06/20 preop CXR pt denies Scoliosis Neuropathy feet History of cardiac murmur as a child - no murmur at PAT visit 02/05/23 - ECHO 2020 showed only mild TR Surgical History Status post arthroscopy of knee 2020 Frantz partial medial and lateral meniscectomy S/P left knee arthroscopy PHILLIP Santo (2004) Hx of colonoscopy with polypectomy History of arthroscopy of right knee (2020) left- 2004 and 2020 Frantz partial medial and lateral meniscectomy H/O left knee surgery (2020) 2020 Dr. Landry, partial medial and lateral meniscectomy left knee arthroscopy - [place] 2004 H/O right inguinal hernia repair (2019) Right Laparoscopic Recurrent Inguinal Hernia Repair with Mesh: 01/11/20: Grade view 2/3, MAC# 3.0, ETT 8.[address] [facility] History of non-cataract eye surgery hx retina detachment both eyes. History of hernia surgery (1987) Left inguinal (1987) History of tonsillectomy and adenoidectomy History of laparoscopy of undescended testicle History of surgery Incision of external thrombosed hemorrhoid History of cataract surgery both eyes. S/P ankle fusion (1971) 1971, left , hardware and since removed. S/P hernia repair (09/2016) Open right inguinal hernia repair (09/2016) Family History Sister Breast cancer Cancer Father Prostate cancer Family history of cardiac disorder Hypertension Cancer Mother Family history of cardiac disorder Diabetes Hypertension Cancer Other SIDS (sudden syndrome) Denies family history of Colon cancer Ovarian cancer Crohn's disease Myocardial infarction Ulcerative colitis Social History Smoking Status: Former smoker Tobacco Type: Cigarettes Age Started Using Tobacco: 12; Age Quit Using Tobacco: 22; packs per day: 0.5; Second Hand Exposure: No; Do You Dip or Chew Tobacco: No; Hx Alcohol Use: Yes Alcohol type: wine Alcohol Intake Frequency: 4 or More x per/Week Alcohol Intake Frequency Comment: 2 glasses of wine a day Hx Substance Use: No Preferred Language: Cameroonian Communication Ability: Effective Visual Impairment: Limited Hearing Ability: Normal Educational Technician Required: No Beliefs That Will Affect Care: None marital status: / Current Living Situation: Family Current Living Situation Comment: twin sons current occupational status: retired current occupation: used to work in [employer] How many Children do You have: 2 Feels Safe at Home: Yes Safety Concerns: Feels Safe At This Time Childhood Exposure to Second-Hand Smoke: No Diet: other Diet Comment: kosher diet caffeine: Yes during the past year weight has: remained stable Dental Care, Regularly: Yes Physical Activity Frequency: Daily Physical Activity Frequency Comment: gardening, housework, yardwork Seatbelt Use: always Sunscreen Use: No Do you think of yourself as: straight/heterosexual Sexual Activity: has been sexually active, but not for at least 12 months Gender Identity: Male Assistive Devices: Glasses Review of Systems Review of Systems: All systems reviewed & are unremarkable except as noted in HPI & below Physical Exam Physical Exam: Pleasant conversant man in no distress Constitutional: WD/WN, vitals as above Neck: trachea midline, no thyromegaly Respiratory: normal respiratory effort, lungs clear to auscultation Cardiovascular: RRR, no murmur, no edema Gastrointestinal (Abdomen): normal bowel sounds, soft, nontender, no hepatosplenomegaly Results & Data Vital Signs (Past 12 Hours) Vital Signs Temp Pulse Pulse Pulse Resp BP BP 02/12/25 08:22 36.4 C L 83 21 106/69 02/12/25 07:40 81 02/12/25 05:00 73 21 86/53 L 02/12/25 04:30 69 22 98/62 L 02/12/25 04:00 71 20 85/47 L 02/12/25 03:00 73 20 98/65 L 02/12/25 02:30 79 20 02/12/25 02:25 76 18 107/72 02/12/25 01:43 70 02/12/25 01:30 95/59 L 02/12/25 01:30 71 19 02/12/25 00:00 83 16 117/78 02/11/25 23:41 95 H 02/11/25 23:00 87 16 99/63 L Pulse Ox O2 Del Method 02/12/25 08:22 93 Room Air 02/12/25 07:40 02/12/25 05:00 02/12/25 04:30 02/12/25 04:00 02/12/25 03:00 95 02/12/25 02:30 95 02/12/25 02:25 95 Room Air 02/12/25 01:43 02/12/25 01:30 02/12/25 01:30 94 Room Air 02/12/25 00:00 93 Room Air 02/11/25 23:41 02/11/25 23:00 91 Room Air
[2025-02-12 13:44] VITALS: BP 118/76; PULSE 69; RESP 16; TEMP 97.9; O2SAT 94
--- NOTE | 2025-02-12 16:01 | Discharge Summary ---
Discharge Summary Date of Service February 12, 2025 Principal Dx & Hospital Course #1 = Principal Diagnosis (1) Abdominal pain: (2) Ileus: (3) Diarrhea: (4) Elevated alkaline phosphatase level: Plan 69-year-old male PMHx anxiety, sleep disturbances, peripheral neuropathy, B12 deficiency, OA, chronic venous stasis of both legs, keratoses presenting for abdominal pain with bloating and increased gas starting day of arrival. Labs are gross unremarkable with exception of alkaline phosphatase elevated at 112 and glucose slightly elevated at 143. His imaging of the abdomen does reveal findings suggestive of a possible diffuse ileus, chest imaging does not reveal any acute findings with exception of some fluid-filled distention of the stomach. Admission for abdominal pain and probable ileus. #Abdominal pain/Ileus/Diarrhea Abdominal distention, pain, and increased gas starting day of arrival. Having diarrhea, > 10 episodes per day; pending stool studies. Ileus at this time, may be infectious related. No opioids, last abx ~ 2 weeks NON [employer] INSPECT[employer] for PNA. Admission for IVF, pain management, further bowel management. - Patient's symptoms improved through hospitalization, likely due to norovirus. Patient seen eval by gastroenterology, stable from their point of view for discharge. Recommendations are for the patient to follow-up with her primary care physician, consideration of colonoscopy in the near future. #Elevated alkaline phosphatase With abdominal pain, no additional LFT abnormalities. Does have history of OA. - Alkaline phosphatase 112, remaining LFTs WNL - Trend as Outpatient by PCP. #Sleep disturbances/BLAYNE- Cannot tolerate CPAP; Melatonin prn #H/o SCC- Follows with dermatology Dispo: Admit, med/sx VTE Prophylaxis: SCDs This document was dictated utilizing [employer]. Please excuse any grammatical errors that may be secondary to use of this software. Admission HPI Per Admitting Provider 69-year-old male PMHx anxiety, sleep disturbances, peripheral neuropathy, B12 deficiency, OA, chronic venous stasis of both legs, keratoses presenting for abdominal pain with bloating and increased gas starting day of arrival. Reports that he has had ~ > 10 episodes of diarrhea starting the day of arrival, accompanied by abdominal discomfort and bloating. Denies N/V. He did have blood in his stool with one episode of diarrhea towards the end of the bout and feels that it was 2/2 irritation to his bottom. His usually BM regimen is every morning, ~ 2x. His last normal BM was the morning [employer] INSPECTOR. He was on abx ~ 2 weeks NON DE[employer] TESTING INSPECTOR for PNA, prescribed by outside facility. Also reports eating at a [employer] buffet the week NON [employer]ING INSPECTOR. He feels weak at baseline, feels that he is "run down." No one around him is with similar symptoms. Reports that he is always "somewhat" SOB, not worse than usual at present. Denies CP, palpitations, N/V, numbness/tingling, F/C, URI symptoms, LUTS, syncope, or falls. 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 Please see Dr. Adams's attestation for adjustments/additions to treatment plan. Discharge Plan Discharge Items Patient Disposition: Home - Self-Care Reason For Visit: ABD PAIN, ILEUS Discharge Diagnosis: norovirus Condition on Discharge: Good Activity: Resume your previous activity Non-emergency contact: Primary Care Provider Call non-emergency contact if: you have any medication questions, your symptoms worsen, your pain is not controlled and you have a fever Follow-up/Referrals: Marcelo Deras, [Primary Care Provider] - Diet: Heart Healthy and Low Fiber Addtl Attending Provider Instructions: please follow-up with your primary care physician in the next 2 weeks. If you have any worsening symptoms consider returning to the hospital at that time. You will benefit from having a colonoscopy done in the near future, please reach out to your primary care physician in relation to this. Pending Studies at Discharge: No Stand-Alone Forms: My Submitnet, Smoking Cessation Medications and DC Order Prescriptions: Continued Moringa Foster Powder 1 dose PO QAM Food Base Multivitamin 1 dose PO DAILY ayotvqwoljj-[id number] C-Mn [Glucosamine 1500 Complex] 500-400 mg Capsule 1 cap PO DAILY Discharge Orders: Discharge Order (Routine); Ordered 02/12/25 Ordered By: Grady Yu/Other Patient Handouts: Understanding Norovirus Admission Data Admit Date/Time: 02/11/25 22:21 Attending Provider: Grady Cunningham Admit Provider: Mirian Adams Primary Care Provider: Marcelo Deras Other Providers: Mirian Adams; Isaiah Tello Hospital Stay Data Consultations 02/11/25 21:42 ED Decision to Admit Stat 02/11/25 23:48 Consult Gastroenterology Routine Diagnostic Imagining Performed 02/11/25 17:57 CT Abd and Pelvis [CT abd pelvis IV con only] Stat CT angio chest PE protocol Stat Pending Results Patient Have Any Pending Studies at Discharge: No Discharge Instructions Given to Patient (Per Discharging Provider) please follow-up with your primary care physician in the next 2 weeks. If you have any worsening symptoms consider returning to the hospital at that time. You will benefit from having a colonoscopy done in the near future, please reach out to your primary care physician in relation to this. Total Time Total Time Spent Total Time Spent (In Minutes): Greater than 35 minutes were spent with discharge coordination and care of this patient. Coding Level of Care Code 20439 INP/OBS DISCH >30 MIN Diagnoses Abdominal pain R10.9 Ileus K56.7 Diarrhea R19.7 Elevated alkaline phosphatase level R74.8
--- NOTE | 2025-02-13 10:39 | Electrocardiogram Report ---
Test Reason : Blood Pressure : */* mmHG Vent. Rate : 90 BPM Atrial Rate : 90 BPM P-R Int : 164 ms QRS Dur : 92 ms QT Int : 356 ms P-R-T Axes : 71 58 66 degrees QTcB Int : 435 ms Normal sinus rhythm Normal ECG When compared with ECG of 09-Feb-2024 10:06, Premature ventricular complexes are no longer Present Confirmed by Juanita mAbriz (Jason) on 02/13/2025 10:39:06 AM Referred By: REFERRED SELF Confirmed By: Juanita Ambriz
== END 2025-02-12 16:13 | disposition home or self-care (01) | DRG 392 ==
LOC: ED 17:15 → EDINP 22:21 → INTOOBSV 22:21 → SUATTDRO 22:21 → 3E 23:49